=== PATIENT | male | born 1935 | race Caucasian/White ===

== ENCOUNTER 2017-01-25 06:08 | Inpatient (IN) | payer MEDICARE, OTHER ==
--- NOTE | 2017-01-25 05:28 | EDM.PDOC ---
ED HISTORY OF PRESENT ILLNESS - General Chief Complaint: Cardiovascular Problem Stated Complaint: IN BY AMBULANCE Time Seen by Provider: 01/25/17 05:25 Source of Information: Reports: Patient, EMS History Limitations: Reports: No limitations - History of Present Illness INITIAL COMMENTS - FREE TEXT/NARRATIVE: 81 yo white male w/ increasing SOB X 2 days. PMHx. CHF. Pt. denies Chest Pain Symptom Onset Date: 01/24/17 Symptom Onset Time: 12:00 Timing/Duration: Reports: Day(s): Severity: moderate Location, General: Reports: chest Worsens with: Reports: Movement Associated Symptoms (General): Reports: no other symptoms - Related Data Allergies/ADRs: Allergies Allergy/AdvReac Type Severity Reaction Status Date / Time No Known Allergies Allergy Verified 01/25/17 05:33 Home Meds: Home Meds Famotidine [Pepcid] 40 mg PO DAILY PRN 10/31/14 [History] Methocarbamol 375 mg PO DAILY PRN 10/31/14 [History] Rivaroxaban [Xarelto] 20 mg PO DAILY 10/31/14 [History] Zolpidem [Ambien] 5 mg PO BEDTIME PRN 10/31/14 [History] Citalopram [Celexa] 20 mg PO DAILY PRN 07/19/15 [History] Sennosides/Docusate Sodium [Stool Softener] 1 tab PO DAILY PRN 07/19/15 [History ] Albuterol [Ventolin HFA] 2 puff INH ASDIRECTED PRN 11/20/16 [History] Fluticasone Propionate [Flovent] 2 inh INH DAILY 11/20/16 [History] Levothyroxine [Synthroid] 100 mcg PO DAILY 11/20/16 [History] Lisinopril 5 mg PO DAILY 11/20/16 [History] Metoprolol Succinate [Toprol XL] 100 mg PO DAILY 11/20/16 [History] Furosemide [Lasix] 40 mg PO BIDDIURETIC 30 Days 11/24/16 [Rx] Potassium Chloride [Klor-Con 10] 20 meq PO WITHBREAKFAST 30 Days 11/24/16 [Rx] Past Medical History HEENT History: Reports: Impaired vision Other HEENT History: wears glasses for reading only Cardiovascular History: Reports: Afib, CAD, Heart Failure, [place], SOB on exertion Respiratory History: Reports: SOB Gastrointestinal History: Reports: GERD Genitourinary History: Reports: None Musculoskeletal History: Reports: Back pain, chronic, Other (see below) Other Musculoskeletal History: right hip pain, chronic Neurological History: Reports: CVA Psychiatric History: Reports: Depression Endocrine/Metabolic History: Reports: Diabetes, type II, Hypothyroidism Hematologic History: Reports: Anticoagulation therapy Immunologic History: Reports: None Oncologic (Cancer) History: Reports: None Dermatologic History: Reports: None - Infectious Disease History Infectious Disease History: Reports: Chicken pox, Measles, Mumps - Past Surgical History Head Surgeries/Procedures: Reports: None Cardiovascular Surgical History: Reports: Aneurysm, Cardiac Ablation, Coronary artery bypass, Other (see below) Other Cardiovascular Surgeries/Procedures: cardioversion GI Surgical History: Reports: Other (see below) Other GI Surgeries/Procedures: abdominal aaortic aneurysm repair Social & Family History - Family History Family Medical History: Noncontributory Neurological: Reports: CVA - Tobacco Use Smoking Status *Q: Former Smoker Years of Tobacco use: 20 Packs/Tins Daily: 1 Second Hand Smoke Exposure: No - Caffeine Use Caffeine Use: Reports: Coffee - Alcohol Use Days Per Week of Alcohol Use: 7 Number of Drinks Per Day: 2 Total Drinks Per Week: 14 - Recreational Drug Use Recreational Drug Use: No - Living Situation & Occupation Living situation: Reports: , with spouse Occupation: retired ED ROS GENERAL - Review of Systems Review Of Systems: See Below Constitutional: Reports: no symptoms HEENT: Reports: No symptoms Respiratory: Reports: Shortness of Breath Cardiovascular: Reports: Edema (bilat legs) Endocrine: Reports: no symptoms GI/Abdominal: Reports: No symptoms : Reports: no symptoms Musculoskeletal: Reports: no symptoms Skin: Reports: no symptoms Neurological: Reports: No Symptoms Psychiatric: Reports: No symptoms Hematologic/Lymphatic: Reports: no symptoms Immunologic: Reports: no symptoms ED EXAM, GENERAL - Physical Exam Exam: See Below Exam Limited By: No limitations General Appearance: alert, obese Eye Exam: bilateral eye: PERRL Ears: normal external exam Nose: normal inspection Throat/Mouth: Normal inspection Head: atraumatic Neck: normal inspection, supple, non-tender Respiratory/Chest: no respiratory distress, rales Cardiovascular: normal peripheral pulses, regular rate, rhythm Peripheral Pulses: 2+: carotid (L), carotid (R) GI/Abdominal: normal bowel sounds, soft, non tender Back Exam: normal inspection, full range of motion Extremities: pedal edema (bilateral legs), other Neurological: alert, oriented, CN II-XII intact Psychiatric: normal affect Skin Exam: Warm, Intact Lymphatic: no adenopathy Course - Vital Signs Last Recorded V/S: Last Vital Signs Temp 36.6 C 01/25/17 05:28 Pulse 90 01/25/17 05:28 Resp 20 01/25/17 05:28 BP 131/76 01/25/17 05:28 Pulse Ox 95 01/25/17 05:28 - Orders/Labs/Meds Orders: Active Orders 24 hr Category Date Time Status EKG Documentation Completion [RC] STAT Care 01/25/17 05:29 Active Insert Urinary Catheter [OM.PC] Q24H Care 01/25/17 05:30 Ordered Urinary Catheter Assessment [RC] ASDIRECTED Care 01/25/17 05:30 Active Chest 1V Frontal [CR] Urgent Exams 01/25/17 05:29 Taken TSH ULTRASENSITIVE [CHEM] Stat Lab 01/25/17 05:45 Received Labs: Laboratory Tests 01/25/17 01/25/17 01/25/17 Range/Units 05:45 05:45 05:45 WBC 8.2 (5.0-10.0) 10^3/uL RBC 4.19 L (4.6-6.2) 10^6/uL Hgb 13.0 L (14.0-18.0) g/dL Hct 40.4 (40.0-54.0) % MCV 96.4 (80-100) fL MCH 31.0 (27.0-34.0) pg MCHC 32.2 L (33.0-35.0) g/dL Plt Count 196 (150-450) 10^3/uL Neut % (Auto) 71.9 (42.2-75.2) % Lymph % (Auto) 10.9 L (20.5-50.1) % Harvey % (Auto) 11.9 H (2-8) % Eos % (Auto) 5.1 H (1.0-3.0) % Baso % (Auto) 0.2 (0.0-1.0) % D-Dimer, Quantitative 1090 H (0-400) ng/mL Sodium 139 (135-145) mmol/L Potassium 4.0 (3.6-5.0) mmol/L Chloride 101 (101-111) mmol/L Carbon Dioxide 29.0 (21.0-31.0) mmol/L Anion Gap 13.0 BUN 20 H (7-18) mg/dL Creatinine 1.2 (0.6-1.3) mg/dL Est Cr Clr Drug Dosing 45.90 mL/min Estimated GFR (MDRD) 58 BUN/Creatinine Ratio 16.66 Glucose 145 H (74-105) mg/dL Calcium 8.7 (8.4-10.2) mg/dl Total Bilirubin 1.6 H (0.2-1.0) mg/dL AST 21 (10-42) IU/L ALT 14 (10-60) IU/L Alkaline Phosphatase 82 (42-121) IU/L Troponin I < 0.02 (0.00-0.02) ng/ml B-Natriuretic Peptide 402 H (0-100) pg/ml Total Protein 7.0 (6.7-8.2) g/dl Albumin 4.0 (3.2-5.5) g/dl Globulin 3.0 Albumin/Globulin Ratio 1.33 Meds: Medications Discontinued Medications Generic Name Dose Route Start Last Admin Trade Name Freq PRN Reason Stop Dose Admin Furosemide 40 mg 01/25/17 05:29 01/25/17 05:44 Lasix IVPUSH 01/25/17 05:30 40 mg NOW ONE Administration Departure - Departure Time of Disposition: 06:36 Disposition: Admitted As Inpatient 67 Condition: fair Clinical Impression: CHF (congestive heart failure), Pleural effusion due to congestive heart failure - My Orders Last 24 Hours: My Active Orders 01/25/17 05:29 EKG Documentation Completion [RC] STAT Chest 1V Frontal [CR] Urgent 01/25/17 05:30 Insert Urinary Catheter [OM.PC] Q24H Urinary Catheter Assessment [RC] ASDIRECTED 01/25/17 05:45 TSH ULTRASENSITIVE [CHEM] Stat - Assessment/Plan Last 24 Hours: My Active Orders 01/25/17 05:29 EKG Documentation Completion [RC] STAT Chest 1V Frontal [CR] Urgent 01/25/17 05:30 Insert Urinary Catheter [OM.PC] Q24H Urinary Catheter Assessment [RC] ASDIRECTED 01/25/17 05:45 TSH ULTRASENSITIVE [CHEM] Stat
[~2017-01-25 06:08] MED LIST: Furosemide 40 MG/4 ML VIAL IVPUSH ONE
[2017-01-25 06:11] LABS: CHLORIDE,CL 101 mmol/L (101-111); SODIUM,NA 139 mmol/L (135-145)
[2017-01-25] MEDS ORDERED: Morphine 2 MG/ML Syringe IVPUSH PRN (07:24)
[2017-01-25] MEDS ORDERED: Famotidine 20 MG Tab PO PRN (07:29)
[2017-01-25] MEDS ORDERED: Albuterol 6.7 GM Inhaler INH PRN (07:29)
[2017-01-25] MEDS ORDERED: METHOCARBAMOL PO PRN (07:29)
[2017-01-25] MEDS ORDERED: FLUTICASONE PROPIONATE INH SCH (09:00)
[2017-01-25] MEDS: Furosemide 40 MG/4 ML VIAL IVPUSH SCH ×2 (10:24→13:17)
[2017-01-25] MEDS: Rivaroxaban 10 MG Tab PO SCH (10:48)
[2017-01-25] MEDS: Levothyroxine 100 MCG Tab PO SCH (10:48)
[2017-01-25] MEDS: Lisinopril 5 MG Tab PO SCH (10:49)
[2017-01-25] MEDS: Metoprolol Succinate 50 MG Tab.ER PO SCH (10:49)
[2017-01-25] MEDS: Albuterol/Ipratropium 3.0-0.5 MG/3 ML Neb Soln NEB PRN ×3 (10:50→19:43)
--- NOTE | 2017-01-25 12:07 | HP ---
CHIEF COMPLAINT: Shortness of breath. HISTORY OF PRESENT ILLNESS: Mr. Roberto Carlos Alvarenga presented with complaint of shortness of breath via EMS. The patient started having shortness of breath yesterday. Initially, it was mild, but significantly got worse over time. He was not able to sleep last night and had to sit off most of the time. Shortness of breath is present at rest, but significantly worse with activity. He does have bilateral lower extremity edema. No significant cough, fever, chills, or rigors. No nausea or vomiting. The patient has been compliant with his medications. He normally weighs himself and has not noted any significant change in his weight. No abdominal pain. No dysuria or frequency or micturition. He does have history of atrial fibrillation, on chronic anticoagulation. REVIEW OF SYSTEMS: Constitutional, cardiac, respiratory, gastrointestinal, genitourinary and neurologic system were reviewed. Allergy, hematology, oncology also reviewed. No other pertinent findings. SOCIAL HISTORY: The patient resides with his . Denies any alcohol use. FAMILY HISTORY: Reviewed and considered noncontributory. MEDICATIONS: Reviewed. The patient is on: 1. Xarelto. 2. Lasix 40 mg b.i.d. OBJECTIVE: General: The patient is alert, oriented to place, time, and person. Head: Atraumatic and normocephalic. Ear, Nose, and Throat: Unremarkable. Neck: Supple. Chest: Diminished breath sounds bilaterally. Crackles bilaterally. CVS: No significant murmur appreciated. Jugular venous pressure appears elevated. Abdomen: Soft, nontender. Extremities: Bilateral pitting edema. Skin: No rash. Neuro: Symmetric strength in all extremities. Vital signs: Reviewed. The patient was hypoxic on room air. He is on 2 L now and saturating at 92%. ASSESSMENT: 1. Acute hypoxemic respiratory failure. The patient's oxygen saturation was down in the 80s when he was picked up by the EMS. He is requiring 2 L/minute of oxygen at this point. 2. Acute exacerbation of diastolic congestive heart failure. The patient has a prior history of congestive heart failure with diastolic dysfunction. His ejection fraction was normal at more than 60%. 3. Chronic anticoagulation. The patient has been on Xarelto. 4. Atrial fibrillation. 5. Hypertension. PLAN: 1. Admit the patient to medical floor. 2. Place him on telemetry. 3. Troponin every 6 x2. 4. Start intravenous Lasix 40 mg every 12 hours. 5. Monitor input and output closely. 6. Start the patient on Xarelto. 7. Chart reviewed. Discussed with emergency room provider. [facility] /[id number]
[2017-01-25] MEDS ORDERED: Levofloxacin 500 MG Tab PO ONE (12:15)
[2017-01-25] MEDS ORDERED: Heparin Sodium 5,000 Units/ML Vial SUBCUT SCH (14:00)
--- NOTE | 2017-01-25 16:52 | EKG ---
01/25/2017 - RAFAEL POON - This 12-lead EKG shows atrial fibrillation with a controlled ventricular rate of 87. Low voltage in the precordial leads. No acute ST-segment or T-wave changes. [facility] /[id number]
[2017-01-25] MEDS ORDERED: Bisacodyl 10 MG Supp RECTAL PRN (18:00)
[2017-01-25] MEDS ORDERED: Magnesium Hydroxide 400 MG/5 ML Susp 30 ML Cup PO ONE (18:00)
--- NOTE | 2017-01-25 20:52 | PN ---
DATE: 01/25/2017 HISTORY OF PRESENT ILLNESS: Mr. Alvarenga is an 81-year-old gentleman with past medical history of diastolic congestive heart failure, coronary artery disease, renal insufficiency, diabetes, carotid artery disease, and status post AAA repair. He was in his usual state of health yesterday until about 4 in the afternoon when he began to develop dyspnea and this worsened overnight. He presented to the emergency room at about 5 o'clock this morning. A single-view chest x-ray was done, which showed some mild pulmonary venous congestion and underlying multifocal pneumonia could not be completely ruled out due to the small right pleural effusion. There is cardiomegaly. Labs at the time of admission showed normal white count and platelets. Hemoglobin and hematocrit were 13 and 40. Electrolytes were normal. BUN and creatinine were 20 and 1.2 with GFR of 58. Two troponins were negative at less than 0.02. His baseline BNP is usually about 200, on admission BNP was 400. His EKG showed atrial fibrillation with a controlled ventricular rate of 87 without any acute changes. He was admitted for further management. He was given 40 mg IV Lasix. He was started on levofloxacin to cover for pneumonia. He is already on Xarelto and this will be continued for VTE prophylaxis and his usual medications were continued. Review of his clinical data shows that he has had a vigorous 2 L diuresis since the time of the IV Lasix and he will be continued on his usual dose of 40 mg twice a day and this will be given by the IV route. Otherwise, vital signs have been stable. Ventricular rate has remained controlled and blood pressures are adequate. He has improved greatly over the course of the day. PHYSICAL EXAMINATION: VITAL SIGNS: On exam, he is lying comfortably in bed, almost flat. Blood pressure is 148/77, pulse 82 and irregular, respiratory rate 20, oxygen saturation 96% on 2 L, and he is afebrile. HEENT: Unremarkable. ENT was clear. Chest: Showed diminished but clear bilateral breath sounds without active wheezing. There was no dyspnea. Heart: Showed an irregular rate and rhythm. Abdomen: Benign. Extremities: Showed chronic lower extremity edema. Neurologic: He was intact. ASSESSMENT AND PLAN: We will continue the present management. He will continue to receive Lasix by the IV route. He seems to be improving fairly rapidly. No other changes are made in his care today. [facility] /[id number] [place]
[2017-01-26] MEDS: Levothyroxine 100 MCG Tab PO SCH (06:19)
[2017-01-26] MEDS: Lisinopril 5 MG Tab PO SCH (08:33)
[2017-01-26] MEDS: Rivaroxaban 10 MG Tab PO SCH (08:33)
[2017-01-26] MEDS: Metoprolol Succinate 50 MG Tab.ER PO SCH (08:34)
[2017-01-26] MEDS: Furosemide 40 MG/4 ML VIAL IVPUSH SCH ×2 (08:35→13:34)
[2017-01-26] MEDS: Sodium Chloride 0.9% 10 ML Syringe FLUSH PRN ×2 (08:35→13:34)
[2017-01-26] MEDS: Albuterol/Ipratropium 3.0-0.5 MG/3 ML Neb Soln NEB PRN ×2 (09:54→20:08)
--- NOTE | 2017-01-26 10:06 | PN ---
DATE: 01/26/2017 SUBJECTIVE: The patient is 81-year-old gentleman, admitted with acute on chronic diastolic heart failure, and also suspected pneumonia. The patient was empirically started on Levaquin and was also started on IV Lasix 40 mg IV b.i.d., and patient had a good diuresis. The patient this morning is feeling much better. He denies any chest pain, abdominal pain, nausea, vomiting, or any other significant complaints. OBJECTIVE: Vital signs: Blood pressure is 145/83, pulse 72, respirations 20, temperature of 98.1, saturation is 97% on 2 L. Heart: Regular rate and rhythm. Lungs: Diminished breath sounds on both bases, still remarkable for some mild crackles, and mild expiratory wheeze. Abdomen: Obese. Otherwise, soft and nontender. Bowel sounds positive. Extremities: Still remarkable for 1 to 2+ bilateral pedal edema. MEDICATIONS: Reviewed. PLAN: We will continue with IV Lasix and Levaquin, and the rest of his management. We will recheck a CBC and basic metabolic panel in a.m. [facility] /[id number]
[2017-01-26] MEDS: Levofloxacin 250 MG Tab PO SCH (11:50)
[2017-01-26] MEDS: METHOCARBAMOL PO PRN (22:03)
[2017-01-26] MEDS: Citalopram 20 MG Tab PO PRN (22:04)
[2017-01-26] MEDS: Benzonatate 100 MG Cap PO PRN (22:16)
[2017-01-27] MEDS: Levothyroxine 100 MCG Tab PO SCH (07:03)
[2017-01-27] MEDS: Furosemide 40 MG/4 ML VIAL IVPUSH SCH ×2 (08:13→13:26)
[2017-01-27] MEDS: Sodium Chloride 0.9% 10 ML Syringe FLUSH PRN ×5 (08:13→20:08)
[2017-01-27] MEDS: Metoprolol Succinate 50 MG Tab.ER PO SCH (08:17)
[2017-01-27] MEDS: Rivaroxaban 10 MG Tab PO SCH (08:18)
[2017-01-27] MEDS: Lisinopril 5 MG Tab PO SCH (08:19)
[2017-01-27] MEDS: methylPREDNISolone Sodium Succinate 40 MG/1 ML SDV IVPUSH SCH ×2 (10:05→17:08)
--- NOTE | 2017-01-27 10:57 | PN ---
DATE: 01/27/2017 SUBJECTIVE: The patient had a good night sleep, but the patient is still wheezing though and still has some shortness of breath. He denies any chest pain or palpitation, abdominal pain, nausea, or vomiting. His Flynn catheter drainage is slightly bloody but apparently, the patient has been pulling on his catheter while he was sleeping; but, the patient denies any significant pain. MEDICATIONS: Reviewed. OBJECTIVE: Vital Signs: Blood pressure is 141/79, pulse of 82, respirations of 20, temperature is 97.6, saturation is 88% on 2.5 L per nasal cannula. Heart: Regular rate and rhythm. Lungs: Remarkable for scattered wheezing bilaterally with diminished breath sounds on both bases. Abdomen: Obese, soft, nontender. Extremities: Still remarkable for 1+ bilateral pedal edema. No calf tenderness. LABORATORY DATA: Lab workup this morning, CBC; WBC 8.5, hemoglobin is 13.5, hematocrit is 42.6, platelet is 222. Chem-6; CO2 is 32, BUN is 26, glucose is 131, the rest of the panel is unremarkable. PLAN: We will continue with his IV Levaquin, and continue with the IV Lasix. I am also going to start the patient on Solu-Medrol because of his wheezing. We will continue with the rest of his other medication. [facility] /[id number]
[2017-01-27] MEDS: Levofloxacin 250 MG Tab PO SCH (11:17)
[2017-01-27] MEDS: Benzonatate 100 MG Cap PO PRN (20:08)
[2017-01-27] MEDS: Citalopram 20 MG Tab PO PRN (20:08)
[2017-01-27] MEDS: METHOCARBAMOL PO PRN (20:09)
[2017-01-27] MEDS: Albuterol/Ipratropium 3.0-0.5 MG/3 ML Neb Soln NEB PRN (20:24)
[2017-01-27] MEDS: Zolpidem 5 MG Tab PO PRN (22:52)
[2017-01-28] MEDS: methylPREDNISolone Sodium Succinate 40 MG/1 ML SDV IVPUSH SCH ×3 (00:53→17:04)
[2017-01-28] MEDS: Sodium Chloride 0.9% 10 ML Syringe FLUSH PRN ×4 (00:53→17:04)
[2017-01-28] MEDS: Albuterol/Ipratropium 3.0-0.5 MG/3 ML Neb Soln NEB PRN (00:57)
[2017-01-28] MEDS: Benzonatate 100 MG Cap PO PRN ×2 (00:57→20:14)
[2017-01-28] MEDS: Levothyroxine 100 MCG Tab PO SCH (06:12)
[2017-01-28] MEDS: Furosemide 40 MG/4 ML VIAL IVPUSH SCH (07:30)
[2017-01-28] MEDS: Rivaroxaban 10 MG Tab PO SCH (08:43)
[2017-01-28] MEDS: Metoprolol Succinate 50 MG Tab.ER PO SCH (08:43)
[2017-01-28] MEDS: Lisinopril 5 MG Tab PO SCH (08:44)
--- NOTE | 2017-01-28 10:53 | CR ---
Clinical history: 81-year-old male reported on 25 January film to have "possible pulmonary edema versu s multifocal pneumonia and small right pleural effusion". Interpretation: Improved. PA/lateral chest films confirm small dependent pleural effusions blunting the posterior costophrenic sulci (left greater than right) this patient with sternotomy wires and arteriovascular calcificatio ns. Trace fluid in the fissures. Normal cardiac silhouette. No alveolar edema. Subtle right infrahilar atelectasis (infiltrate?). No sign of lung mass or other focal lobar consolidation.
[2017-01-28] MEDS: Levofloxacin 250 MG Tab PO SCH (11:29)
[2017-01-28] MEDS: Furosemide 20 MG Tab PO SCH (13:39)
[2017-01-28] MEDS: METHOCARBAMOL PO PRN (20:13)
[2017-01-28] MEDS: Zolpidem 5 MG Tab PO PRN (20:14)
[2017-01-28] MEDS: Citalopram 20 MG Tab PO PRN (20:14)
[2017-01-29] MEDS: Levothyroxine 100 MCG Tab PO SCH (06:39)
[2017-01-29] MEDS ORDERED: predniSONE 20 MG Tab PO SCH (08:00)
[2017-01-29] MEDS ORDERED: METHOCARBAMOL PO PRN (08:36)
--- NOTE | 2017-01-29 08:53 | PN ---
DATE: 01/28/2017 SUBJECTIVE: The patient is doing much better. He mentioned that his breathing is much better and he had a good night sleep. The patient denies any chest pain, abdominal pain, nausea, or vomiting. OBJECTIVE: Vital Signs: Blood pressure is 129/74, pulse of 97, respirations of 20, temperature of 97.7, saturation is 96% on 1 L per nasal cannula. Heart: Regular rate and rhythm. Normal S1 and S2. LUNGS: Have diminished breath sounds on both bases, but wheezing has improved and has disappeared. No significant crackles. Abdomen: Obese, soft, nontender. Bowel sounds positive. Extremities: Still remarkable for 1 to 2+ bilateral pedal edema. PLAN: We will continue with his present management, and we will do a chest x- ray today for followup. We will recheck a CBC and comp panel in a.m. [facility] /[id number]
[2017-01-29] MEDS ORDERED: Metoprolol Succinate 50 MG Tab.ER PO SCH (09:00)
--- NOTE | 2017-01-29 09:08 | PCM.DCSUM1 ---
Discharge Summary - Hospital Course Free Text/Narrative:: 81-year-old male with spastic history of diabetes mellitus, atrial fibrillations status post ablation, diastolic congestive heart failure present to the emergency room with worsening shortness of breath, most his activities, in addition to lower extremities edema. He had no significant cough, fever, chills, rigors. his exam on admission revealed diminished sounds bilaterally and bilateral crackles. he had bilateral pitting edema. His sats was 92% on 2 L of the oxygen per nasal cannula. on admission WBC 8.2. Hemoglobin 13.0 d-dimer 1090. Sodium 139. BUN 20. Creatinine 1.2. Blood glucose 145. he was started on Lasix 40 mg IV every 12 hours and his home medications were resumed. Liver and was started on Levaquin 250 mg daily for possible pneumonia as his chest x-ray showed possible subtle right infiltrates. yesterday he was started on steroids. Today patient states that he feels much better. He stayed to me( I'm ready to run). He denies shortness of breath, wheezing, chest pain, palpitation, fever, chills, nausea, vomiting, been up in coronary symptoms, constipation. Initially he had Flynn catheter which was removed yesterday. He is urinating normally. He is discharged today to resume home medications, continue Levaquin and prednisone for another 3 days. he was advised to followup with his private care provider in the next 3-5 days. I counseled him about the symptoms that will warranty coming back to the emergency room. patient verbalized understanding and agreed to the plan. today his WBC 18.9 which could be due to starting steroids yesterday. He is clinically much better and is not in distress. - Discharge Data Discharge Date: 01/29/17 Discharge Disposition: Home, Self-Care 01 Condition: Fair - Discharge Diagnosis/Problem(s) (1) CHF (congestive heart failure) SNOMED Code(s): 56780896 ICD Code: I50.9 - HEART FAILURE, UNSPECIFIED Status: Acute Current Visit : Yes (2) Pleural effusion due to congestive heart failure SNOMED Code(s): 10218771 ICD Code: I50.9 - HEART FAILURE, UNSPECIFIED Status: Acute Current Visit : Yes (3) Atrial fibrillation SNOMED Code(s): 96277135 ICD Code: I48.91 - UNSPECIFIED ATRIAL FIBRILLATION Status: Acute Current Visit: No Qualifiers: Atrial fibrillation type: persistent Qualified Code(s): I48.1 - Persistent atrial fibrillation (4) Bronchitis SNOMED Code(s): 60095957 ICD Code: J40 - BRONCHITIS, NOT SPECIFIED ACUTE OR CHRONIC Status: Acute Current Visit: No (5) Congestive heart failure SNOMED Code(s): 67205868 ICD Code: I50.9 - HEART FAILURE, UNSPECIFIED Status: Acute Current Visit : No Qualifiers: Congestive heart failure type: unspecified congestive heart failure type Congestive heart failure chronicity: acute on chronic Qualified Code(s): I50.9 - Heart failure, unspecified (6) Hypertension SNOMED Code(s): 48946543 ICD Code: I10 - ESSENTIAL (PRIMARY) HYPERTENSION Status: Acute Current Visit: No Qualifiers: Hypertension type: essential hypertension Qualified Code(s): I10 - Essential (primary) hypertension - Patient Instructions Diet: Heart Healthy Diet, Diabetic Diet Activity: As Tolerated Showering/Bathing: February Shower Notify Provider of: Fever - Discharge Plan Prescriptions/Med Rec: Benzonatate [Tessalon Perles] 100 mg PO QID PRN #30 cap PRN Reason: Cough Levofloxacin [Levaquin] 250 mg PO Q24H #3 tablet Prednisone [IJD: predniSONE] 40 mg PO WITHBREAKFAST #6 tablet Home Medications: Home Meds Famotidine [Pepcid] 40 mg PO DAILY PRN 10/31/14 [History] Rivaroxaban [Xarelto] 20 mg PO DAILY 10/31/14 [History] Citalopram [Celexa] 20 mg PO DAILY PRN 07/19/15 [History] Sennosides/Docusate Sodium [Stool Softener] 1 tab PO DAILY PRN 07/19/15 [History ] Albuterol [Ventolin HFA] 2 puff INH Q6H PRN 11/20/16 [History] Levothyroxine [Synthroid] 100 mcg PO DAILY 11/20/16 [History] Lisinopril 5 mg PO DAILY 11/20/16 [History] Furosemide [Lasix] 40 mg PO BIDDIURETIC 30 Days 11/24/16 [Rx] Methocarbamol [Robaxin] 250 mg PO Q6H PRN 01/25/17 [History] Metoprolol Succinate [Toprol XL] 100 mg PO DAILY 01/25/17 [History] Zolpidem Tartrate [Ambien] 5 mg PO BEDTIME PRN 01/25/17 [History] Benzonatate [Tessalon Perles] 100 mg PO QID PRN #30 cap 01/29/17 [Rx] Levofloxacin [Levaquin] 250 mg PO Q24H #3 tablet 01/29/17 [Rx] Prednisone [IJD: predniSONE] 40 mg PO WITHBREAKFAST #6 tablet 01/29/17 [Rx] Patient Handouts: Heart Failure, [id number], Prednisone tablets Referrals: Lesly Castle MD [Primary Care Provider] - - Review of Systems General: Reports: No Symptoms HEENT: Reports: no symptoms Pulmonary: Reports: no symptoms Cardiovascular: Reports: No Symptoms Gastrointestinal: Reports: No symptoms Genitourinary: Reports: no symptoms Musculoskeletal: Reports: no symptoms Skin: Reports: no symptoms Neurological: Reports: No Symptoms Psychiatric: Reports: no symptoms - Patient Data Vitals - Most Recent: Last Vital Signs Temp 36.5 C 01/29/17 08:00 Pulse 80 01/29/17 08:00 Resp 20 01/29/17 08:00 BP 159/83 H 01/29/17 08:00 Pulse Ox 93 L 01/29/17 08:00 Weight - Most Recent: 107.864 kg I&O - Last 24 hours: Intake & Output 01/28/17 01/29/17 01/29/17 22:59 06:59 14:59 Intake Total 360 500 Output Total 200 600 Balance 160 -100 Lab Results - Last 24 hrs: Laboratory Results - last 24 hr 01/29/17 01/29/17 Range/Units 06:15 06:15 WBC 18.9 H (5.0-10.0) 10^3/uL RBC 4.49 L (4.6-6.2) 10^6/uL Hgb 13.8 L (14.0-18.0) g/dL Hct 43.1 (40.0-54.0) % MCV 96.0 (80-100) fL MCH 30.7 (27.0-34.0) pg MCHC 32.0 L (33.0-35.0) g/dL Plt Count 277 (150-450) 10^3/uL Neut % (Auto) 90.5 H (42.2-75.2) % Lymph % (Auto) 4.9 L (20.5-50.1) % [place] % (Auto) 4.5 (2-8) % Eos % (Auto) 0.0 L (1.0-3.0) % Baso % (Auto) 0.1 (0.0-1.0) % Sodium 141 (135-145) mmol/L Potassium 5.0 (3.6-5.0) mmol/L Chloride 101 (101-111) mmol/L Carbon Dioxide 31.0 (21.0-31.0) mmol/L Anion Gap 14.0 BUN 42 H (7-18) mg/dL Creatinine 1.3 (0.6-1.3) mg/dL Est Cr Clr Drug Dosing 42.37 mL/min Estimated GFR (MDRD) 53 Glucose 193 H (74-105) mg/dL Calcium 8.9 (8.4-10.2) mg/dl Med Orders - Current: Current Medications Albuterol (Proventil Hfa) 0 gm INH Q6H PRN PRN Reason: Wheezing Albuterol/Ipratropium (Duoneb 3.0-0.5 Mg/3 Ml) 3 ml NEB Q4H PRN PRN Reason: shortness of breath/wheezing Last Admin: 01/28/17 00:57 Dose: 3 ml Benzonatate (Tessalon Perles) 100 mg PO QID PRN PRN Reason: Cough Last Admin: 01/28/17 20:14 Dose: 100 mg Bisacodyl (Dulcolax) 10 mg RECTAL DAILY PRN PRN Reason: Constipation Citalopram Hydrobromide (Celexa) 20 mg PO DAILY PRN PRN Reason: Anxiety Last Admin: 01/28/17 20:14 Dose: 20 mg Famotidine (Pepcid) 40 mg PO DAILY PRN PRN Reason: Heartburn Furosemide (Lasix) 40 mg PO BIDDIURETIC DIVYA Levofloxacin (Levaquin) 250 mg PO Q24H [facility] Stop: 02/01/17 11:01 Last Admin: 01/28/17 11:29 Dose: 250 mg Levothyroxine Sodium (Synthroid) 100 mcg PO DAILY@0700 [facility] Last Admin: 01/29/17 06:39 Dose: 100 mcg Lisinopril (Prinivil) 5 mg PO DAILY [facility] Last Admin: 01/28/17 08:44 Dose: 5 mg Metoprolol Succinate (Toprol Xl) 100 mg PO DAILY [facility] Last Admin: 01/28/17 08:43 Dose: 100 mg Morphine Sulfate (Morphine) 2 mg IVPUSH Q2H PRN PRN Reason: Pain (severe 7-10) Methocarbamol 250mg* (*Own Med) 0 each PO Q6H PRN PRN Reason: Muscle Spasm Last Admin: 01/28/17 20:13 Dose: 1 each Non-Formulary Medication (Methocarbamol [Robaxin]) 250 mg PO Q6H PRN PRN Reason: Pain Prednisone (Prednisone) 40 mg PO WITHBREAKFAST [facility] Rivaroxaban (Xarelto) 20 mg PO DAILY [facility] Last Admin: 01/28/17 08:43 Dose: 20 mg Senna/Docusate Sodium (Senna Plus) 1 tab PO BEDTIME [facility] Last Admin: 01/28/17 20:14 Dose: 1 tab Sodium Chloride (Saline Flush) 10 ml FLUSH ASDIRECTED PRN PRN Reason: Keep Vein Open Last Admin: 01/28/17 17:04 Dose: 10 ml Zolpidem Tartrate (Ambien) 5 mg PO BEDTIME PRN PRN Reason: Sleep Last Admin: 01/28/17 20:14 Dose: 5 mg Discontinued Medications Furosemide (Lasix) 40 mg IVPUSH NOW ONE Stop: 01/25/17 05:30 Last Admin: 01/25/17 05:44 Dose: 40 mg Furosemide (Lasix) 40 mg IVPUSH BIDDIURETIC [facility] Last Admin: 01/28/17 07:30 Dose: 40 mg Furosemide (Lasix) 20 mg PO BIDDIURETIC [facility] Last Admin: 01/28/17 13:39 Dose: 20 mg Heparin Sodium (Porcine) (Heparin Sodium) 5,000 units SUBCUT Q8HR [facility] Levofloxacin (Levaquin) 500 mg PO ONETIME ONE Stop: 01/25/17 12:16 Last Admin: 01/25/17 13:16 Dose: 500 mg Magnesium Hydroxide (Milk Of Magnesia) 30 ml PO ONETIME ONE Stop: 01/25/17 18:01 Last Admin: 01/25/17 19:03 Dose: 30 ml Methylprednisolone Sodium Succinate (Solu-Medrol) 40 mg IVPUSH Q8H [facility] Last Admin: 01/28/17 17:04 Dose: 40 mg Metoprolol Succinate (Toprol Xl) 100 mg PO DAILY [facility] Non-Formulary Medication (Fluticasone Propionate [Flovent]) 2 inh INH DAILY [facility] Last Admin: 01/25/17 13:01 Dose: Not Given Non-Formulary Medication (Methocarbamol [Methocarbamol]) 375 mg PO DAILY PRN PRN Reason: Pain Senna/Docusate Sodium (Senna Plus) 1 tab PO DAILY PRN PRN Reason: Constipation - Exam General: Reports: alert, oriented, cooperative. Denies: no acute distress HEENT: Reports: Pupils equal, Pupils reactive, EOMI, Mucous membr. moist/pink Neck: Reports: supple, no JVD Lungs: Reports: Normal respiratory effort, Decreased breath sounds (globally, but fair air exchange), Wheezing (sporadic, faint). Denies: Crackles, Rales, Rhonchi, Rub, Stridor Cardiovascular: Reports: Irregular Rhythm (Male) Exam: No hernia Back Exam: Reports: normal inspection Extremities: Reports: normal pulses, no tenderness/swelling, no clubbing, no cyanosis, no calf tenderness, calf tenderness, edema (bilateral trace lower extremity edema) Skin: Reports: warm, dry, intact Neurological: Reports: no new focal deficit Psy/Mental Status: Reports: alert, normal affect, normal mood *Q Meaningful Use (DIS) - VTE *Q VTE Criteria *Q: - Stroke *Q Stroke Criteria *Q: - AMI *Q AMI Criteria *Q:
[2017-01-29] MEDS: Rivaroxaban 10 MG Tab PO SCH (09:52)
[2017-01-29] MEDS: Lisinopril 5 MG Tab PO SCH (09:53)
[2017-01-29] MEDS: Metoprolol Succinate 50 MG Tab.ER PO SCH (09:58)
[2017-01-29 09:59] VITALS: BP 145/73
[2017-01-29] MEDS: Furosemide 20 MG Tab PO SCH (10:46)
[2017-01-29] MEDS: Levofloxacin 250 MG Tab PO SCH (12:12)
[2017-01-29] MEDS ORDERED: Furosemide 40 MG Tab PO SCH (14:00)
== END 2017-01-29 11:20 | disposition home or self-care (01) | DRG 291 ==
LOC: DL.ED 06:08 → UNDOADMIN 06:40 → DL.MS 06:40
PROVIDERS: ADMIT Hospitalist; ATTEND Hospitalist
DX: I50.9 Heart failure, unspecified (principal); I50.33 Acute on chronic diastolic (congestive) heart failure; J96.91 Respiratory failure, unspecified with hypoxia; J18.9 Pneumonia, unspecified organism; E11.9 Type 2 diabetes mellitus without complications; I48.91 Unspecified atrial fibrillation; J40 Bronchitis, not specified as acute or chronic; I25.10 Atherosclerotic heart disease of native coronary artery without angina pectoris
CPT/HCPCS: 36415; 51702; 71010; 80053; 83880; 84443; 84484; 85025; 85379; 93005; 93010; 96374; 99285 ×2; J1940; 71020; 80048; 94010; 94640; A9270-GY; J2920; J7050

== ENCOUNTER 2017-06-07 17:07 | Emergency (ER) | payer MEDICARE, OTHER ==
[2017-06-07] MEDS ORDERED: Albuterol/Ipratropium 3.0-0.5 MG/3 ML Neb Soln NEB ONE (17:31)
--- NOTE | 2017-06-07 19:10 | EDM.PDOC ---
Scribed by Nelda Sams 06/07/17 2670 for Kelvin Dahl MD <Kelvin Dahl - Last Filed: 06/07/17 19:09> ED HPI GENERAL MEDICAL PROBLEM - General Chief Complaint: Chest Pain Stated Complaint: COMING BY AMBULANCE Time Seen by Provider: 06/07/17 17:24 Source of Information: Reports: Patient, RN, RN Notes Reviewed History Limitations: Reports: No Limitations - History of Present Illness INITIAL COMMENTS - FREE TEXT/NARRATIVE: Complained of not feeling well in general for past 3 days. Patient reports non- productive cough, fatigue and loss of appetite loss. Denies chest pain, abdominal pain, nausea, vomiting, diarrhea, cough, fever or chills. Patient's reports patient had a brief episode this afternoon when he didn't recognize her. Patient denies confusion. Location: Reports: Chest Quality: Reports: Ache Severity: Moderate Improves with: Reports: None Worsens with: Reports: None Associated Symptoms: Reports: No Other Symptoms - Related Data Allergies Allergy/AdvReac Type Severity Reaction Status Date / Time No Known Allergies Allergy Verified 01/25/17 08:32 Home Meds: Home Meds Famotidine [Pepcid] 40 mg PO DAILY PRN 10/31/14 [History] Rivaroxaban [Xarelto] 20 mg PO DAILY 10/31/14 [History] Citalopram [Celexa] 20 mg PO DAILY 07/19/15 [History] Sennosides/Docusate Sodium [Stool Softener] 1 tab PO DAILY PRN 07/19/15 [History ] Albuterol [Ventolin HFA] 2 puff INH Q6H PRN 11/20/16 [History] Levothyroxine [Synthroid] 100 mcg PO DAILY 11/20/16 [History] Lisinopril 5 mg PO DAILY 11/20/16 [History] Furosemide [Lasix] 40 mg PO BIDDIURETIC 30 Days 11/24/16 [Rx] Methocarbamol [Robaxin] 250 mg PO Q6H PRN 01/25/17 [History] Metoprolol Succinate [Toprol XL] 100 mg PO DAILY 01/25/17 [History] Zolpidem Tartrate [Ambien] 5 mg PO BEDTIME PRN 01/25/17 [History] Glimepiride [Amaryl] 1 mg PO DAILY 06/07/17 [History] Rivaroxaban [Xarelto] 20 mg PO DAILY 06/07/17 [History] Rosuvastatin Calcium 5 mg PO Q48H 06/07/17 [History] Past Medical History HEENT History: Reports: Cataract, Hard of Hearing, Impaired Vision Other HEENT History: wears glasses for reading only Cardiovascular History: Reports: Afib, Aneurysm, CAD, Heart Failure, DC, SOB on Exertion Respiratory History: Reports: SOB Gastrointestinal History: Reports: Chronic Constipation, GERD Genitourinary History: Reports: None Musculoskeletal History: Reports: Back Pain, Chronic, Other (See Below) Other Musculoskeletal History: right hip pain, chronic Neurological History: Reports: CVA Psychiatric History: Reports: Depression Endocrine/Metabolic History: Reports: Hypothyroidism, Obesity/BMI 30+ Hematologic History: Reports: Anticoagulation Therapy Immunologic History: Reports: None Oncologic (Cancer) History: Reports: None Dermatologic History: Reports: None - Infectious Disease History Infectious Disease History: Reports: Chicken Pox, Measles, Mumps - Past Surgical History HEENT Surgical History: Reports: Cataract Surgery Cardiovascular Surgical History: Reports: Aneurysm, Cardiac Ablation, Coronary Artery Bypass, Other (See Below) GI Surgical History: Reports: Colonoscopy, Other (See Below) Social & Family History - Family History Family Medical History: Noncontributory Neurological: Reports: CVA - Tobacco Use Smoking Status *Q: Former Smoker Years of Tobacco use: 20 Packs/Tins Daily: 1 Used Tobacco, but Quit: Yes Month Tobacco Last Used: 1979 Second Hand Smoke Exposure: No - Caffeine Use Caffeine Use: Reports: Coffee - Alcohol Use Days Per Week of Alcohol Use: 7 Number of Drinks Per Day: 2 Total Drinks Per Week: 14 - Recreational Drug Use Recreational Drug Use: No - Living Situation & Occupation Living situation: Reports: , with Spouse Occupation: Retired ED ROS GENERAL - Review of Systems Review Of Systems: ROS reveals no pertinent complaints other than HPI. ED EXAM, GENERAL - Physical Exam Exam: See Below Exam Limited By: No Limitations General Appearance: Obese (elderly) Eye Exam: Bilateral Eye: Normal Inspection Ears: Normal External Exam, Normal Canal, Hearing Grossly Normal, Normal TMs Nose: Normal Inspection, Normal Mucosa, No Blood Throat/Mouth: Normal Inspection, Normal Lips, Normal Teeth, Normal Gums, Normal Oropharynx, Normal Voice, No Airway Compromise Head: Atraumatic, Normocephalic Neck: Normal Inspection, Supple, Non-Tender, Full Range of Motion Respiratory/Chest: Decreased Breath Sounds (in bilateral bases. ), Rales ( bibasilar rales. ), Wheezing (scattered. ) Cardiovascular: Irregularly Irregular GI/Abdominal: Other (benign, obese abdomen) (Male) Exam: Deferred Rectal (Males) Exam: Deferred Back Exam: Normal Inspection, Full Range of Motion, NT Extremities: Other (2+ edema to knees bilateral) Neurological: Alert, Oriented, CN II-XII Intact, Normal Cognition, Normal Gait, Normal Reflexes, No Motor/Sensory Deficits Psychiatric: Normal Affect, Normal Mood Skin Exam: Warm, Dry, Intact, Normal Color, No Rash EKG INTERPRETATION EKG Date: 06/07/17 Time: 17:40 Rhythm: A-Fib Rate (Beats/Min): 78 [place]: Normal P-Wave: Present QRS: Normal ST-T: Other (Nonspecific T abnormalities, diffuse leads.) QT: Prolonged Course - Vital Signs Last Recorded V/S: Last Vital Signs Temp 36.7 C 06/07/17 17:22 Pulse 65 06/07/17 17:22 Resp 20 06/07/17 17:22 BP 150/75 H 06/07/17 17:22 Pulse Ox 87 L 06/07/17 17:22 - Orders/Labs/Meds Orders: Active Orders 24 hr Category Date Time Status EKG 12 Lead [EKG Documentation Completion] [RC] URGENT Care 06/07/17 17:24 Active RT Aerosol Therapy [RC] ASDIRECTED Care 06/07/17 17:31 Active Chest 1V Frontal [CR] Urgent Exams 06/07/17 17:20 Taken Head wo Cont [CT] Stat Exams 06/07/17 18:16 Taken CULTURE BLOOD [BC] Stat Lab 06/07/17 17:35 Received CULTURE BLOOD [BC] Stat Lab 06/07/17 17:38 Received Blood Culture x2 Reflex Set [OM.PC] Stat Oth 06/07/17 17:20 Ordered Labs: Laboratory Tests 06/07/17 06/07/17 06/07/17 Range/Units 17:15 17:38 17:38 WBC 6.3 (5.0-10.0) 10^3/uL RBC 3.89 L (4.6-6.2) 10^6/uL Hgb 11.7 L (14.0-18.0) g/dL Hct 37.9 L (40.0-54.0) % MCV 97.4 (80-100) fL MCH 30.1 (27.0-34.0) pg MCHC 30.9 L (33.0-35.0) g/dL Plt Count 178 (150-450) 10^3/uL Neut % (Auto) 65.0 (42.2-75.2) % Lymph % (Auto) 19.4 L (20.5-50.1) % [place] % (Auto) 9.7 H (2-8) % Eos % (Auto) 5.4 H (1.0-3.0) % Baso % (Auto) 0.5 (0.0-1.0) % Sodium 144 (135-145) mmol/L Potassium 3.7 (3.6-5.0) mmol/L Chloride 105 (101-111) mmol/L Carbon Dioxide 27.0 (21.0-31.0) mmol/L Anion Gap 15.7 BUN 26 H (7-18) mg/dL Creatinine 1.5 H (0.6-1.3) mg/dL Est Cr Clr Drug Dosing 39.15 mL/min Estimated GFR (MDRD) 45 BUN/Creatinine Ratio 17.33 Glucose 139 H (74-105) mg/dL Lactic Acid (0.5-2.2) mmol/L Calcium 8.6 (8.4-10.2) mg/dl Total Bilirubin 1.4 H (0.2-1.0) mg/dL AST 19 (10-42) IU/L ALT 13 (10-60) IU/L Alkaline Phosphatase 78 (42-121) IU/L Creatine Kinase (26-174) IU/L Creatine Kinase Index (0-2.4) % CK-MB (CK-2) (0.4-4.7) ng/mL Troponin I (0.00-0.02) ng/ml B-Natriuretic Peptide 381 H (0-100) pg/ml Total Protein 6.7 (6.7-8.2) g/dl Albumin 4.0 (3.2-5.5) g/dl Globulin 2.7 Albumin/Globulin Ratio 1.48 Urine Color Yellow (YELLOW) Urine Appearance Slightly cloudy (CLEAR) Urine pH 5.5 (5.0-9.0) Ur Specific [place] 1.010 (1.005-1.030) Urine Protein Negative (NEGATIVE) Urine Glucose (UA) Negative (NEGATIVE) Urine Ketones Negative (NEGATIVE) Urine Occult Blood Negative (NEGATIVE) Urine Nitrite Negative (NEGATIVE) Urine Bilirubin Negative (NEGATIVE) Urine Urobilinogen >=8.0 H (0.2-1.0) mg/dL Ur Leukocyte Esterase Negative (NEGATIVE) Urine RBC 0-5 /HPF Urine WBC 0-5 (0-5/HPF) /HPF Ur Epithelial Cells Rare /HPF Urine Bacteria Rare (0-FEW/HPF) /HPF 06/07/17 06/07/17 06/07/17 Range/Units 17:38 17:38 17:38 WBC (5.0-10.0) 10^3/uL RBC (4.6-6.2) 10^6/uL Hgb (14.0-18.0) g/dL Hct (40.0-54.0) % MCV (80-100) fL MCH (27.0-34.0) pg MCHC (33.0-35.0) g/dL Plt Count (150-450) 10^3/uL Neut % (Auto) (42.2-75.2) % Lymph % (Auto) (20.5-50.1) % [place] % (Auto) (2-8) % Eos % (Auto) (1.0-3.0) % Baso % (Auto) (0.0-1.0) % Sodium (135-145) mmol/L Potassium (3.6-5.0) mmol/L Chloride (101-111) mmol/L Carbon Dioxide (21.0-31.0) mmol/L Anion Gap BUN (7-18) mg/dL Creatinine (0.6-1.3) mg/dL Est Cr Clr Drug Dosing mL/min Estimated GFR (MDRD) BUN/Creatinine Ratio Glucose (74-105) mg/dL Lactic Acid 2.2 (0.5-2.2) mmol/L Calcium (8.4-10.2) mg/dl Total Bilirubin (0.2-1.0) mg/dL AST (10-42) IU/L ALT (10-60) IU/L Alkaline Phosphatase (42-121) IU/L Creatine Kinase 66 (26-174) IU/L Creatine Kinase Index 3.0 H (0-2.4) % CK-MB (CK-2) 2.00 (0.4-4.7) ng/mL Troponin I 0.02 (0.00-0.02) ng/ml B-Natriuretic Peptide (0-100) pg/ml Total Protein (6.7-8.2) g/dl Albumin (3.2-5.5) g/dl Globulin Albumin/Globulin Ratio Urine Color (YELLOW) Urine Appearance (CLEAR) Urine pH (5.0-9.0) Ur Specific [place] (1.005-1.030) Urine Protein (NEGATIVE) Urine Glucose (UA) (NEGATIVE) Urine Ketones (NEGATIVE) Urine Occult Blood (NEGATIVE) Urine Nitrite (NEGATIVE) Urine Bilirubin (NEGATIVE) Urine Urobilinogen (0.2-1.0) mg/dL Ur Leukocyte Esterase (NEGATIVE) Urine RBC /HPF Urine WBC (0-5/HPF) /HPF Ur Epithelial Cells /HPF Urine Bacteria (0-FEW/HPF) /HPF Meds: Medications Discontinued Medications Generic Name Dose Route Start Last Admin Trade Name Freq PRN Reason Stop Dose Admin Albuterol/Ipratropium 3 ml 06/07/17 17:31 06/07/17 17:48 Duoneb 3.0-0.5 Mg/3 Ml NEB 06/07/17 17:32 3 ml ONETIME ONE Administration Furosemide 40 mg 06/07/17 19:31 Lasix IVPUSH 06/07/17 19:32 NOW ONE - Re-Assessments/Exams Free Text/Narrative Re-Assessment/Exam: 06/07/17 18:48 Transferred care to Jose Roberto Mathews at change of shift. Departure - Departure Disposition: Home, Self-Care 01 Clinical Impression: CHF exacerbation Qualifiers: Congestive heart failure type: unspecified congestive heart failure type Qualified Code(s): I50.9 - Heart failure, unspecified Instructions: Heart Failure, [id number] Care Plan Goals: The patient was advised of the examination, lab and CT results. The patient was given a nebulizer treatment and a dose of IV Lasix while in the ED. If the patient has any additional symptoms or concerns, the patient was encouraged to follow-up with his primary care facility or return to the emergency department. <Jose Roberto Mathews M - Last Filed: 06/07/17 19:40> Course - Re-Assessments/Exams Free Text/Narrative Re-Assessment/Exam: 06/07/17 19:33 Patient care was taken over at shift change. Assessment and results were reviewed. CT results demonstrated no obvious acute changes, but there are some areas with age indeterminate ischemic changes. 06/07/17 19:36 Departure - Departure Time of Disposition: 19:34 Condition: Fair I have read and agree with the documentation that has been completed regarding this visit. By signing this record, I attest that the documentation was completed in my physical presence and is an accurate record of the encounter.
[2017-06-07] MEDS ORDERED: Furosemide 40 MG/4 ML VIAL IVPUSH ONE (19:31)
[2017-06-07 20:19] VITALS: BP 145/76
--- NOTE | 2017-06-08 22:21 | EKG ---
06/07/2017 - RAFAEL POON - This 12-lead EKG shows atrial fibrillation with a ventricular rate of 78. Normal axis. Prolonged QT interval. No acute ST-segment or T-wave changes. Poor baseline in several of the precordial leads. [facility] /[id number]
== END 2017-06-07 19:55 | disposition home or self-care (01) ==
LOC: DL.ED 17:07
DX: I50.9 Heart failure, unspecified (principal); H54.7 Unspecified visual loss; I48.91 Unspecified atrial fibrillation; I25.10 Atherosclerotic heart disease of native coronary artery without angina pectoris; I25.2 Old myocardial infarction; K21.9 Gastro-esophageal reflux disease without esophagitis; F32.9 Major depressive disorder, single episode, unspecified; E66.9 Obesity, unspecified; E03.9 Hypothyroidism, unspecified; Z95.1 Presence of aortocoronary bypass graft; Z87.891 Personal history of nicotine dependence; Z79.899 Other long term (current) drug therapy; Z86.73 Personal history of transient ischemic attack (TIA), and cerebral infarction without residual deficits
CPT/HCPCS: 36415; 70450; 71010; 80053; 81001; 82550; 82553; 83605; 83880; 84484; 85025; 87040; 93005; 96374; 99285; J1940; 93010

== ENCOUNTER 2017-10-30 09:31 | Inpatient (IN) | payer MEDICARE, OTHER ==
--- NOTE | 2017-10-30 09:40 | EDM.PDOC ---
ED HPI GENERAL MEDICAL PROBLEM - General Chief Complaint: Respiratory Problem Stated Complaint: Shortness of breath Time Seen by Provider: 10/30/17 09:39 Source of Information: Reports: Patient, Family, Old Records, RN, RN Notes Reviewed History Limitations: Reports: No Limitations - History of Present Illness INITIAL COMMENTS - FREE TEXT/NARRATIVE: Arrives from home by POV with c/o progressively worsening shortness of breath for a couple of weeks. Pt and his report increasing weight, and increasing lower extremity edema. Pt denies orthopnea, chest pain, fever, chills, or palpitations. Three days ago pt's increased his Lasix from 40mg BID to 60mg BID. He has not seen his doctor for several months. 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(s) - Related Data Allergies Allergy/AdvReac Type Severity Reaction Status Date / Time No Known Allergies Allergy Verified 01/25/17 08:32 Home Meds: Home Meds Famotidine [Pepcid] 40 mg PO DAILY PRN 10/31/14 [History] Citalopram [Celexa] 20 mg PO DAILY 07/19/15 [History] Sennosides/Docusate Sodium [Stool Softener] 1 tab PO DAILY PRN 07/19/15 [History ] Albuterol [Ventolin HFA] 2 puff INH Q6H PRN 11/20/16 [History] Levothyroxine [Synthroid] 100 mcg PO DAILY 11/20/16 [History] Lisinopril 5 mg PO DAILY 11/20/16 [History] Methocarbamol [Robaxin] 250 mg PO Q6H PRN 01/25/17 [History] Metoprolol Succinate [Toprol XL] 100 mg PO DAILY 01/25/17 [History] Glimepiride [Amaryl] 1 mg PO DAILY 06/07/17 [History] Rivaroxaban [Xarelto] 20 mg PO DAILY 06/07/17 [History] Rosuvastatin Calcium 2.5 mg PO Q48H 06/07/17 [History] Furosemide [Lasix] 60 mg PO BIDDIURETIC 10/30/17 [History] Past Medical History HEENT History: Reports: Cataract, Hard of Hearing, Impaired Vision Other HEENT History: wears glasses for reading only Cardiovascular History: Reports: Afib, Aneurysm, CAD, Heart Failure, Hypertension, SD, SOB on Exertion Respiratory History: Reports: SOB Gastrointestinal History: Reports: Chronic Constipation, GERD Genitourinary History: Reports: None Musculoskeletal History: Reports: Back Pain, Chronic, Other (See Below) Other Musculoskeletal History: right hip pain, chronic Neurological History: Reports: CVA Psychiatric History: Reports: Depression Endocrine/Metabolic History: Reports: Hypothyroidism, Obesity/BMI 30+ Hematologic History: Reports: Anticoagulation Therapy Immunologic History: Reports: None Oncologic (Cancer) History: Reports: None Dermatologic History: Reports: None - Infectious Disease History Infectious Disease History: Reports: Chicken Pox, Measles, Mumps - Past Surgical History HEENT Surgical History: Reports: Cataract Surgery Cardiovascular Surgical History: Reports: Aneurysm, Cardiac Ablation, Coronary Artery Bypass, Other (See Below) GI Surgical History: Reports: Colonoscopy, Other (See Below) Social & Family History - Family History Family Medical History: Noncontributory Neurological: Reports: CVA - Tobacco Use Smoking Status *Q: Former Smoker Years of Tobacco use: 20 Packs/Tins Daily: 1 Used Tobacco, but Quit: Yes Month Tobacco Last Used: 1979 Second Hand Smoke Exposure: No - Caffeine Use Caffeine Use: Reports: Coffee - Alcohol Use Days Per Week of Alcohol Use: 7 Number of Drinks Per Day: 2 Total Drinks Per Week: 14 - Recreational Drug Use Recreational Drug Use: No - Living Situation & Occupation Living situation: Reports: , with Spouse Occupation: Retired ED ROS GENERAL - Review of Systems Review Of Systems: ROS reveals no pertinent complaints other than HPI. ED EXAM, GENERAL - Physical Exam Exam: See Below Exam Limited By: No Limitations General Appearance: Alert, No Apparent Distress, Obese Nose: Normal Inspection Throat/Mouth: Normal Inspection Head: Atraumatic, Normocephalic Neck: Normal Inspection, Supple, Non-Tender, Full Range of Motion Respiratory/Chest: No Respiratory Distress, No Accessory Muscle Use, Chest Non- Tender, Decreased Breath Sounds (Left), Crackles, Rales Cardiovascular: Irregularly Irregular, Other (3+ pitting edema to B/L distal thighs) GI/Abdominal: Normal Bowel Sounds, Soft, Non-Tender, No Distention (Male) Exam: Deferred Rectal (Males) Exam: Deferred Back Exam: Normal Inspection Extremities: Normal Range of Motion, Non-Tender Neurological: Alert, Oriented, CN II-XII Intact, Normal Cognition, No Motor/ Sensory Deficits Psychiatric: Normal Affect, Normal Mood Skin Exam: Warm, Dry, Intact EKG INTERPRETATION EKG Date: 10/30/17 Time: 10:01 Rhythm: A-Fib Rate (Beats/Min): 85 [place]: Normal P-Wave: Absent QRS: Other (non-specific IVCD) ST-T: Normal QT: Normal Comparison: No Change EKG Interpretation Comments: No acute ischemic changes. Course - Vital Signs Last Recorded V/S: Last Vital Signs Temp 36.6 C 10/30/17 09:45 Pulse 94 10/30/17 09:45 Resp 20 10/30/17 09:45 BP 140/62 10/30/17 09:45 Pulse Ox 87 L 10/30/17 09:45 - Orders/Labs/Meds Orders: Active Orders 24 hr Category Date Time Status EKG 12 Lead [EKG Documentation Completion] [RC] STAT Care 10/30/17 09:51 Active Peripheral IV Care [RC] . DIRECTED Care 10/30/17 09:53 Active Sodium Chloride 0.9% [Saline Flush] Med 10/30/17 09:51 Active 10 ml FLUSH ASDIRECTED PRN Peripheral IV Insertion Adult [OM.PC] Stat Oth 10/30/17 09:51 Ordered Medication Orders Sodium Chloride (Saline Flush) 10 ml FLUSH ASDIRECTED PRN PRN Reason: Keep Vein Open Last Admin: 10/30/17 10:37 Dose: 10 ml Labs: Laboratory Tests 10/30/17 10/30/17 Range/Units 10:05 10:05 WBC 7.3 (5.0-10.0) 10^3/uL RBC 3.86 L (4.6-6.2) 10^6/uL Hgb 10.9 L (14.0-18.0) g/dL Hct 35.9 L (40.0-54.0) % MCV 93.0 D (80-100) fL MCH 28.2 (27.0-34.0) pg MCHC 30.4 L (33.0-35.0) g/dL Plt Count 210 (150-450) 10^3/uL Neut % (Auto) 69.5 (42.2-75.2) % Lymph % (Auto) 15.0 L (20.5-50.1) % [place] % (Auto) 10.8 H (2-8) % Eos % (Auto) 4.2 H (1.0-3.0) % Baso % (Auto) 0.5 (0.0-1.0) % Sodium 140 (135-145) mmol/L Potassium 3.7 (3.6-5.0) mmol/L Chloride 103 (101-111) mmol/L Carbon Dioxide 27.0 (21.0-31.0) mmol/L Anion Gap 13.7 BUN 20 H (7-18) mg/dL Creatinine 1.4 H (0.6-1.3) mg/dL Est Cr Clr Drug Dosing 42.08 mL/min Estimated GFR (MDRD) 49 BUN/Creatinine Ratio 14.28 Glucose 167 H (74-105) mg/dL Calcium 8.4 (8.4-10.2) mg/dl Total Bilirubin 1.6 H (0.2-1.0) mg/dL AST 22 (10-42) IU/L ALT 14 (10-60) IU/L Alkaline Phosphatase 86 (42-121) IU/L Troponin I < 0.02 (0.00-0.02) ng/ml B-Natriuretic Peptide 251 H (0-100) pg/ml Total Protein 6.9 (6.7-8.2) g/dl Albumin 3.8 (3.2-5.5) g/dl Globulin 3.1 Albumin/Globulin Ratio 1.23 Meds: Medications Generic Name Dose Route Start Last Admin Trade Name Freq PRN Reason Stop Dose Admin Sodium Chloride 10 ml 10/30/17 09:51 10/30/17 10:37 Saline Flush FLUSH 10 ml ASDIRECTED PRN Administration Keep Vein Open Discontinued Medications Generic Name Dose Route Start Last Admin Trade Name Freq PRN Reason Stop Dose Admin Furosemide 40 mg 10/30/17 09:54 10/30/17 10:35 Lasix IVPUSH 10/30/17 09:55 40 mg NOW ONE Administration - Radiology Interpretation Free Text/Narrative:: CXR: decompensated CHF compared to prior studies with small left pleural effusion per Rad. report. - Re-Assessments/Exams Free Text/Narrative Re-Assessment/Exam: 10/30/17 10:39 I explained the exam findings, results of all diagnostic tests, chest xray report, EKG findings, working diagnosis, and any potential or additionally considered diagnoses, treatment/disposition plan for admission to the hospitalist to the pt and his . They have no further questions and are in agreement with the plan for admission. Departure - Departure Time of Disposition: 10:37 (admit to Dr. Aguilar) Disposition: Admitted As Inpatient 67 Condition: Fair Clinical Impression: Pleural effusion due to congestive heart failure, Hypoxia, Chronic atrial fibrillation CHF exacerbation Qualifiers: Congestive heart failure type: unspecified congestive heart failure type Qualified Code(s): I50.9 - Heart failure, unspecified - Discharge Information Forms: ED Department Discharge - My Orders Last 24 Hours: My Active Orders 10/30/17 09:51 EKG 12 Lead [EKG Documentation Completion] [RC] STAT Sodium Chloride 0.9% [Saline Flush] 10 ml FLUSH ASDIRECTED PRN Peripheral IV Insertion Adult [OM.PC] Stat 10/30/17 09:53 Peripheral IV Care [RC] . DIRECTED - Assessment/Plan Last 24 Hours: My Active Orders 10/30/17 09:51 EKG 12 Lead [EKG Documentation Completion] [RC] STAT Sodium Chloride 0.9% [Saline Flush] 10 ml FLUSH ASDIRECTED PRN Peripheral IV Insertion Adult [OM.PC] Stat 10/30/17 09:53 Peripheral IV Care [RC] . DIRECTED
[2017-10-30] MEDS ORDERED: Furosemide 40 MG/4 ML VIAL IVPUSH ONE (09:54)
--- NOTE | 2017-10-30 10:25 | CR ---
Clinical history: 81-year-old male peripheral edema, dyspnea and cough. Interpretation: Abnormal. Relative increase venous congestion with cephalization and dependent new subpulmonic pleural effusion s since to January 2017 exam i.e. interval cardiovascular decompensation or CHF. (Sternotomy wires and chronic borderline cardiomegaly) No new lung mass, hilar lymphadenopathy or focal lobar pneumonia. No atelectasis/collapse. CONCLUSION: CHF.
[2017-10-30 10:32] LABS: CHLORIDE,CL 103 mmol/L (101-111); SODIUM,NA 140 mmol/L (135-145)
[2017-10-30] MEDS: Sodium Chloride 0.9% 10 ML Syringe FLUSH PRN (10:37)
[2017-10-30] MEDS ORDERED: Acetaminophen 325 MG Tab PO PRN (17:07)
[2017-10-30] MEDS ORDERED: Bisacodyl 10 MG Supp RECTAL PRN (17:07)
[2017-10-30] MEDS ORDERED: Magnesium Hydroxide 400 MG/5 ML Susp 30 ML Cup PO PRN (17:07)
[2017-10-30] MEDS ORDERED: Zolpidem 5 MG Tab PO PRN (17:19)
[2017-10-30] MEDS: Albuterol 0.083% 2.5 MG/3 ML Neb Soln NEB SCH ×2 (19:17→23:08)
[2017-10-30] MEDS ORDERED: Furosemide 20 MG/2 ML VIAL IVPUSH ONE (19:31)
[2017-10-31] MEDS: Albuterol 0.083% 2.5 MG/3 ML Neb Soln NEB SCH ×7 (03:04→22:53)
[2017-10-31] MEDS ORDERED: Potassium Chloride 10 MEQ Tab.ER PO ONE (08:19)
[2017-10-31] MEDS ORDERED: Furosemide 40 MG/4 ML VIAL IVPUSH SCH (09:00)
[2017-10-31] MEDS: Metoprolol Succinate 50 MG Tab.ER PO SCH (09:53)
[2017-10-31] MEDS: Glimepiride 2 MG Tab PO SCH (09:53)
[2017-10-31] MEDS: Citalopram 20 MG Tab PO SCH (09:54)
[2017-10-31] MEDS: Levothyroxine 100 MCG Tab PO SCH (09:54)
[2017-10-31] MEDS: Lisinopril 5 MG Tab PO SCH (09:54)
[2017-10-31] MEDS: Rivaroxaban 10 MG Tab PO SCH (09:54)
[2017-10-31] MEDS: Furosemide 40 MG/4 ML VIAL IVPUSH SCH (15:09)
[2017-10-31] MEDS: Sodium Chloride 0.9% 10 ML Syringe FLUSH PRN ×2 (15:09→20:05)
[2017-10-31] MEDS: Potassium Chloride 10 MEQ Tab.ER PO SCH (17:46)
--- NOTE | 2017-10-31 21:29 | EKG ---
10/30/2017 - RAFAEL POON - This 12-lead EKG shows atrial fibrillation with a ventricular rate of 85. Normal axis. No acute ST-T wave changes. There is a wandering baseline in some of the limb leads and precordial leads. [facility] /[id number]
[2017-11-01] MEDS: Albuterol 0.083% 2.5 MG/3 ML Neb Soln NEB SCH ×4 (03:03→15:21)
[2017-11-01 07:44] VITALS: BP 154/89
[2017-11-01] MEDS: Potassium Chloride 10 MEQ Tab.ER PO SCH (08:23)
[2017-11-01] MEDS: Levothyroxine 100 MCG Tab PO SCH (08:23)
[2017-11-01] MEDS: Rivaroxaban 10 MG Tab PO SCH (08:23)
[2017-11-01] MEDS: Glimepiride 2 MG Tab PO SCH (08:24)
[2017-11-01] MEDS: Citalopram 20 MG Tab PO SCH (08:24)
[2017-11-01] MEDS: Metoprolol Succinate 50 MG Tab.ER PO SCH (08:24)
[2017-11-01] MEDS: Lisinopril 5 MG Tab PO SCH (08:24)
[2017-11-01] MEDS: Furosemide 40 MG/4 ML VIAL IVPUSH SCH ×2 (08:24→14:42)
[2017-11-01] MEDS: Sodium Chloride 0.9% 10 ML Syringe FLUSH PRN (08:30)
[2017-11-01] MEDS ORDERED: Furosemide 40 MG Tab PO ONE (14:30)
--- NOTE | 2017-11-06 08:30 | PN ---
DATE: 10/31/2017 SUBJECTIVE: Mr. Alvarenga is an 81-year-old gentleman, who was admitted yesterday for exacerbation of acute on chronic diastolic congestive heart failure. He presented with a history of increasing dyspnea and lower extremity edema. He is found to have increased weight, significant lower extremity edema, hypoxia, and chest x-ray findings consistent with CHF. He was started on IV Lasix yesterday. Review of his intake and output this morning showed that he had a vigorous response to the IV Lasix with an output of approximately 2600 mL between the time of admission and 7:00 a.m. this morning. We will continue with IV Lasix today. Review of his clinical data shows that he remains hemodynamically stable. He is tolerating his diet. LABORATORY DATA: A repeat lab work this morning show potassium of 3.5, creatinine 1.2, with improved a GFR of 58. Magnesium was normal at 2.1. PHYSICAL EXAMINATION: General: Mr and Mrs. Alvarenga are in the room. He is in good spirits. He states that he feels much better. He slept well. Legs are more comfortable. He feels less short of breath. He denied chest pain or palpitations. No other new symptoms of concern. Vital Signs: Blood pressure was 155/78, pulse 87 and irregular, respiratory rate 20, oxygen saturation 96% on 2 L, and he was afebrile. His weight is down 5 pounds since admission. Weight this morning is 255 pounds 3 ounces compared to 260 pounds 3 ounces yesterday. HEENT: Showed no JVDs or bruits. ENT was clear. Chest: Showed improved bilateral air movement. Heart: Showed irregular rate and rhythm. Abdomen: Obese, soft, and benign. Extremities: Showed marked improvement with less edema. The area around the knees both above and below are much softer than yesterday. Occupational therapy has been in and has placed circular compression dressings on both legs. He states that his legs feel much more comfortable. Both . Mrs. Alvarenga are well prepared to continue this at home. Mr. Alvarenga felt well enough to want to go home. We asked him to remain in the hospital at least today as we could continue with diuresis and he was agreeable to this. IMPRESSION: An 81-year-old gentleman presents with exacerbation of chronic diastolic congestive heart failure with marked improvement overnight with the use of IV furosemide. PLAN: 1. We will continue the present management. He will receive IV Lasix again both this morning and this afternoon. He was given supplemental potassium today, and will continue him on supplemental potassium. 2. Legs have been wrapped in circular compression dressings and these will be continued at home. Mrs. Alvarenga is able to do this and will continue it at home for him. 3. Shortness of breath, it is markedly improved with the diuresis. 4. If he continues to do well, plan for discharge to home in the morning. [facility] /[id number]
--- NOTE | 2017-11-06 08:36 | PN ---
DATE: 11/01/2017 SUBJECTIVE: Mr. Alvarenga will be discharged to home today. He continues to improve. He is hemodynamically stable. He is feeling much better. He has had a vigorous urine output since admission and diuresis was started. He has had a vigorous diuresis of almost 6 L of urine since admission. He was noted this morning to be somewhat hypoxic on room air, and we asked for an exercise desaturation study to be performed by Respiratory Therapy. At room air on rest, oxygen saturation was 90% with a heart rate of 76. As soon as he started to exercise, his saturations quickly went to 88% at half a minute, and 85% at 2 minutes of exercise. He was then placed back on 2 L of nasal oxygen, and half minute later had increased to 89%, and by 4 minutes of exercise was back to 94% with a heart rate of 84. One minute postexercise oxygen saturation was 95% on 2 L after walking a distance of 200 feet. We have ordered home oxygen therapy both portable and a home concentrator. These orders were sent to your home via [facility]. A [id number] note was placed in his Epic chart and the walking desaturation study was faxed to [facility]. Mr. Alvarenga states that in the past, he has been on oxygen therapy, but has not needed for a while and equipment was sent back to [facility]. IMPRESSION: Hypoxia, improved on supplemental oxygen. PLAN: Following a walking desaturation study, orders were sent for supplemental home oxygen therapy. [facility] /[id number]
--- NOTE | 2017-11-06 08:45 | HP ---
REASON FOR ADMISSION: Dyspnea and increasing lower extremity edema. HISTORY OF PRESENT ILLNESS: Mr. Alvarenga is an 81-year-old gentleman who presented to the ER with the main complaint of increasing dyspnea. He states that he felt well until about 3 weeks ago. For the last couple of days, he has noted increasing shortness of breath. He has orthopnea. He denies any chest pain. His weight has gone up about 20 pounds. He also says that in the last 7 to 10 days, his feet and legs have become progressively more swollen. He does admit to missing occasional medication. In the ER, he was also noted to be hypoxic, requiring supplemental oxygen. He was admitted for further evaluation and management. PAST MEDICAL HISTORY: Chronic atrial fibrillation, currently on Xarelto. 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 PAST SURGICAL HISTORY: Coronary artery bypass and AAA repair. SOCIAL HISTORY: He is . He is retired. He is a former smoker of cigarettes and smokeless tobacco, quit in 1987. Occasional social alcohol. REVIEW OF SYSTEMS: He said these symptoms have been going on for "months," but he felt well until about 3 weeks ago. He does admit to occasionally missing some of his medications. Shortness of breath has become worse over the last two days and was worse this morning, which is what brought him to the hospital. He does have orthopnea and sleeps sitting up. He denies any chest pain or palpitations. Appetite is good. Weight has gone up from about 240 pounds to 256 pounds. He said he weighed 243 pounds in November at the hospitalization and was 263 pounds at home this week. He has history of atrial fibrillation and underwent ablation in [place], and he was on amiodarone. He was in normal sinus rhythm for 3 to 4 years, but during this admission, it is noted that he has returned to atrial fibrillation. He states for the last 7 to 10 days, his legs and feet have been increasingly swollen. He is a diabetic, and his blood sugars have been unremarkable. No cough, fever, or chills. No blood by mouth or rectum. No change in bowel or bladder habits. No recent falls or injuries. No recent illnesses or use of antibiotics. PHYSICAL EXAMINATION: General: He is a pleasant gentleman accompanied by his . He was in no acute distress. He was sitting with his legs down over the edge of the bed, and we had to remind him multiple times to try to keep his legs elevated. Vital Signs: Blood pressure was 136/66 on the left, 154/75 on the right; pulse 85 and irregular; respiratory rate 22 and unlabored; oxygen saturation had improved to 97% on 2 L from 87% in the ER; and temperature 98.2. Height 5 feet 9 inches, weight 260 pounds 3 ounces. HEENT: Unremarkable. ENT was clear. Neck: No JVDs or bruits. Chest: Showed diminished bilateral breath sounds without wheezes. Heart: Showed irregular rate and rhythm. Abdomen: Obese, soft. Extremities: Showed marked lower extremity edema. Skin: Taut up to the level of slightly above the knees. Neurological: He is intact. LABORATORY DATA: CBC showed hemoglobin and hematocrit of 11 and 36, white count and platelets were unremarkable. Chemistry showed normal electrolytes on day of admission. BUN and creatinine were 20 and 1.4 with a GFR of 49 compared to 20 and 1.4 with a GFR of 58 when performed in March at clinic. Nonfasting blood sugar was 167. LFTs were unremarkable. Troponin was negative at less than 0.02, and BNP was 251. A two- view chest x-ray taken in the ER showed increased venous congestion with cephalization and a dependent subpulmonic pleural effusion. The changes were consistent with CHF. There was no infiltrate seen. A 12-lead EKG showed atrial fibrillation with a ventricular rate of 85 and no acute changes. In the emergency room, he received 40 mg of IV Lasix and was admitted to the floor. IMPRESSION: An 81-year-old gentleman with diastolic congestive heart failure. He now presents with increased dyspnea, increasing lower extremity edema, and hypoxia. He is admitted for further management. PLAN: 1. We will continue his usual medications. 2. He will receive daily IV Lasix. 3. We will monitor his electrolytes. 4. Monitor daily weights. 5. Repeat electrolytes were ordered; potassium, magnesium, and creatinine for tomorrow. 6. We will order an evaluation by Occupational Therapy for the placement of compression wraps. Mrs. Alvarenga is willing to do this, and she has done it before in the past, and we will have Therapy work with her. 7. For VTE prophylaxis, he will continue on his Xarelto. Heparin was not added because he is on the Xarelto. He also has a history of significant epistaxis, secondary to anticoagulation. 8. He will continue on supplemental oxygen for hypoxia, and we will see how he does during the course of the admission. He has apparently been on home oxygen in the past but has not used this for some time. CODE STATUS: Full code. CONDITION AT THE TIME OF ADMISSION: Hemodynamically stable. [facility] /[id number]
--- NOTE | 2017-11-07 00:51 | DISCH ---
DISCHARGE DIAGNOSES: 1. Exacerbation of chronic diastolic heart failure. 2. Significant bilateral lower extremity edema, improved with diuresis and compression wraps. 3. Noted to be hypoxic on room air. A walking desaturation study showed hypoxia with activity. 4. Home oxygen therapy prescribed. 5. Improved bilateral lower extremity edema, we will continue with compression wraps. 6. Remainder of past medical history as documented in the admission history and physical. 7. Atrial fibrillation, chronic with controlled ventricular rate. BRIEF HISTORY OF PRESENT ILLNESS: Mr. Alvarenga is an 81-year-old gentleman with a known history of diastolic congestive heart failure. He presented to the emergency room with increasing dyspnea and lower extremity edema. Chest x-ray showed findings consistent with congestive heart failure. He was admitted for further management of his CHF. PERTINENT LABS AND X-RAYS: CBC showed a normocytic anemia with a hemoglobin and hematocrit of 11 and 36. White count and platelets were normal. Chemistries showed normal electrolytes on the day of admission and a potassium of 3.5 on followup the following day. BUN and creatinine were 20 and 1.4 at admission with a GFR of 49. Repeat creatinine during the admission was 1.2 with a GFR of 58. Nonfasting blood sugar was 167. Magnesium was normal at 2.1. LFTs were unremarkable. Troponin was negative at less than 0.02 and BNP was only mildly elevated at 251. Two-view chest x-ray taken at the time of admission showed changes consistent with congestive heart failure with increased venous congestion with cephalization and new subpulmonic pleural effusions compared to January 2017 films. A 12-lead EKG showed atrial fibrillation with a ventricular rate of [address]-T wave changes. HOSPITAL COURSE: Mr. Alvarenga was admitted as an acute inpatient. He was continued on his usual medications. He was started on a course of IV furosemide on a daily and b.i.d. basis. In response, he had a vigorous urine output of approximately 6 L. His dyspnea was markedly improved and his bilateral lower extremity edema was much improved as well. We requested a consultation from Occupational Therapy for circular compression wraps. These were placed. Mr. Alvarenga has used them in the past and Mrs. Alvarenga was willing to continue with these at home as she has done that before for him. VIANEY hose is probably impractical as his legs are heavy and quite edematous and would be difficult to place and maintain. His weight was followed during the admission. His admission weight was 260 pounds 3.2 ounces, and his discharge weight was 253 pounds 3.2 ounces (-7 pounds). Review of his clinical data showed stable vital signs throughout the admission, although he was noted to be hypoxic. He had a vigorous urine output. He had a good appetite, tolerating his diet. He was voiding. On the day of discharge, he was noted to be somewhat hypoxic on room air and the hypoxia increased with activity. An exercise desaturation study was performed. He was 90% on room air at rest and at 0.5 minutes of exercise, he desaturated down to 88% and at 2.0 minutes, he desaturated to 85%. He was then placed on supplemental oxygen and at 2.5 minutes, oxygen saturation improved to 88% and at 4 minutes of exercise, he was 94% on 3 L. one minute post exercise, he was 95% on 2 L. Heart rate remained in the 80s throughout the study and was a controlled atrial fibrillation. He walked a total of 200 feet. Orders were sent to [facility] for supplemental home oxygen therapy. Both portable oxygen and a new concentrator were ordered. Mr. Alvarenga had been on oxygen previously and this was discontinued. PLAN: Mr. Alvarenga will be discharged to home in improved and stable condition. A Followup appointment was made for him with Dr. Maritza Castle for February 07. Followup labs have been ordered including hemoglobin, hematocrit, and BMP. DISCHARGE MEDICATIONS: Reviewed. No changes were made. He will continue on: 1. Furosemide 40 mg twice a day. 2. Citalopram 20 mg daily. 3. Senna-S one tab daily p.r.n. 4. Xarelto 20 mg daily. 5. Levothyroxine 100 mcg daily. 6. Glimepiride 1 mg daily. 7. Metoprolol succinate 100 mg daily. 8. Lisinopril 5 mg daily. 9. Zolpidem 5 mg at bedtime as needed. ALLERGIES: He has no known allergies. He will continue on home oxygen therapy at 2 L/minute. CONDITION AT THE TIME OF DISCHARGE: Much improved and stable. CODE STATUS: During this admission was full code. [facility] /[id number]
== END 2017-11-01 17:00 | disposition home or self-care (01) | DRG 292 ==
LOC: DL.ED 09:31 → UNDOADMIN 11:00 → DL.MS 11:00
PROVIDERS: ADMIT Internal Medicine; ATTEND Internal Medicine
DX: I11.0 Hypertensive heart disease with heart failure (principal); I50.9 Heart failure, unspecified; I25.810 Atherosclerosis of coronary artery bypass graft(s) without angina pectoris; I50.33 Acute on chronic diastolic (congestive) heart failure; Z87.891 Personal history of nicotine dependence; R09.02 Hypoxemia; I48.2 Chronic atrial fibrillation; I25.2 Old myocardial infarction; K21.9 Gastro-esophageal reflux disease without esophagitis; E03.9 Hypothyroidism, unspecified; E66.9 Obesity, unspecified; F32.9 Major depressive disorder, single episode, unspecified; G89.29 Other chronic pain; Z86.73 Personal history of transient ischemic attack (TIA), and cerebral infarction without residual deficits; H91.90 Unspecified hearing loss, unspecified ear; H54.7 Unspecified visual loss; Z79.01 Long term (current) use of anticoagulants; Z79.899 Other long term (current) drug therapy; Z68.39 Body mass index [BMI] 39.0-39.9, adult
CPT/HCPCS: 36415; 71046; 80053; 83880; 84484; 85025; 93005; 93010; 96374; 99285; J1940; J7050; 82565; 83735; 84132; 94640; 97140-GO; 97165-GO; A9270-GY; J7620-GY

== ENCOUNTER 2017-12-23 11:23 | Inpatient (IN) | payer MEDICARE, OTHER ==
[2017-12-23] MEDS ORDERED: Albuterol/Ipratropium 3.0-0.5 MG/3 ML Neb Soln NEB ONE (11:37)
--- NOTE | 2017-12-23 12:17 | EDM.PDOC ---
ED HPI GENERAL MEDICAL PROBLEM - General Chief Complaint: Respiratory Problem Stated Complaint: by ambulance Time Seen by Provider: 12/23/17 11:35 Source of Information: Reports: Patient, EMS, EMS Notes Reviewed, Old Records, RN, RN Notes Reviewed History Limitations: Reports: No Limitations - History of Present Illness INITIAL COMMENTS - FREE TEXT/NARRATIVE: Pt presents to the ER per [facility]. EMS states he lives at home with his , who is currently ill with influenza type symptoms. Patient was discharged from the hospital on 11/01/17 after a stay for CHF. Pt states he really hasn't felt any better since being discharged from the hospital. He states he began coughing more and feeling more weak and tired out. He states he has increasingly gotten more SOB. Pt states last time he took his medications was this morning, but he has not taken them for a few days prior because he forgot as he was not feeling well. Pt admits to chills, productive cough with brown sputum, SOB. Denies chest pain, fever, N/V/D. Onset: Gradual Onset Date: 12/20/17 - Related Data Allergies Allergy/AdvReac Type Severity Reaction Status Date / Time No Known Allergies Allergy Verified 12/23/17 11:44 Home Meds: Home Meds Citalopram [Celexa] 20 mg PO DAILY 07/19/15 [History] Sennosides/Docusate Sodium [Stool Softener] 1 tab PO DAILY PRN 07/19/15 [History ] Albuterol [Ventolin HFA] 2 puff INH Q6H PRN 11/20/16 [History] Levothyroxine [Synthroid] 100 mcg PO DAILY 11/20/16 [History] Lisinopril 5 mg PO DAILY 11/20/16 [History] Metoprolol Succinate [Toprol XL] 100 mg PO DAILY 01/25/17 [History] Glimepiride [Amaryl] 1 mg PO DAILY 06/07/17 [History] Rivaroxaban [Xarelto] 20 mg PO DAILY 06/07/17 [History] Furosemide [Lasix] 40 mg PO BID 10/30/17 [History] Zolpidem Tartrate [Ambien] 5 mg PO BEDTIME PRN 10/30/17 [History] Past Medical History HEENT History: Reports: Cataract, Hard of Hearing, Impaired Vision Other HEENT History: wears glasses for reading only Cardiovascular History: Reports: Afib, Aneurysm, CAD, Heart Failure, Hypertension, [place], SOB on Exertion Respiratory History: Reports: SOB, Other (See Below) Other Respiratory History: wears oxygen at home Gastrointestinal History: Reports: Chronic Constipation, GERD Genitourinary History: Reports: Chronic Renal Insuffiency, Other (See Below) Other Genitourinary History: hx renal cyst Musculoskeletal History: Reports: Back Pain, Chronic, Other (See Below) Other Musculoskeletal History: right hip pain, chronic Neurological History: Reports: CVA Psychiatric History: Reports: Depression Endocrine/Metabolic History: Reports: Diabetes, Type II, Hypothyroidism, Obesity /BMI 30+ Hematologic History: Reports: Anticoagulation Therapy Immunologic History: Reports: None Oncologic (Cancer) History: Reports: None Dermatologic History: Reports: None - Infectious Disease History Infectious Disease History: Reports: C-Difficile, Measles, Mumps - Past Surgical History Head Surgeries/Procedures: Reports: None HEENT Surgical History: Reports: Cataract Surgery Cardiovascular Surgical History: Reports: Aneurysm, Cardiac Ablation, Coronary Artery Bypass GI Surgical History: Reports: Colonoscopy, Other (See Below) Social & Family History - Family History Family Medical History: Noncontributory Neurological: Reports: CVA - Tobacco Use Smoking Status *Q: Former Smoker Years of Tobacco use: 20 Packs/Tins Daily: 1 Used Tobacco, but Quit: Yes Month Tobacco Last Used: unknown Second Hand Smoke Exposure: No - Caffeine Use Caffeine Use: Reports: Coffee - Alcohol Use Days Per Week of Alcohol Use: 7 Number of Drinks Per Day: 2 Total Drinks Per Week: 14 - Recreational Drug Use Recreational Drug Use: No - Living Situation & Occupation Living situation: Reports: , with Spouse Occupation: Retired ED ROS GENERAL - Review of Systems Review Of Systems: ROS reveals no pertinent complaints other than HPI. ED EXAM, GENERAL - Physical Exam Exam: See Below Exam Limited By: No Limitations General Appearance: Alert, WD/WN, Moderate Distress Eye Exam: Bilateral Eye: EOMI, Normal Inspection, PERRL Ears: Normal External Exam, Hearing Grossly Normal Nose: Normal Inspection Throat/Mouth: No Airway Compromise, Other (Mouth dry, mouth breathing) Head: Atraumatic, Normocephalic Neck: Normal Inspection, Supple, Non-Tender, Limited Range of Motion Respiratory/Chest: Respiratory Distress, Decreased Breath Sounds, Crackles, Rales, Wheezing Cardiovascular: Normal Peripheral Pulses, Irregularly Irregular. No: No Edema Peripheral Pulses: 1+: Radial (L), Radial (R), Dorsalis Pedis (L), Dorsalis Pedis (R) GI/Abdominal: Normal Bowel Sounds, Soft, Non-Tender, No Organomegaly, No Distention, No Abnormal Bruit, No Mass (Male) Exam: Deferred Rectal (Males) Exam: Deferred Back Exam: Normal Inspection, Decreased Range of Motion Extremities: Pedal Edema (+3 pedal/lower extrem bilat), Slow Capillary Refill, Limited Range of Motion Neurological: Alert, Oriented, Normal Cognition, No Motor/Sensory Deficits Psychiatric: Normal Affect, Normal Mood Skin Exam: Dry, Intact, Normal Color, No Rash, Cool Lymphatic: No Adenopathy EKG INTERPRETATION EKG Date: 12/23/17 Time: 11:37 Rhythm: Other Rate (Beats/Min): 81 P-Wave: Absent Comparison: No Change Course - Vital Signs Last Recorded V/S: Last Vital Signs Temp 98.1 F 12/23/17 11:39 Pulse 80 12/23/17 11:39 Resp 20 12/23/17 11:39 BP 132/80 12/23/17 11:39 Pulse Ox 92 L 12/23/17 11:39 - Orders/Labs/Meds Orders: Active Orders 24 hr Category Date Time Status EKG Documentation Completion [RC] STAT Care 12/23/17 11:35 Active RT Aerosol Therapy [RC] ASDIRECTED Care 12/23/17 11:38 Active Chest 1V Frontal [CR] Stat Exams 12/23/17 11:35 Taken CULTURE BLOOD [BC] Stat Lab 12/23/17 11:52 Received CULTURE BLOOD [BC] Stat Lab 12/23/17 11:58 Received CULTURE SPUTUM + SMEAR [RM] Stat Lab 12/23/17 11:35 Results UA W/MICROSCOPIC [URIN] Stat Lab 12/23/17 13:36 Results Blood Culture x2 Reflex Set [OM.PC] Stat Oth 12/23/17 11:35 Ordered Labs: Laboratory Tests 12/23/17 12/23/17 12/23/17 Range/Units 11:58 11:58 11:58 WBC 5.3 (5.0-10.0) 10^3/uL RBC 3.70 L (4.6-6.2) 10^6/uL Hgb 10.3 L (14.0-18.0) g/dL Hct 34.6 L (40.0-54.0) % MCV 93.5 (80-100) fL MCH 27.8 (27.0-34.0) pg MCHC 29.8 L (33.0-35.0) g/dL Plt Count 178 (150-450) 10^3/uL Neut % (Auto) 58.9 (42.2-75.2) % Lymph % (Auto) 19.2 L (20.5-50.1) % [place] % (Auto) 20.5 H (2-8) % Eos % (Auto) 0.8 L (1.0-3.0) % Baso % (Auto) 0.6 (0.0-1.0) % Add Manual Diff Yes Neutrophils % (Manual) 52 (42-75) % Band Neutrophils % 5 % Lymphocytes % (Manual) 21 (20-50) % Monocytes % (Manual) 21 H (2-8) % Eosinophils % (Manual) 1 (1-3) % Sodium 141 (135-145) mmol/L Potassium 4.3 (3.6-5.0) mmol/L Chloride 103 (101-111) mmol/L Carbon Dioxide 28.0 (21.0-31.0) mmol/L Anion Gap 14.3 BUN 41 H (7-18) mg/dL Creatinine 2.1 H (0.6-1.3) mg/dL Est Cr Clr Drug Dosing 26.69 mL/min Estimated GFR (MDRD) 30 BUN/Creatinine Ratio 19.52 Glucose 100 (74-105) mg/dL Lactic Acid (0.5-2.2) mmol/L Calcium 8.5 (8.4-10.2) mg/dl Total Bilirubin 1.5 H (0.2-1.0) mg/dL AST 51 H (10-42) IU/L ALT 25 (10-60) IU/L Alkaline Phosphatase 97 (42-121) IU/L Creatine Kinase 186 H (26-174) IU/L Creatine Kinase Index 2.9 H (0-2.4) % CK-MB (CK-2) 5.40 H (0.4-4.7) ng/mL Troponin I 0.47 H* (0.00-0.02) ng/ml B-Natriuretic Peptide 453 H (0-100) pg/ml Total Protein 6.8 (6.7-8.2) g/dl Albumin 3.9 (3.2-5.5) g/dl Globulin 2.9 Albumin/Globulin Ratio 1.34 Urine Color (YELLOW) Urine Appearance (CLEAR) Urine pH (5.0-9.0) Ur Specific [place] (1.005-1.030) Urine Protein (NEGATIVE) Urine Glucose (UA) (NEGATIVE) Urine Ketones (NEGATIVE) Urine Occult Blood (NEGATIVE) Urine Nitrite (NEGATIVE) Urine Bilirubin (NEGATIVE) Urine Urobilinogen (0.2-1.0) mg/dL Ur Leukocyte Esterase (NEGATIVE) 12/23/17 12/23/17 Range/Units 11:58 13:36 WBC (5.0-10.0) 10^3/uL RBC (4.6-6.2) 10^6/uL Hgb (14.0-18.0) g/dL Hct (40.0-54.0) % MCV (80-100) fL MCH (27.0-34.0) pg MCHC (33.0-35.0) g/dL Plt Count (150-450) 10^3/uL Neut % (Auto) (42.2-75.2) % Lymph % (Auto) (20.5-50.1) % [place] % (Auto) (2-8) % Eos % (Auto) (1.0-3.0) % Baso % (Auto) (0.0-1.0) % Add Manual Diff Neutrophils % (Manual) (42-75) % Band Neutrophils % % Lymphocytes % (Manual) (20-50) % Monocytes % (Manual) (2-8) % Eosinophils % (Manual) (1-3) % Sodium (135-145) mmol/L Potassium (3.6-5.0) mmol/L Chloride (101-111) mmol/L Carbon Dioxide (21.0-31.0) mmol/L Anion Gap BUN (7-18) mg/dL Creatinine (0.6-1.3) mg/dL Est Cr Clr Drug Dosing mL/min Estimated GFR (MDRD) BUN/Creatinine Ratio Glucose (74-105) mg/dL Lactic Acid 1.5 (0.5-2.2) mmol/L Calcium (8.4-10.2) mg/dl Total Bilirubin (0.2-1.0) mg/dL AST (10-42) IU/L ALT (10-60) IU/L Alkaline Phosphatase (42-121) IU/L Creatine Kinase (26-174) IU/L Creatine Kinase Index (0-2.4) % CK-MB (CK-2) (0.4-4.7) ng/mL Troponin I (0.00-0.02) ng/ml B-Natriuretic Peptide (0-100) pg/ml Total Protein (6.7-8.2) g/dl Albumin (3.2-5.5) g/dl Globulin Albumin/Globulin Ratio Urine Color Dark yellow (YELLOW) Urine Appearance Clear (CLEAR) Urine pH 5.5 (5.0-9.0) Ur Specific [place] 1.010 (1.005-1.030) Urine Protein Negative (NEGATIVE) Urine Glucose (UA) Negative (NEGATIVE) Urine Ketones Negative (NEGATIVE) Urine Occult Blood Negative (NEGATIVE) Urine Nitrite Negative (NEGATIVE) Urine Bilirubin Negative (NEGATIVE) Urine Urobilinogen 2.0 H (0.2-1.0) mg/dL Ur Leukocyte Esterase Negative (NEGATIVE) Meds: Medications Discontinued Medications Generic Name Dose Route Start Last Admin Trade Name Freq PRN Reason Stop Dose Admin Albuterol/Ipratropium 3 ml 12/23/17 11:37 12/23/17 11:50 Duoneb 3.0-0.5 Mg/3 Ml NEB 12/23/17 11:38 3 ml ONETIME ONE Administration Furosemide 80 mg 12/23/17 12:20 12/23/17 12:39 Lasix IVPUSH 12/23/17 12:21 80 mg NOW ONE Administration - Radiology Interpretation Free Text/Narrative:: Chest xray:Interval appearance is non-significantly changed. See rad report Departure - Departure Time of Disposition: 13:45 ((Admit to Dr. Robles)) Disposition: Admitted As Inpatient 67 Condition: Poor Clinical Impression: Non-STEMI (non-ST elevated myocardial infarction) - Discharge Information Forms: ED Department Discharge - My Orders Last 24 Hours: My Active Orders 12/23/17 11:35 EKG Documentation Completion [RC] STAT Chest 1V Frontal [CR] Stat CULTURE SPUTUM + SMEAR [RM] Stat Blood Culture x2 Reflex Set [OM.PC] Stat 12/23/17 11:38 RT Aerosol Therapy [RC] ASDIRECTED 12/23/17 11:52 CULTURE BLOOD [BC] Stat 12/23/17 11:58 CULTURE BLOOD [BC] Stat 12/23/17 13:36 UA W/MICROSCOPIC [URIN] Stat - Assessment/Plan Last 24 Hours: My Active Orders 12/23/17 11:35 EKG Documentation Completion [RC] STAT Chest 1V Frontal [CR] Stat CULTURE SPUTUM + SMEAR [RM] Stat Blood Culture x2 Reflex Set [OM.PC] Stat 12/23/17 11:38 RT Aerosol Therapy [RC] ASDIRECTED 12/23/17 11:52 CULTURE BLOOD [BC] Stat 12/23/17 11:58 CULTURE BLOOD [BC] Stat 12/23/17 13:36 UA W/MICROSCOPIC [URIN] Stat
[2017-12-23] MEDS ORDERED: Furosemide 40 MG/4 ML VIAL IVPUSH ONE (12:20)
[2017-12-23] MEDS ORDERED: Aspirin 81 MG Tab.Chew PO ONE (13:49)
[2017-12-23] MEDS ORDERED: Heparin Sodium 5,000 Units/ML Vial ONE (14:03)
[2017-12-23] MEDS: Heparin Sodium/D5W 25,000 UNITS/500 ML BAG IV SCH (14:05)
[2017-12-23] MEDS ORDERED: Heparin Sodium 5,000 Units/ML Vial IVPUSH ONE (14:08)
[2017-12-23] MEDS ORDERED: Acetaminophen 325 MG Tab PO PRN (14:44)
[2017-12-23] MEDS ORDERED: Ondansetron 4 MG Tab.DIS PO PRN (14:44)
[2017-12-23] MEDS ORDERED: Furosemide 40 MG/4 ML VIAL IVPUSH SCH (14:45)
--- NOTE | 2017-12-23 14:57 | PCM.HP ---
H&P History of Present Illness - General Date of Service: 12/23/17 Admit Problem/Dx: Admission Diagnosis/Problem Admission Diagnosis/Problem Acute myocardial infarction Source of Information: Patient - History of Present Illness Initial Comments - Free Text/Narative: The patient is an 82-year-old gentleman with a history of atrial fibrillation, diabetes, chronic diastolic congestive heart failure. The patient was hospitalized in October for congestive heart failure. In the past few days the patient was complaining of increasing shortness of breath, lower extremity edema, generalized weakness. His had cough, body aches. The patient himself was also complaining of cough, brownish sputum production. Associated Symptoms: Reports: Cough, cough w sputum, Loss of Appetite. Denies: Chest Pain - Related Data Allergies/Adverse Reactions: Allergies Allergy/AdvReac Type Severity Reaction Status Date / Time No Known Allergies Allergy Verified 12/23/17 14:38 Home Medications: Home Meds Citalopram [Celexa] 20 mg PO DAILY 07/19/15 [History] Sennosides/Docusate Sodium [Stool Softener] 1 tab PO DAILY PRN 07/19/15 [History ] Albuterol [Ventolin HFA] 2 puff INH Q6H PRN 11/20/16 [History] Levothyroxine [Synthroid] 100 mcg PO DAILY 11/20/16 [History] Lisinopril 5 mg PO DAILY 11/20/16 [History] Metoprolol Succinate [Toprol XL] 100 mg PO DAILY 01/25/17 [History] Glimepiride [Amaryl] 1 mg PO DAILY 06/07/17 [History] Rivaroxaban [Xarelto] 20 mg PO DAILY 06/07/17 [History] Furosemide [Lasix] 40 mg PO BID 10/30/17 [History] Zolpidem Tartrate [Ambien] 5 mg PO BEDTIME PRN 10/30/17 [History] Past Medical History HEENT History: Reports: Cataract, Hard of Hearing, Impaired Vision Other HEENT History: wears glasses for reading only Cardiovascular History: Reports: Afib, Aneurysm, CAD, Heart Failure, Hypertension, [place], SOB on Exertion Respiratory History: Reports: SOB, Other (See Below) Other Respiratory History: wears oxygen at home Gastrointestinal History: Reports: Chronic Constipation, GERD Genitourinary History: Reports: Chronic Renal Insuffiency, Other (See Below) Other Genitourinary History: hx renal cyst Musculoskeletal History: Reports: Back Pain, Chronic, Other (See Below) Other Musculoskeletal History: right hip pain, chronic Neurological History: Reports: CVA Psychiatric History: Reports: Depression Endocrine/Metabolic History: Reports: Diabetes, Type II, Hypothyroidism, Obesity /BMI 30+ Hematologic History: Reports: Anticoagulation Therapy Immunologic History: Reports: None Oncologic (Cancer) History: Reports: None Dermatologic History: Reports: None - Infectious Disease History Infectious Disease History: Reports: C-Difficile, Measles, Mumps - Past Surgical History Head Surgeries/Procedures: Reports: None HEENT Surgical History: Reports: Cataract Surgery Cardiovascular Surgical History: Reports: Aneurysm, Cardiac Ablation, Coronary Artery Bypass GI Surgical History: Reports: Colonoscopy, Other (See Below) Social & Family History - Family History Family Medical History: Noncontributory Neurological: Reports: CVA - Tobacco Use Smoking Status *Q: Former Smoker Years of Tobacco use: 20 Packs/Tins Daily: 1 Used Tobacco, but Quit: Yes Month Tobacco Last Used: unknown Second Hand Smoke Exposure: No - Caffeine Use Caffeine Use: Reports: Coffee - Alcohol Use Days Per Week of Alcohol Use: 7 Number of Drinks Per Day: 2 Total Drinks Per Week: 14 - Recreational Drug Use Recreational Drug Use: No - Living Situation & Occupation Living situation: Reports: , with Spouse Occupation: Retired H&P Review of Systems - Review of Systems: Review Of Systems: See Below General: Reports: Chills, Malaise, Weakness, Fatigue Pulmonary: Reports: Shortness of Breath, Wheezing Cardiovascular: Reports: Dyspnea on Exertion, Edema. Denies: Chest Pain, Syncope Gastrointestinal: Denies: Abdominal Pain Genitourinary: Denies: Dysuria Psychiatric: Denies: Confusion Neurological: Denies: Dizziness Exam - Exam Exam: See Below - Vital Signs Vital Signs: Last Vital Signs Temp 36.7 C 12/23/17 11:39 Pulse 80 12/23/17 11:39 Resp 20 12/23/17 11:39 BP 132/80 12/23/17 11:39 Pulse Ox 92 L 12/23/17 11:39 Weight: 113.67 kg - Exam General: Alert, Oriented Neck: Supple Lungs: Normal Respiratory Effort, Wheezing (Bilateral) Cardiovascular: Irregular Rhythm GI/Abdominal Exam: Normal Bowel Sounds, Soft, Non-Tender Extremities: Pedal Edema (Bilateral 2 to 3+) Neuro Extensive - Mental Status: Alert, Oriented x3 Psychiatric: Alert, Normal Affect, Normal Mood - Patient Data Result Diagrams: 12/23/17 11:58 12/23/17 11:58 Imaging Impressions Last 24 hrs: Chest x-ray per Reading showed chronic congestive changes EKG per my reading showed atrial fibrillation with controlled ventricular rate *Q Meaningful Use (ADM) - VTE *Q VTE Criteria *Q: - Stroke *Q Stroke Criteria *Q: - AMI *Q AMI Criteria *Q: - Problem List (1) Non-STEMI (non-ST elevated myocardial infarction) SNOMED Code(s): 568377153 ICD Code: I21.4 - NON-ST ELEVATION (NSTEMI) MYOCARDIAL INFARCTION Status: Acute Current Visit: Yes (2) Atrial fibrillation SNOMED Code(s): 14868698 ICD Code: I48.91 - UNSPECIFIED ATRIAL FIBRILLATION Status: Acute Current Visit: No Qualifiers: Atrial fibrillation type: persistent Qualified Code(s): I48.1 - Persistent atrial fibrillation (3) Congestive heart failure SNOMED Code(s): 90450839 ICD Code: I50.9 - HEART FAILURE, UNSPECIFIED Status: Acute Current Visit : No Qualifiers: Qualified Code(s): I50.9 - Heart failure, unspecified Problem List Initiated/Reviewed/Updated: Yes Orders Last 24hrs: Active Orders 24 hr Category Date Time Status Patient Status [ADT] Routine ADT 12/23/17 14:44 Ordered Antiembolic Devices [RC] PER UNIT ROUTINE Care 12/23/17 14:47 Ordered Glucose [Blood Glucose Check, Bedside] [RC] QIDACANDBED Care 12/23/17 14:33 Ordered Oxygen Therapy [RC] PRN Care 12/23/17 14:44 Ordered Peripheral IV Care [RC] . DIRECTED Care 12/23/17 14:47 Ordered RT Aerosol Therapy [RC] ASDIRECTED Care 12/23/17 14:33 Ordered RT Aerosol Therapy [RC] ASDIRECTED Care 12/23/17 14:35 Ordered Telemetry Monitoring [Cardiac Monitoring] [RC] . Care 12/23/17 14:30 Ordered DIRECTED Up With Assistance [RC] ASDIRECTED Care 12/23/17 14:44 Ordered VTE/DVT Education [RC] PER UNIT ROUTINE Care 12/23/17 14:44 Ordered Vital Signs [RC] Q4H Care 12/23/17 14:44 Ordered Consistent Carbohydrate Diet [DIET] Diet 12/23/17 Dinner Ordered BASIC METABOLIC PANEL,BMP [CHEM] AM Lab 12/24/17 05:15 Ordered CBC WITH AUTO DIFF [HEME] AM Lab 12/24/17 05:15 Ordered PTT,PARTIAL THROMBOPLSTIN TIME [COAG] Q6H Lab 12/23/17 18:00 Ordered PTT,PARTIAL THROMBOPLSTIN TIME [COAG] Q6H Lab 12/24/17 00:00 Ordered PTT,PARTIAL THROMBOPLSTIN TIME [COAG] Q6H Lab 12/24/17 06:00 Ordered PTT,PARTIAL THROMBOPLSTIN TIME [COAG] Q6H Lab 12/24/17 12:00 Ordered PTT,PARTIAL THROMBOPLSTIN TIME [COAG] Q6H Lab 12/24/17 18:00 Ordered PTT,PARTIAL THROMBOPLSTIN TIME [COAG] Q6H Lab 12/25/17 00:00 Ordered PTT,PARTIAL THROMBOPLSTIN TIME [COAG] Q6H Lab 12/25/17 06:00 Ordered PTT,PARTIAL THROMBOPLSTIN TIME [COAG] Q6H Lab 12/25/17 12:00 Ordered TROPONIN I [CHEM] AM Lab 12/24/17 05:11 Ordered TROPONIN I [CHEM] Routine Lab 12/23/17 18:00 Ordered Acetaminophen [Tylenol] Med 12/23/17 14:44 Ordered 650 mg PO Q4H PRN Albuterol/Ipratropium [DuoNeb 3.0-0.5 MG/3 ML] Med 12/23/17 14:33 Ordered 3 ml NEB Q2H PRN Albuterol/Ipratropium [DuoNeb 3.0-0.5 MG/3 ML] Med 12/23/17 18:00 Ordered 3 ml NEB TIDRT Aspirin Med 12/24/17 08:00 Ordered 325 mg PO WITHBREAKFAST Azithromycin [Zithromax] 500 mg Med 12/23/17 14:45 Ordered Sodium Chloride 0.9% [Normal Saline] 250 ml IV Q24H Budesonide [Pulmicort] Med 12/23/17 18:00 Ordered 0.5 mg NEB BIDRT Citalopram [Celexa] Med 12/24/17 09:00 Ordered 20 mg PO DAILY Furosemide [Lasix] Med 12/23/17 19:00 Ordered 40 mg IVPUSH BIDDIURETIC Glimepiride [Amaryl] Med 12/24/17 09:00 Ordered 1 mg PO DAILY Insulin Aspart [NovoLOG] Med 12/23/17 17:00 Ordered See Protocol SUBCUT TIDAC Levothyroxine [Synthroid] Med 12/24/17 09:00 Ordered 100 mcg PO DAILY Metoprolol Succinate [Toprol XL] Med 12/24/17 09:00 Ordered 100 mg PO DAILY Ondansetron [Zofran ODT] Med 12/23/17 14:44 Ordered 4 mg PO Q4H PRN Oseltamivir [Tamiflu] Med 12/23/17 14:45 Ordered 30 mg PO BID Sodium Chloride 0.9% [Saline Flush] Med 12/23/17 14:44 Ordered 10 ml FLUSH ASDIRECTED PRN Zolpidem [Ambien] Med 12/23/17 14:22 Ordered 5 mg PO BEDTIME PRN cefTRIAXone [Rocephin] 1,000 mg Med 12/23/17 14:45 Ordered Sodium Chloride 0.9% [Normal Saline] 50 ml IV Q24H Antiembolic Hose [OM.PC] Per Unit Routine Oth 12/23/17 14:46 Ordered Peripheral IV Insertion Adult [OM.PC] Routine Oth 12/23/17 14:44 Ordered Saline Lock Insert [OM.PC] Routine Oth 12/23/17 14:44 Ordered Resuscitation Status Routine Resus Stat 12/23/17 14:44 Ordered Medication Orders Acetaminophen (Tylenol) 650 mg PO Q4H PRN PRN Reason: Pain (Mild 1-3)/fever Albuterol/Ipratropium (Duoneb 3.0-0.5 Mg/3 Ml) 3 ml NEB Q2H PRN PRN Reason: sob Albuterol/Ipratropium (Duoneb 3.0-0.5 Mg/3 Ml) 3 ml NEB TIDRT DIVYA Aspirin (Aspirin) 325 mg PO WITHBREAKFAST DIVYA Budesonide (Pulmicort) 0.5 mg NEB BIDRT DIVYA Citalopram Hydrobromide (Celexa) 20 mg PO DAILY DIVYA Furosemide (Lasix) 40 mg IVPUSH BIDDIURETIC DIVYA Glimepiride (Amaryl) 1 mg PO DAILY DIVYA Heparin Sodium/Dextrose (Heparin 25,000 Units In D5w 500 Ml) 25,000 units in 500 mls @ 20 mls/hr IV TITRATE DIVYA; 1,000 UNITS/HR PRN Reason: Protocol Last Admin: 12/23/17 14:05 Dose: 1,000 units/hr, 20 mls/hr Azithromycin 500 mg/ Sodium (Chloride) 250 mls @ 250 mls/hr IV Q24H DIVYA Ceftriaxone Sodium 1,000 mg/ (Sodium Chloride) 50 mls @ 100 mls/hr IV Q24H DIVYA Insulin Aspart (Novolog) 0 unit SUBCUT TIDAC DIVYA PRN Reason: Protocol Levothyroxine Sodium (Synthroid) 100 mcg PO ACBREAKFAST DIVYA Metoprolol Succinate (Toprol Xl) 100 mg PO DAILY DIVYA Ondansetron HCl (Zofran Odt) 4 mg PO Q4H PRN PRN Reason: nausea, able to take PO Oseltamivir Phosphate (Tamiflu) 30 mg PO BID [facility] Sodium Chloride (Saline Flush) 10 ml FLUSH ASDIRECTED PRN PRN Reason: Keep Vein Open Zolpidem Tartrate (Ambien) 5 mg PO BEDTIME PRN PRN Reason: Insomnia Assessment/Plan Comment:: The patient presented with complaints of increased tiredness, shortness of breath, subjective fever, cough with brown sputum. Noted to have significant edema, acute renal failure, elevated troponin. Acute non-ST elevation myocardial infarction We will trend troponin Monitor on telemetry Given aspirin now and daily baby aspirin Continue metoprolol Weight based heparin Acute on Chronic congestive heart failure due to diastolic dysfunction Last echo in 2014 showed EF>60%, grade II diastolic dysfunction Will treat with Lasix Hold VIDAL inhibitor due to renal failure Concern for upper respiratory tract infection With no apparent pneumonia on chest x-ray Obtain sputum culture, blood cultures Will treat with azithromycin, ceftriaxone No influenza test is available Start Tamiflu empirically since had similar cough but she also had body aches acute renal failure with Fluid overload Give IV Lasix hold VIDAL inhibitor Follow electrolytes and renal function test Acute COPD exacerbation Treat with Duoneb scheduled and prn Start pulmicort Atrial fibrillation Rate controlled with metoprolol The patient was on Anticoagulation with xarelto Xarelto dose in renal failure (GFR 15-50) would be15 mg daily For now hold and continue heparin weight-based nomogram Diabetes Treat with Glimepiride DVT prophylaxis. With weight based heparin nomogram for now CODE STATUS was discussed with the patient He would like to receive cardiopulmonary resuscitation if needed But he would not want to be transferred out of [place] as much as possible
[2017-12-23] MEDS ORDERED: Albuterol/Ipratropium 3.0-0.5 MG/3 ML Neb Soln NEB SCH (15:00)
[2017-12-23] MEDS: Oseltamivir 30 MG Cap PO SCH ×2 (16:02→21:15)
[2017-12-23] MEDS: Albuterol/Ipratropium 3.0-0.5 MG/3 ML Neb Soln NEB PRN (16:03)
[2017-12-23] MEDS: cefTRIAXone 1,000 MG in Sodium Chloride 0.9% 50 ML IV SCH (16:03)
[2017-12-23] MEDS: Azithromycin 500 MG in Sodium Chloride 0.9% 250 ML IV SCH (16:31)
[2017-12-23] MEDS: Insulin Aspart 100 Units/ML 3 ML Pen SUBCUT SCH (17:05)
[2017-12-23] MEDS: Budesonide 0.5 MG/2 ML Neb Susp NEB SCH (18:12)
[2017-12-23] MEDS: Albuterol/Ipratropium 3.0-0.5 MG/3 ML Neb Soln NEB SCH ×2 (18:12→21:15)
[2017-12-23] MEDS: Furosemide 40 MG/4 ML VIAL IVPUSH SCH (19:43)
[2017-12-23] MEDS: Zolpidem 5 MG Tab PO PRN (21:15)
[2017-12-24] MEDS: Albuterol/Ipratropium 3.0-0.5 MG/3 ML Neb Soln NEB PRN (01:43)
[2017-12-24] MEDS: Levothyroxine 100 MCG Tab PO SCH (05:39)
[2017-12-24] MEDS: Insulin Aspart 100 Units/ML 3 ML Pen SUBCUT SCH ×3 (07:59→18:06)
[2017-12-24] MEDS: Budesonide 0.5 MG/2 ML Neb Susp NEB SCH ×2 (08:03→17:06)
[2017-12-24] MEDS: Albuterol/Ipratropium 3.0-0.5 MG/3 ML Neb Soln NEB SCH ×4 (08:03→21:22)
[2017-12-24] MEDS: Glimepiride 2 MG Tab PO SCH (08:05)
[2017-12-24] MEDS: Metoprolol Succinate 50 MG Tab.ER PO SCH (08:06)
[2017-12-24] MEDS: Aspirin 325 MG Tab PO SCH (08:07)
[2017-12-24] MEDS: Citalopram 20 MG Tab PO SCH (08:07)
[2017-12-24] MEDS: Oseltamivir 30 MG Cap PO SCH ×2 (08:07→21:22)
[2017-12-24] MEDS: Furosemide 40 MG/4 ML VIAL IVPUSH SCH ×2 (08:08→13:12)
[2017-12-24] MEDS ORDERED: Potassium Chloride 10 MEQ Tab.ER PO ONE (09:28)
--- NOTE | 2017-12-24 09:35 | PCM.PN ---
- General Info Date of Service: 12/24/17 Subjective Update: Feeling well. No chest pain. Shortness of breath is moderate, started before admission, associated with cough, no fever. - Review of Systems General: Denies: Fever Pulmonary: Reports: Shortness of Breath Cardiovascular: Denies: Chest Pain Neurological: Denies: Confusion - Patient Data Vitals - Most Recent: Last Vital Signs Temp 37.3 C 12/24/17 07:57 Pulse 84 12/24/17 08:06 Resp 20 12/24/17 07:57 BP 132/64 12/24/17 08:06 Pulse Ox 94 L 12/24/17 07:57 Weight - Most Recent: 110.677 kg I&O - Last 24 Hours: Intake & Output 12/23/17 12/24/17 12/24/17 22:59 06:59 14:59 Intake Total 1067 100 Output Total 400 300 200 Balance 667 -200 -200 Lab Results Last 24 Hours: Laboratory Results - last 24 hr 12/23/17 12/23/17 12/23/17 Range/Units 17:03 18:25 18:25 WBC (5.0-10.0) 10^3/uL RBC (4.6-6.2) 10^6/uL Hgb (14.0-18.0) g/dL Hct (40.0-54.0) % MCV (80-100) fL MCH (27.0-34.0) pg MCHC (33.0-35.0) g/dL Plt Count (150-450) 10^3/uL Neut % (Auto) (42.2-75.2) % Lymph % (Auto) (20.5-50.1) % Major % (Auto) (2-8) % Eos % (Auto) (1.0-3.0) % Baso % (Auto) (0.0-1.0) % APTT 100.5 H* (22.0-34.0) SEC Sodium (135-145) mmol/L Potassium (3.6-5.0) mmol/L Chloride (101-111) mmol/L Carbon Dioxide (21.0-31.0) mmol/L Anion Gap BUN (7-18) mg/dL Creatinine (0.6-1.3) mg/dL Est Cr Clr Drug Dosing mL/min Estimated GFR (MDRD) Glucose (74-105) mg/dL POC Glucose 83 (83-110) mg/dl Calcium (8.4-10.2) mg/dl Troponin I 0.71 H* (0.00-0.02) ng/ml 12/23/17 12/24/17 12/24/17 Range/Units 21:48 02:00 07:10 WBC (5.0-10.0) 10^3/uL RBC (4.6-6.2) 10^6/uL Hgb (14.0-18.0) g/dL Hct (40.0-54.0) % MCV (80-100) fL MCH (27.0-34.0) pg MCHC (33.0-35.0) g/dL Plt Count (150-450) 10^3/uL Neut % (Auto) (42.2-75.2) % Lymph % (Auto) (20.5-50.1) % Major % (Auto) (2-8) % Eos % (Auto) (1.0-3.0) % Baso % (Auto) (0.0-1.0) % APTT > 120.0 H* (22.0-34.0) SEC Sodium 142 (135-145) mmol/L Potassium 3.5 L (3.6-5.0) mmol/L Chloride 102 (101-111) mmol/L Carbon Dioxide 28.0 (21.0-31.0) mmol/L Anion Gap 15.5 BUN 36 H (7-18) mg/dL Creatinine 1.8 H (0.6-1.3) mg/dL Est Cr Clr Drug Dosing 31.14 mL/min Estimated GFR (MDRD) 36 Glucose 75 (74-105) mg/dL POC Glucose 89 (83-110) mg/dl Calcium 8.2 L (8.4-10.2) mg/dl Troponin I 0.80 H* (0.00-0.02) ng/ml 12/24/17 12/24/17 12/24/17 Range/Units 07:10 07:10 07:51 WBC 6.2 (5.0-10.0) 10^3/uL RBC 3.72 L (4.6-6.2) 10^6/uL Hgb 10.3 L (14.0-18.0) g/dL Hct 34.6 L (40.0-54.0) % MCV 93.0 (80-100) fL MCH 27.7 (27.0-34.0) pg MCHC 29.8 L (33.0-35.0) g/dL Plt Count 186 (150-450) 10^3/uL Neut % (Auto) 63.0 (42.2-75.2) % Lymph % (Auto) 20.7 (20.5-50.1) % Major % (Auto) 14.4 H (2-8) % Eos % (Auto) 1.3 (1.0-3.0) % Baso % (Auto) 0.6 (0.0-1.0) % APTT > 120.0 H* (22.0-34.0) SEC Sodium (135-145) mmol/L Potassium (3.6-5.0) mmol/L Chloride (101-111) mmol/L Carbon Dioxide (21.0-31.0) mmol/L Anion Gap BUN (7-18) mg/dL Creatinine (0.6-1.3) mg/dL Est Cr Clr Drug Dosing mL/min Estimated GFR (MDRD) Glucose (74-105) mg/dL POC Glucose 82 L (83-110) mg/dl Calcium (8.4-10.2) mg/dl Troponin I (0.00-0.02) ng/ml Med Orders - Current: Current Medications Acetaminophen (Tylenol) 650 mg PO Q4H PRN PRN Reason: Pain (Mild 1-3)/fever Albuterol/Ipratropium (Duoneb 3.0-0.5 Mg/3 Ml) 3 ml NEB Q2H PRN PRN Reason: sob Last Admin: 12/24/17 01:43 Dose: 3 ml Albuterol/Ipratropium (Duoneb 3.0-0.5 Mg/3 Ml) 3 ml NEB TIDRT [facility] Last Admin: 12/24/17 08:03 Dose: 3 ml Aspirin (Aspirin) 325 mg PO WITHBREAKFAST [facility] Last Admin: 12/24/17 08:07 Dose: 325 mg Budesonide (Pulmicort) 0.5 mg NEB BIDRT [facility] Last Admin: 12/24/17 08:03 Dose: 0.5 mg Citalopram Hydrobromide (Celexa) 20 mg PO DAILY [facility] Last Admin: 12/24/17 08:07 Dose: 20 mg Furosemide (Lasix) 40 mg IVPUSH BIDDIURETIC [facility] Last Admin: 12/24/17 08:08 Dose: 40 mg Glimepiride (Amaryl) 1 mg PO DAILY [facility] Last Admin: 12/24/17 08:05 Dose: 1 mg Heparin Sodium/Dextrose (Heparin 25,000 Units In D5w 500 Ml) 25,000 units in 500 mls @ 20 mls/hr IV TITRATE [facility]; 1,000 UNITS/HR PRN Reason: Protocol Last Titration: 12/24/17 09:24 Dose: 11 units/hr, 0.22 mls/hr Azithromycin 500 mg/ Sodium (Chloride) 250 mls @ 250 mls/hr IV Q24H [facility] Last Infusion: 12/23/17 16:39 Dose: 100 mls/hr Ceftriaxone Sodium 1,000 mg/ (Sodium Chloride) 50 mls @ 100 mls/hr IV Q24H [facility] Last Admin: 12/23/17 16:03 Dose: 100 mls/hr Insulin Aspart (Novolog) 0 unit SUBCUT TIDAC [facility] PRN Reason: Protocol Last Admin: 12/24/17 07:59 Dose: Not Given Levothyroxine Sodium (Synthroid) 100 mcg PO ACBREAKFAST [facility] Last Admin: 12/24/17 05:39 Dose: 100 mcg Metoprolol Succinate (Toprol Xl) 100 mg PO DAILY [facility] Last Admin: 12/24/17 08:06 Dose: 100 mg Ondansetron HCl (Zofran Odt) 4 mg PO Q4H PRN PRN Reason: nausea, able to take PO Oseltamivir Phosphate (Tamiflu) 30 mg PO BID [facility] Last Admin: 12/24/17 08:07 Dose: 30 mg Potassium Chloride (Klor-Con 10) 20 meq PO ONETIME ONE Stop: 12/24/17 09:29 Sodium Chloride (Saline Flush) 10 ml FLUSH ASDIRECTED PRN PRN Reason: Keep Vein Open Zolpidem Tartrate (Ambien) 5 mg PO BEDTIME PRN PRN Reason: Insomnia Last Admin: 12/23/17 21:15 Dose: 5 mg Discontinued Medications Albuterol/Ipratropium (Duoneb 3.0-0.5 Mg/3 Ml) 3 ml NEB ONETIME ONE Stop: 12/23/17 11:38 Last Admin: 12/23/17 11:50 Dose: 3 ml Aspirin (Aspirin) 324 mg PO ONETIME ONE Stop: 12/23/17 13:50 Last Admin: 12/23/17 13:54 Dose: 324 mg Furosemide (Lasix) 80 mg IVPUSH NOW ONE Stop: 12/23/17 12:21 Last Admin: 12/23/17 12:39 Dose: 80 mg Furosemide (Lasix) 40 mg IVPUSH BIDDIURETIC [facility] Last Admin: 12/23/17 16:54 Dose: Not Given Heparin Sodium (Porcine) (Heparin Sodium) Confirm Administered Dose 5,000 units .ROUTE .STK-MED ONE Stop: 12/23/17 14:04 Last Admin: 12/23/17 14:12 Dose: Not Given Heparin Sodium (Porcine) (Heparin Sodium) 4,000 units IVPUSH ONETIME ONE Stop: 12/23/17 14:09 Last Admin: 12/23/17 14:05 Dose: 4,000 units - Exam General: Alert, Oriented Lungs: Decreased Breath Sounds, Wheezing (Mild) Cardiovascular: Irregular Rhythm GI/Abdominal Exam: Normal Bowel Sounds, Soft, Non-Tender Extremities: Pedal Edema (1-2+ bilateral) - Problem List & Annotations (1) Non-STEMI (non-ST elevated myocardial infarction) SNOMED Code(s): 411895085 Code(s): I21.4 - NON-ST ELEVATION (NSTEMI) MYOCARDIAL INFARCTION Status: Acute Current Visit: Yes (2) Atrial fibrillation SNOMED Code(s): 74218066 Code(s): I48.91 - UNSPECIFIED ATRIAL FIBRILLATION Status: Acute Current Visit: No Qualifiers: Atrial fibrillation type: persistent Qualified Code(s): I48.1 - Persistent atrial fibrillation (3) Congestive heart failure SNOMED Code(s): 36367846 Code(s): I50.9 - HEART FAILURE, UNSPECIFIED Status: Acute Current Visit: No Qualifiers: Qualified Code(s): I50.9 - Heart failure, unspecified - Problem List Review Problem List Initiated/Reviewed/Updated: Yes - My Orders Last 24 Hours: My Active Orders 12/23/17 18:03 Flutter Valve Therapy [RT Chest Physiotherapy] [RC] ASDIRECTED RT Incentive Spirometry [RC] ASDIRECTED 12/23/17 19:00 Furosemide [Lasix] 40 mg IVPUSH BIDDIURETIC 12/24/17 09:28 Potassium Chloride [Klor-Con 10] 20 meq PO ONETIME ONE 12/24/17 14:00 PTT,PARTIAL THROMBOPLSTIN TIME [COAG] Routine 12/25/17 05:11 TROPONIN I [CHEM] AM 12/25/17 05:15 BASIC METABOLIC PANEL,BMP [CHEM] AM CBC WITH AUTO DIFF [HEME] AM - Plan Plan:: The patient presented with complaints of increased tiredness, shortness of breath, subjective fever, cough with brown sputum. Noted to have significant edema, acute renal failure, elevated troponin. Acute non-ST elevation myocardial infarction Troponin increased since admission but appears stabilizing now, recheck troponin in the morning Monitor on telemetry Continue aspirin daily Continue metoprolol Weight based heparin Acute on Chronic congestive heart failure due to diastolic dysfunction Last echo in 2014 showed EF>60%, grade II diastolic dysfunction Will treat with Lasix Hold VIDAL inhibitor due to renal failure Concern for upper respiratory tract infection With no apparent pneumonia on chest x-ray Pending sputum culture, blood cultures Will treat with azithromycin, ceftriaxone No influenza test is available Continue Tamiflu acute renal failure with Fluid overload Continue IV Lasix hold VIDAL inhibitor Follow electrolytes and renal function test Acute COPD exacerbation Treat with Duoneb scheduled and prn use pulmicort Atrial fibrillation Rate controlled with metoprolol The patient was on Anticoagulation with xarelto Xarelto dose in renal failure (GFR 15-50) would be 15 mg daily For now hold and continue heparin weight-based nomogram Diabetes Treat with Glimepiride DVT prophylaxis. With weight based heparin nomogram for now CODE STATUS was discussed with the patient He would like to receive cardiopulmonary resuscitation if needed
[2017-12-24] MEDS: Heparin Sodium/D5W 25,000 UNITS/500 ML BAG IV SCH (11:14)
[2017-12-24] MEDS: cefTRIAXone 1,000 MG in Sodium Chloride 0.9% 50 ML IV SCH (15:15)
[2017-12-24] MEDS: Azithromycin 500 MG in Sodium Chloride 0.9% 250 ML IV SCH (15:21)
[2017-12-25] MEDS: Levothyroxine 100 MCG Tab PO SCH (05:46)
[2017-12-25] MEDS: Albuterol/Ipratropium 3.0-0.5 MG/3 ML Neb Soln NEB SCH ×4 (07:16→21:51)
[2017-12-25] MEDS: Budesonide 0.5 MG/2 ML Neb Susp NEB SCH ×2 (07:17→17:07)
[2017-12-25] MEDS: Insulin Aspart 100 Units/ML 3 ML Pen SUBCUT SCH ×3 (07:57→17:51)
[2017-12-25] MEDS: Aspirin 325 MG Tab PO SCH (09:43)
[2017-12-25] MEDS: Oseltamivir 30 MG Cap PO SCH ×2 (09:44→21:51)
[2017-12-25] MEDS: Glimepiride 2 MG Tab PO SCH (09:44)
[2017-12-25] MEDS: Citalopram 20 MG Tab PO SCH (09:45)
[2017-12-25] MEDS: Metoprolol Succinate 50 MG Tab.ER PO SCH (09:45)
[2017-12-25] MEDS: Furosemide 40 MG/4 ML VIAL IVPUSH SCH ×2 (10:24→14:28)
[2017-12-25] MEDS: Sodium Chloride 0.9% 10 ML Syringe FLUSH PRN ×3 (10:25→21:52)
--- NOTE | 2017-12-25 10:59 | PCM.PN ---
- General Info Date of Service: 12/25/17 Admission Dx/Problem (Free Text): Admission Diagnosis/Problem Admission Diagnosis/Problem Acute myocardial infarction Subjective Update: Feeling well. No chest pain. Shortness of breath is moderate, started before admission, has improved since admission associated with cough. Functional Status: Reports: Pain Controlled - Review of Systems General: Denies: Fever Pulmonary: Reports: Shortness of Breath Cardiovascular: Denies: Chest Pain Gastrointestinal: Denies: Abdominal Pain Genitourinary: Denies: Dysuria - Patient Data Vitals - Most Recent: Last Vital Signs Temp 37.1 C 12/25/17 07:58 Pulse 84 12/25/17 09:45 Resp 20 12/25/17 07:58 BP 146/82 H 12/25/17 09:45 Pulse Ox 96 12/25/17 07:58 Weight - Most Recent: 112.491 kg I&O - Last 24 Hours: Intake & Output 12/24/17 12/25/17 12/25/17 22:59 06:59 14:59 Intake Total 867 100 900 Output Total 125 175 150 Balance 742 -75 750 Lab Results Last 24 Hours: Laboratory Results - last 24 hr 12/24/17 12/24/17 12/24/17 Range/Units 11:03 14:02 16:51 WBC (5.0-10.0) 10^3/uL RBC (4.6-6.2) 10^6/uL Hgb (14.0-18.0) g/dL Hct (40.0-54.0) % MCV (80-100) fL MCH (27.0-34.0) pg MCHC (33.0-35.0) g/dL Plt Count (150-450) 10^3/uL Neut % (Auto) (42.2-75.2) % Lymph % (Auto) (20.5-50.1) % [place] % (Auto) (2-8) % Eos % (Auto) (1.0-3.0) % Baso % (Auto) (0.0-1.0) % Add Manual Diff Neutrophils % (Manual) (42-75) % Lymphocytes % (Manual) (20-50) % Monocytes % (Manual) (2-8) % Eosinophils % (Manual) (1-3) % APTT 108.8 H* (22.0-34.0) SEC Sodium (135-145) mmol/L Potassium (3.6-5.0) mmol/L Chloride (101-111) mmol/L Carbon Dioxide (21.0-31.0) mmol/L Anion Gap BUN (7-18) mg/dL Creatinine (0.6-1.3) mg/dL Est Cr Clr Drug Dosing mL/min Estimated GFR (MDRD) Glucose (74-105) mg/dL POC Glucose 111 H 94 (83-110) mg/dl Calcium (8.4-10.2) mg/dl Troponin I (0.00-0.02) ng/ml 12/24/17 12/24/17 12/25/17 Range/Units 20:47 21:07 04:30 WBC 8.3 (5.0-10.0) 10^3/uL RBC 3.77 L (4.6-6.2) 10^6/uL Hgb 10.5 L (14.0-18.0) g/dL Hct 34.9 L (40.0-54.0) % MCV 92.6 (80-100) fL MCH 27.9 (27.0-34.0) pg MCHC 30.1 L (33.0-35.0) g/dL Plt Count 189 (150-450) 10^3/uL Neut % (Auto) 69.2 (42.2-75.2) % Lymph % (Auto) 16.0 L (20.5-50.1) % [place] % (Auto) 13.3 H (2-8) % Eos % (Auto) 1.1 (1.0-3.0) % Baso % (Auto) 0.4 (0.0-1.0) % Add Manual Diff Yes Neutrophils % (Manual) 70 (42-75) % Lymphocytes % (Manual) 18 L (20-50) % Monocytes % (Manual) 11 H (2-8) % Eosinophils % (Manual) 1 (1-3) % APTT 53.6 H (22.0-34.0) SEC Sodium (135-145) mmol/L Potassium (3.6-5.0) mmol/L Chloride (101-111) mmol/L Carbon Dioxide (21.0-31.0) mmol/L Anion Gap BUN (7-18) mg/dL Creatinine (0.6-1.3) mg/dL Est Cr Clr Drug Dosing mL/min Estimated GFR (MDRD) Glucose (74-105) mg/dL POC Glucose 107 (83-110) mg/dl Calcium (8.4-10.2) mg/dl Troponin I (0.00-0.02) ng/ml 12/25/17 12/25/17 12/25/17 Range/Units 04:30 04:30 07:50 WBC (5.0-10.0) 10^3/uL RBC (4.6-6.2) 10^6/uL Hgb (14.0-18.0) g/dL Hct (40.0-54.0) % MCV (80-100) fL MCH (27.0-34.0) pg MCHC (33.0-35.0) g/dL Plt Count (150-450) 10^3/uL Neut % (Auto) (42.2-75.2) % Lymph % (Auto) (20.5-50.1) % [place] % (Auto) (2-8) % Eos % (Auto) (1.0-3.0) % Baso % (Auto) (0.0-1.0) % Add Manual Diff Neutrophils % (Manual) (42-75) % Lymphocytes % (Manual) (20-50) % Monocytes % (Manual) (2-8) % Eosinophils % (Manual) (1-3) % APTT 51.4 H (22.0-34.0) SEC Sodium 140 (135-145) mmol/L Potassium 3.8 (3.6-5.0) mmol/L Chloride 104 (101-111) mmol/L Carbon Dioxide 29.0 (21.0-31.0) mmol/L Anion Gap 10.8 BUN 33 H (7-18) mg/dL Creatinine 1.5 H (0.6-1.3) mg/dL Est Cr Clr Drug Dosing 37.37 mL/min Estimated GFR (MDRD) 45 Glucose 83 (74-105) mg/dL POC Glucose 106 (83-110) mg/dl Calcium 8.1 L (8.4-10.2) mg/dl Troponin I 0.53 H* (0.00-0.02) ng/ml [place] Results Last 24 Hours: Microbiology 12/24/17 10:58 Influenza Type A Antigen Screen - Final Nasal, Unspecified Positive Influenza A Ag Influenza Type B Antigen Screen - Final NEGATIVE INFLUENZA B VIRUS AG Med Orders - Current: Current Medications Acetaminophen (Tylenol) 650 mg PO Q4H PRN PRN Reason: Pain (Mild 1-3)/fever Albuterol/Ipratropium (Duoneb 3.0-0.5 Mg/3 Ml) 3 ml NEB Q2H PRN PRN Reason: sob Last Admin: 12/24/17 01:43 Dose: 3 ml Albuterol/Ipratropium (Duoneb 3.0-0.5 Mg/3 Ml) 3 ml NEB QIDRT [facility] Last Admin: 12/25/17 07:16 Dose: 3 ml Aspirin (Aspirin) 325 mg PO WITHBREAKFAST [facility] Last Admin: 12/25/17 09:43 Dose: 325 mg Budesonide (Pulmicort) 0.5 mg NEB BIDRT [facility] Last Admin: 12/25/17 07:17 Dose: 0.5 mg Ceftriaxone Sodium (Rocephin) 1 gm IVPUSH Q24H [facility] Citalopram Hydrobromide (Celexa) 20 mg PO DAILY [facility] Last Admin: 12/25/17 09:45 Dose: 20 mg Furosemide (Lasix) 40 mg IVPUSH BIDDIURETIC [facility] Last Admin: 12/25/17 10:24 Dose: 40 mg Glimepiride (Amaryl) 1 mg PO DAILY [facility] [place] Last Admin: 12/25/17 09:44 Dose: 1 mg Azithromycin 500 mg/ Sodium (Chloride) 250 mls @ 250 mls/hr IV Q24H [facility] Last Infusion: 12/24/17 19:30 Dose: Infused Insulin Aspart (Novolog) 0 unit SUBCUT TIDAC [facility] PRN Reason: Protocol Last Admin: 12/25/17 07:57 Dose: Not Given Levothyroxine Sodium (Synthroid) 100 mcg PO ACBREAKFAST [facility] Last Admin: 12/25/17 05:46 Dose: 100 mcg Metoprolol Succinate (Toprol Xl) 100 mg PO DAILY [facility] Last Admin: 12/25/17 09:45 Dose: 100 mg Ondansetron HCl (Zofran Odt) 4 mg PO Q4H PRN PRN Reason: nausea, able to take PO Oseltamivir Phosphate (Tamiflu) 30 mg PO BID [facility] Last Admin: 12/25/17 09:44 Dose: 30 mg Sodium Chloride (Saline Flush) 10 ml FLUSH ASDIRECTED PRN PRN Reason: Keep Vein Open Last Admin: 12/25/17 10:25 Dose: 10 ml Zolpidem Tartrate (Ambien) 5 mg PO BEDTIME PRN PRN Reason: Insomnia Last Admin: 12/23/17 21:15 Dose: 5 mg Discontinued Medications Albuterol/Ipratropium (Duoneb 3.0-0.5 Mg/3 Ml) 3 ml NEB ONETIME ONE Stop: 12/23/17 11:38 Last Admin: 12/23/17 11:50 Dose: 3 ml Albuterol/Ipratropium (Duoneb 3.0-0.5 Mg/3 Ml) 3 ml NEB TIDRT [facility] Last Admin: 12/24/17 15:05 Dose: Not Given Aspirin (Aspirin) 324 mg PO ONETIME ONE Stop: 12/23/17 13:50 Last Admin: 12/23/17 13:54 Dose: 324 mg Furosemide (Lasix) 80 mg IVPUSH NOW ONE Stop: 12/23/17 12:21 Last Admin: 12/23/17 12:39 Dose: 80 mg Furosemide (Lasix) 40 mg IVPUSH BIDDIURETIC [facility] Last Admin: 12/23/17 16:54 Dose: Not Given Heparin Sodium (Porcine) (Heparin Sodium) Confirm Administered Dose 5,000 units .ROUTE .STK-MED ONE Stop: 12/23/17 14:04 Last Admin: 12/23/17 14:12 Dose: Not Given Heparin Sodium (Porcine) (Heparin Sodium) 4,000 units IVPUSH ONETIME ONE Stop: 12/23/17 14:09 Last Admin: 12/23/17 14:05 Dose: 4,000 units Heparin Sodium/Dextrose (Heparin 25,000 Units In D5w 500 Ml) 25,000 units in 500 mls @ 20 mls/hr IV TITRATE [facility]; 1,000 UNITS/HR PRN Reason: Protocol Last Titration: 12/25/17 10:42 Dose: 0 units/hr, 0 mls/hr Ceftriaxone Sodium 1,000 mg/ (Sodium Chloride) 50 mls @ 100 mls/hr IV Q24H [facility] Last Admin: 12/24/17 15:15 Dose: 100 mls/hr Potassium Chloride (Klor-Con 10) 20 meq PO ONETIME ONE Stop: 12/24/17 09:29 Last Admin: 12/24/17 11:12 Dose: 20 meq - Exam General: Alert, Oriented Neck: Supple Lungs: Normal Respiratory Effort, Rhonchi, Wheezing (Mild bilateral) Cardiovascular: Irregular Rhythm GI/Abdominal Exam: Normal Bowel Sounds, Soft, Non-Tender Extremities: Pedal Edema (2+) Neurological: No New Focal Deficit Psy/Mental Status: Alert, Normal Affect, Normal Mood - Problem List & Annotations (1) Non-STEMI (non-ST elevated myocardial infarction) SNOMED Code(s): 572977800 Code(s): I21.4 - NON-ST ELEVATION (NSTEMI) MYOCARDIAL INFARCTION Status: Acute Current Visit: Yes (2) Atrial fibrillation SNOMED Code(s): 32156533 Code(s): I48.91 - UNSPECIFIED ATRIAL FIBRILLATION Status: Acute Current Visit: No Qualifiers: Atrial fibrillation type: persistent Qualified Code(s): I48.1 - Persistent atrial fibrillation (3) Congestive heart failure SNOMED Code(s): 71080990 Code(s): I50.9 - HEART FAILURE, UNSPECIFIED Status: Acute Current Visit: No Qualifiers: Qualified Code(s): I50.9 - Heart failure, unspecified - Problem List Review Problem List Initiated/Reviewed/Updated: Yes - My Orders Last 24 Hours: My Active Orders 12/24/17 16:21 RT Aerosol Therapy [RC] ASDIRECTED 12/24/17 18:00 Albuterol/Ipratropium [DuoNeb 3.0-0.5 MG/3 ML] 3 ml NEB QIDRT 12/25/17 16:00 cefTRIAXone [Rocephin] 1 gm IVPUSH Q24H 12/26/17 05:15 BASIC METABOLIC PANEL,BMP [CHEM] AM CBC WITH AUTO DIFF [HEME] AM - Plan Plan:: The patient presented with complaints of increased tiredness, shortness of breath, subjective fever, cough with brown sputum. Noted to have significant edema, acute renal failure, elevated troponin. Acute non-ST elevation myocardial infarction Troponin decreased from its peak Monitor on telemetry - no significant arrhythmia Continue aspirin daily Continue metoprolol stop Weight based heparin Acute on Chronic congestive heart failure due to diastolic dysfunction Last echo in 2014 showed EF>60%, grade II diastolic dysfunction Will treat with Lasix Hold VIDAL inhibitor due to renal failure upper respiratory tract infection with influenza With no apparent pneumonia on chest x-ray Pending sputum culture, blood cultures Will treat with azithromycin, ceftriaxone tested positive for influenza Continue Tamiflu acute renal failure with Fluid overload Continue IV Lasix hold VIDAL inhibitor Follow electrolytes and renal function test Acute COPD exacerbation Treat with Duoneb scheduled and prn use pulmicort Atrial fibrillation Rate controlled with metoprolol The patient was on Anticoagulation with xarelto resume Xarelto - dose adjust to renal failure (GFR 15-50) - 15 mg daily Diabetes Treat with Glimepiride DVT prophylaxis. With weight based heparin nomogram for now CODE STATUS was discussed with the patient He would like to receive cardiopulmonary resuscitation if needed
[2017-12-25] MEDS: Nystatin Susp 100,000 Unit/ML 5 ML UD Cup PO SCH ×2 (14:27→21:50)
[2017-12-25] MEDS: cefTRIAXone 1 GM Vial IVPUSH SCH (15:26)
[2017-12-25] MEDS: Azithromycin 500 MG in Sodium Chloride 0.9% 250 ML IV SCH (15:28)
[2017-12-25] MEDS: Rivaroxaban 10 MG Tab PO SCH (17:31)
[2017-12-25] MEDS: Zolpidem 5 MG Tab PO PRN (23:27)
[2017-12-26] MEDS: Levothyroxine 100 MCG Tab PO SCH (06:24)
[2017-12-26] MEDS: Albuterol/Ipratropium 3.0-0.5 MG/3 ML Neb Soln NEB SCH ×4 (07:49→20:53)
[2017-12-26] MEDS: Budesonide 0.5 MG/2 ML Neb Susp NEB SCH ×2 (07:50→17:50)
[2017-12-26] MEDS: Furosemide 40 MG/4 ML VIAL IVPUSH SCH ×2 (08:53→13:54)
[2017-12-26] MEDS: Sodium Chloride 0.9% 10 ML Syringe FLUSH PRN ×3 (08:53→20:59)
[2017-12-26] MEDS: Glimepiride 2 MG Tab PO SCH (10:13)
[2017-12-26] MEDS: Citalopram 20 MG Tab PO SCH (10:13)
[2017-12-26] MEDS: Metoprolol Succinate 50 MG Tab.ER PO SCH (10:14)
[2017-12-26] MEDS: Nystatin Susp 100,000 Unit/ML 5 ML UD Cup PO SCH ×3 (10:16→20:53)
[2017-12-26] MEDS: Oseltamivir 30 MG Cap PO SCH ×2 (10:16→20:53)
[2017-12-26] MEDS: Insulin Aspart 100 Units/ML 3 ML Pen SUBCUT SCH ×3 (10:16→17:26)
[2017-12-26] MEDS: Aspirin 81 MG Tab.Chew PO SCH (10:21)
--- NOTE | 2017-12-26 11:10 | PCM.PN ---
- General Info Date of Service: 12/26/17 Admission Dx/Problem (Free Text): Admission Diagnosis/Problem Admission Diagnosis/Problem Acute myocardial infarction Subjective Update: Feeling well. No chest pain. Shortness of breath is better, moderate, started before admission, has improved since admission associated with cough. He has been off and walking a little bit. No chest pain with that. Functional Status: Reports: Tolerating Diet - Review of Systems General: Denies: Fever Pulmonary: Reports: Wheezing Cardiovascular: Reports: Edema Neurological: Denies: Confusion - Patient Data Vitals - Most Recent: Last Vital Signs Temp 36.8 C 12/26/17 04:10 Pulse 60 12/26/17 10:14 Resp 20 12/26/17 04:10 BP 147/90 H 12/26/17 10:14 Pulse Ox 95 12/26/17 04:10 Weight - Most Recent: 112.491 kg I&O - Last 24 Hours: Intake & Output 12/25/17 12/26/17 12/26/17 22:59 06:59 14:59 Intake Total 790 300 Output Total 875 150 Balance -85 150 Lab Results Last 24 Hours: Laboratory Results - last 24 hr 12/25/17 12/25/17 12/25/17 Range/Units 11:55 16:55 20:48 WBC (5.0-10.0) 10^3/uL RBC (4.6-6.2) 10^6/uL Hgb (14.0-18.0) g/dL Hct (40.0-54.0) % MCV (80-100) fL MCH (27.0-34.0) pg MCHC (33.0-35.0) g/dL Plt Count (150-450) 10^3/uL Neut % (Auto) (42.2-75.2) % Lymph % (Auto) (20.5-50.1) % [place] % (Auto) (2-8) % Eos % (Auto) (1.0-3.0) % Baso % (Auto) (0.0-1.0) % Sodium (135-145) mmol/L Potassium (3.6-5.0) mmol/L Chloride (101-111) mmol/L Carbon Dioxide (21.0-31.0) mmol/L Anion Gap BUN (7-18) mg/dL Creatinine (0.6-1.3) mg/dL Est Cr Clr Drug Dosing mL/min Estimated GFR (MDRD) Glucose (74-105) mg/dL POC Glucose 120 H 133 H 90 (83-110) mg/dl Calcium (8.4-10.2) mg/dl 12/26/17 12/26/17 12/26/17 Range/Units 06:30 06:30 08:03 WBC 7.8 (5.0-10.0) 10^3/uL RBC 3.91 L (4.6-6.2) 10^6/uL Hgb 10.8 L (14.0-18.0) g/dL Hct 36.2 L (40.0-54.0) % MCV 92.6 (80-100) fL MCH 27.6 (27.0-34.0) pg MCHC 29.8 L (33.0-35.0) g/dL Plt Count 192 (150-450) 10^3/uL Neut % (Auto) 63.2 (42.2-75.2) % Lymph % (Auto) 21.3 (20.5-50.1) % [place] % (Auto) 13.5 H (2-8) % Eos % (Auto) 1.5 (1.0-3.0) % Baso % (Auto) 0.5 (0.0-1.0) % Sodium 141 (135-145) mmol/L Potassium 3.9 (3.6-5.0) mmol/L Chloride 102 (101-111) mmol/L Carbon Dioxide 29.0 (21.0-31.0) mmol/L Anion Gap 13.9 BUN 29 H (7-18) mg/dL Creatinine 1.3 (0.6-1.3) mg/dL Est Cr Clr Drug Dosing 43.12 mL/min Estimated GFR (MDRD) 53 Glucose 85 (74-105) mg/dL POC Glucose 90 (83-110) mg/dl Calcium 8.4 (8.4-10.2) mg/dl Med Orders - Current: Current Medications Acetaminophen (Tylenol) 650 mg PO Q4H PRN PRN Reason: Pain (Mild 1-3)/fever Albuterol/Ipratropium (Duoneb 3.0-0.5 Mg/3 Ml) 3 ml NEB Q2H PRN PRN Reason: sob Last Admin: 12/24/17 01:43 Dose: 3 ml Albuterol/Ipratropium (Duoneb 3.0-0.5 Mg/3 Ml) 3 ml NEB QIDRT [facility] Last Admin: 12/26/17 07:49 Dose: 3 ml Aspirin (Aspirin) 81 mg PO WITHBREAKFAST [facility] Last Admin: 12/26/17 10:21 Dose: 81 mg Budesonide (Pulmicort) 0.5 mg NEB BIDRT [facility] Last Admin: 12/26/17 07:50 Dose: 0.5 mg Ceftriaxone Sodium (Rocephin) 1 gm IVPUSH Q24H [facility] Last Admin: 12/25/17 15:26 Dose: 1 gm Citalopram Hydrobromide (Celexa) 20 mg PO DAILY [facility] Last Admin: 12/26/17 10:13 Dose: 20 mg Furosemide (Lasix) 40 mg IVPUSH BIDDIURETIC [facility] Last Admin: 12/26/17 08:53 Dose: 40 mg Glimepiride (Amaryl) 1 mg PO DAILY [facility] Last Admin: 12/26/17 10:13 Dose: 1 mg Azithromycin 500 mg/ Sodium (Chloride) 250 mls @ 250 mls/hr IV Q24H [facility] Last Infusion: 12/25/17 18:14 Dose: Infused Insulin Aspart (Novolog) 0 unit SUBCUT TIDAC [facility] PRN Reason: Protocol Last Admin: 12/26/17 10:16 Dose: Not Given Levothyroxine Sodium (Synthroid) 100 mcg PO ACBREAKFAST [facility] Last Admin: 12/26/17 06:24 Dose: 100 mcg Metoprolol Succinate (Toprol Xl) 100 mg PO DAILY [facility] Last Admin: 12/26/17 10:14 Dose: 100 mg Nystatin (Mycostatin) 5 ml PO TID [facility] Last Admin: 12/26/17 10:16 Dose: 5 ml Ondansetron HCl (Zofran Odt) 4 mg PO Q4H PRN PRN Reason: nausea, able to take PO Oseltamivir Phosphate (Tamiflu) 30 mg PO BID [facility] Last Admin: 12/26/17 10:16 Dose: 30 mg Rivaroxaban (Xarelto) 15 mg PO WITHDINNER [facility] Last Admin: 12/25/17 17:31 Dose: 15 mg Sodium Chloride (Saline Flush) 10 ml FLUSH ASDIRECTED PRN PRN Reason: Keep Vein Open Last Admin: 12/26/17 08:53 Dose: 10 ml Zolpidem Tartrate (Ambien) 5 mg PO BEDTIME PRN PRN Reason: Insomnia Last Admin: 12/25/17 23:27 Dose: 5 mg Discontinued Medications Albuterol/Ipratropium (Duoneb 3.0-0.5 Mg/3 Ml) 3 ml NEB ONETIME ONE Stop: 12/23/17 11:38 Last Admin: 12/23/17 11:50 Dose: 3 ml Albuterol/Ipratropium (Duoneb 3.0-0.5 Mg/3 Ml) 3 ml NEB TIDRT [facility] Last Admin: 12/24/17 15:05 Dose: Not Given Aspirin (Aspirin) 324 mg PO ONETIME ONE Stop: 12/23/17 13:50 Last Admin: 12/23/17 13:54 Dose: 324 mg Aspirin (Aspirin) 325 mg PO WITHBREAKFAST [facility] Last Admin: 12/25/17 09:43 Dose: 325 mg Furosemide (Lasix) 80 mg IVPUSH NOW ONE Stop: 12/23/17 12:21 Last Admin: 12/23/17 12:39 Dose: 80 mg Furosemide (Lasix) 40 mg IVPUSH BIDDIURETIC [facility] Last Admin: 12/23/17 16:54 Dose: Not Given Heparin Sodium (Porcine) (Heparin Sodium) Confirm Administered Dose 5,000 units .ROUTE .STK-MED ONE Stop: 12/23/17 14:04 Last Admin: 12/23/17 14:12 Dose: Not Given Heparin Sodium (Porcine) (Heparin Sodium) 4,000 units IVPUSH ONETIME ONE Stop: 12/23/17 14:09 Last Admin: 12/23/17 14:05 Dose: 4,000 units Heparin Sodium/Dextrose (Heparin 25,000 Units In D5w 500 Ml) 25,000 units in 500 mls @ 20 mls/hr IV TITRATE [facility]; 1,000 UNITS/HR PRN Reason: Protocol Last Titration: 12/25/17 10:42 Dose: 0 units/hr, 0 mls/hr Ceftriaxone Sodium 1,000 mg/ (Sodium Chloride) 50 mls @ 100 mls/hr IV Q24H [facility] Last Admin: 12/24/17 15:15 Dose: 100 mls/hr Potassium Chloride (Klor-Con 10) 20 meq PO ONETIME ONE Stop: 12/24/17 09:29 Last Admin: 12/24/17 11:12 Dose: 20 meq - Exam Quality Assessment: Supplemental Oxygen General: Alert, Oriented Lungs: Normal Respiratory Effort, Rhonchi, Wheezing (Mild bilateral) Cardiovascular: Irregular Rhythm GI/Abdominal Exam: Normal Bowel Sounds, Soft, Non-Tender Extremities: Pedal Edema (2+) - Problem List & Annotations (1) Non-STEMI (non-ST elevated myocardial infarction) SNOMED Code(s): 759628355 Code(s): I21.4 - NON-ST ELEVATION (NSTEMI) MYOCARDIAL INFARCTION Status: Acute Current Visit: Yes (2) Atrial fibrillation SNOMED Code(s): 73381461 Code(s): I48.91 - UNSPECIFIED ATRIAL FIBRILLATION Status: Acute Current Visit: No Qualifiers: Atrial fibrillation type: persistent Qualified Code(s): I48.1 - Persistent atrial fibrillation (3) Congestive heart failure SNOMED Code(s): 73369974 Code(s): I50.9 - HEART FAILURE, UNSPECIFIED Status: Acute Current Visit: No - Problem List Review Problem List Initiated/Reviewed/Updated: Yes - My Orders Last 24 Hours: My Active Orders 12/25/17 14:00 Nystatin [Mycostatin] 5 ml PO TID 12/25/17 16:00 cefTRIAXone [Rocephin] 1 gm IVPUSH Q24H 12/25/17 18:00 Rivaroxaban [Xarelto] 15 mg PO WITHDINNER 12/26/17 08:00 Aspirin 81 mg PO WITHBREAKFAST - Plan Plan:: The patient presented with complaints of increased tiredness, shortness of breath, subjective fever, cough with brown sputum. Noted to have significant edema, acute renal failure, elevated troponin. Acute non-ST elevation myocardial infarction Troponin decreased from its peak Monitor on telemetry - no significant arrhythmia Continue aspirin daily Continue metoprolol stopped Weight based heparin resumed xarelto Acute on Chronic congestive heart failure due to diastolic dysfunction Last echo in 2014 showed EF>60%, grade II diastolic dysfunction Will treat with Lasix Hold VIDAL inhibitor due to renal failure use compression stocking upper respiratory tract infection with influenza With no apparent pneumonia on chest x-ray Pending sputum culture, blood cultures Will treat with azithromycin, ceftriaxone tested positive for influenza Continue Tamiflu acute renal failure with Fluid overload Continue IV Lasix hold VIDAL inhibitor improved Follow electrolytes and renal function test Acute COPD exacerbation with chronic hypoxemic respiratory failure Treat with Duoneb scheduled and prn supplement oxygen use pulmicort Atrial fibrillation Rate controlled with metoprolol The patient was on Anticoagulation with xarelto resumed Xarelto - dose adjust to renal failure (GFR 15-50) - 15 mg daily Diabetes Treat with Glimepiride DVT prophylaxis. With xarelto CODE STATUS was discussed with the patient He would like to receive cardiopulmonary resuscitation if needed
--- NOTE | 2017-12-26 13:25 | EKG ---
12/23/2017- RAFAEL POON - EKG per my reading shows atrial fibrillation with controlled ventricular rate. [facility] /[id number]
[2017-12-26] MEDS: cefTRIAXone 1 GM Vial IVPUSH SCH (15:14)
[2017-12-26] MEDS: Azithromycin 500 MG in Sodium Chloride 0.9% 250 ML IV SCH (15:14)
[2017-12-26] MEDS: Rivaroxaban 10 MG Tab PO SCH (17:27)
[2017-12-27] MEDS: Levothyroxine 100 MCG Tab PO SCH (06:34)
[2017-12-27] MEDS: Budesonide 0.5 MG/2 ML Neb Susp NEB SCH ×2 (07:05→17:04)
[2017-12-27] MEDS: Albuterol/Ipratropium 3.0-0.5 MG/3 ML Neb Soln NEB SCH ×3 (07:05→17:00)
[2017-12-27] MEDS: Insulin Aspart 100 Units/ML 3 ML Pen SUBCUT SCH ×3 (08:51→17:03)
[2017-12-27] MEDS: Metoprolol Succinate 50 MG Tab.ER PO SCH (09:04)
[2017-12-27] MEDS: Oseltamivir 30 MG Cap PO SCH (09:04)
[2017-12-27] MEDS: Citalopram 20 MG Tab PO SCH (09:05)
[2017-12-27] MEDS: Nystatin Susp 100,000 Unit/ML 5 ML UD Cup PO SCH ×2 (09:06→13:16)
[2017-12-27] MEDS: Aspirin 81 MG Tab.Chew PO SCH (09:06)
[2017-12-27] MEDS: Furosemide 40 MG/4 ML VIAL IVPUSH SCH ×2 (09:06→13:17)
[2017-12-27] MEDS: Glimepiride 2 MG Tab PO SCH (09:17)
[2017-12-27 11:10] VITALS: BP 134/68
[2017-12-27] MEDS: cefTRIAXone 1 GM Vial IVPUSH SCH ×2 (13:37→17:00)
[2017-12-27] MEDS: Azithromycin 500 MG in Sodium Chloride 0.9% 250 ML IV SCH ×2 (13:39→14:07)
--- NOTE | 2017-12-27 14:16 | PCM.DCSUM1 ---
Discharge Summary - Hospital Course Free Text/Narrative:: 72 yo M admitted with shortness of breath and cough. Treated for CHF exacerbation, bacterial pneumonia and influenza infection. He improved remarkably during hospitalization and is OK for discharge home. During admission, he was noted to have GISSEL, likely prerenal from CHF. This resolved prior to discharge. He will follow up with his PCP within one week. - Discharge Data Discharge Date: 12/27/17 Discharge Disposition: Home, Self-Care 01 Condition: Good - Discharge Diagnosis/Problem(s) (1) Influenza A SNOMED Code(s): 706182098 ICD Code: J10.1 - FLU DUE TO OTH IDENT INFLUENZA VIRUS W OTH RESP MANIFEST Status: Acute Current Visit: Yes (2) CHF (congestive heart failure) SNOMED Code(s): 05691430 ICD Code: I50.9 - HEART FAILURE, UNSPECIFIED Status: Acute Current Visit : No - Patient Instructions Diet: Low Sodium Fluid Restriction: 1500 mL Activity: As Tolerated - Discharge Plan Home Medications: Home Meds Citalopram [Celexa] 20 mg PO DAILY 07/19/15 [History] Sennosides/Docusate Sodium [Stool Softener] 1 tab PO DAILY PRN 07/19/15 [History ] Albuterol [Ventolin HFA] 2 puff INH Q6H PRN 11/20/16 [History] Levothyroxine [Synthroid] 100 mcg PO DAILY 11/20/16 [History] Lisinopril 5 mg PO BEDTIME 11/20/16 [History] Metoprolol Succinate [Toprol XL] 100 mg PO DAILY 01/25/17 [History] Glimepiride [Amaryl] 1 mg PO DAILY 06/07/17 [History] Rivaroxaban [Xarelto] 20 mg PO DAILY 06/07/17 [History] Furosemide [Lasix] 40 mg PO BID 10/30/17 [History] Zolpidem Tartrate [Ambien] 5 mg PO BEDTIME PRN 10/30/17 [History] Patient Handouts: Influenza, Adult, [id number], Heart Failure, [id number] Referrals: PCP,None [Ordering Only Provider] - - General Info Admission Dx/Problem (Free Text: Admission Diagnosis/Problem Admission Diagnosis/Problem Acute myocardial infarction Subjective Update: Feeling well. No chest pain. Shortness of breath is better, No chest pain . - Review of Systems General: Reports: No Symptoms HEENT: Reports: No Symptoms Pulmonary: Reports: No Symptoms, Shortness of Breath, Other Cardiovascular: Reports: No Symptoms Gastrointestinal: Reports: No Symptoms - Patient Data Vitals - Most Recent: Last Vital Signs Temp 37.0 C 12/27/17 11:00 Pulse 80 12/27/17 11:00 Resp 20 12/27/17 11:00 BP 134/68 12/27/17 11:00 Pulse Ox 94 L 12/27/17 11:00 Weight - Most Recent: 110.767 kg I&O - Last 24 hours: Intake & Output 12/26/17 12/27/17 12/27/17 22:59 06:59 14:59 Intake Total 791 1290 Output Total 600 1225 Balance 191 65 Lab Results - Last 24 hrs: Laboratory Results - last 24 hr 12/26/17 12/26/17 12/26/17 Range/Units 11:15 16:54 21:06 POC Glucose 121 H 167 H 152 H (83-110) mg/dl 12/27/17 12/27/17 Range/Units 07:27 11:03 POC Glucose 124 H 183 H (83-110) mg/dl Med Orders - Current: Current Medications Acetaminophen (Tylenol) 650 mg PO Q4H PRN PRN Reason: Pain (Mild 1-3)/fever Albuterol/Ipratropium (Duoneb 3.0-0.5 Mg/3 Ml) 3 ml NEB Q2H PRN PRN Reason: sob Last Admin: 12/24/17 01:43 Dose: 3 ml Albuterol/Ipratropium (Duoneb 3.0-0.5 Mg/3 Ml) 3 ml NEB QIDRT [facility] Last Admin: 12/27/17 12:55 Dose: 3 ml Aspirin (Aspirin) 81 mg PO WITHBREAKFAST [facility] Last Admin: 12/27/17 09:06 Dose: 81 mg Budesonide (Pulmicort) 0.5 mg NEB BIDRT [facility] Last Admin: 12/27/17 07:05 Dose: 0.5 mg Ceftriaxone Sodium (Rocephin) 1 gm IVPUSH Q24H [facility] Last Admin: 12/27/17 13:37 Dose: 1 gm Citalopram Hydrobromide (Celexa) 20 mg PO DAILY [facility] Last Admin: 12/27/17 09:05 Dose: 20 mg Furosemide (Lasix) 40 mg IVPUSH BIDDIURETIC [facility] Last Admin: 12/27/17 13:17 Dose: 40 mg Glimepiride (Amaryl) 1 mg PO DAILY [facility] Last Admin: 12/27/17 09:17 Dose: 1 mg Azithromycin 500 mg/ Sodium (Chloride) 250 mls @ 250 mls/hr IV Q24H [facility] Last Admin: 12/27/17 14:07 Dose: Not Given Insulin Aspart (Novolog) 0 unit SUBCUT TIDAC [facility] PRN Reason: Protocol Last Admin: 12/27/17 12:33 Dose: 2 units Levothyroxine Sodium (Synthroid) 100 mcg PO ACBREAKFAST [facility] Last Admin: 12/27/17 06:34 Dose: 100 mcg Metoprolol Succinate (Toprol Xl) 100 mg PO DAILY [facility] Last Admin: 12/27/17 09:04 Dose: 100 mg Nystatin (Mycostatin) 5 ml PO TID [facility] Last Admin: 12/27/17 13:16 Dose: 5 ml Ondansetron HCl (Zofran Odt) 4 mg PO Q4H PRN PRN Reason: nausea, able to take PO Oseltamivir Phosphate (Tamiflu) 30 mg PO BID [facility] Last Admin: 12/27/17 09:04 Dose: 30 mg Rivaroxaban (Xarelto) 15 mg PO WITHDINNER [facility] Last Admin: 12/26/17 17:27 Dose: 15 mg Sodium Chloride (Saline Flush) 10 ml FLUSH ASDIRECTED PRN PRN Reason: Keep Vein Open Last Admin: 12/26/17 20:59 Dose: 10 ml Zolpidem Tartrate (Ambien) 5 mg PO BEDTIME PRN PRN Reason: Insomnia Last Admin: 12/25/17 23:27 Dose: 5 mg Discontinued Medications Albuterol/Ipratropium (Duoneb 3.0-0.5 Mg/3 Ml) 3 ml NEB ONETIME ONE Stop: 12/23/17 11:38 Last Admin: 12/23/17 11:50 Dose: 3 ml Albuterol/Ipratropium (Duoneb 3.0-0.5 Mg/3 Ml) 3 ml NEB TIDRT [facility] Last Admin: 12/24/17 15:05 Dose: Not Given Aspirin (Aspirin) 324 mg PO ONETIME ONE Stop: 12/23/17 13:50 Last Admin: 12/23/17 13:54 Dose: 324 mg Aspirin (Aspirin) 325 mg PO WITHBREAKFAST [facility] Last Admin: 12/25/17 09:43 Dose: 325 mg Furosemide (Lasix) 80 mg IVPUSH NOW ONE Stop: 12/23/17 12:21 Last Admin: 12/23/17 12:39 Dose: 80 mg Furosemide (Lasix) 40 mg IVPUSH BIDDIURETIC [facility] Last Admin: 12/23/17 16:54 Dose: Not Given Heparin Sodium (Porcine) (Heparin Sodium) Confirm Administered Dose 5,000 units .ROUTE .STK-MED ONE Stop: 12/23/17 14:04 Last Admin: 12/23/17 14:12 Dose: Not Given Heparin Sodium (Porcine) (Heparin Sodium) 4,000 units IVPUSH ONETIME ONE Stop: 12/23/17 14:09 Last Admin: 12/23/17 14:05 Dose: 4,000 units Heparin Sodium/Dextrose (Heparin 25,000 Units In D5w 500 Ml) 25,000 units in 500 mls @ 20 mls/hr IV TITRATE [facility]; 1,000 UNITS/HR PRN Reason: Protocol Last Titration: 12/25/17 10:42 Dose: 0 units/hr, 0 mls/hr Ceftriaxone Sodium 1,000 mg/ (Sodium Chloride) 50 mls @ 100 mls/hr IV Q24H [facility] Last Admin: 12/24/17 15:15 Dose: 100 mls/hr Potassium Chloride (Klor-Con 10) 20 meq PO ONETIME ONE Stop: 12/24/17 09:29 Last Admin: 12/24/17 11:12 Dose: 20 meq *Q Meaningful Use (DIS) - VTE *Q VTE Criteria *Q: - Stroke *Q Stroke Criteria *Q: - AMI *Q AMI Criteria *Q:
[2017-12-27] MEDS: Rivaroxaban 10 MG Tab PO SCH (17:04)
--- NOTE | 2017-12-28 14:55 | PCM.SN ---
- Free Text/Narrative Note: Clinical Document Clarification The following diagnosis were present on admission - Bacterial pneumonia - Influenza infection - COPD exacerbation.
== END 2017-12-27 15:45 | disposition home or self-care (01) | DRG 280 ==
LOC: DL.ED 11:23 → DL.MS 14:16 → UNDOADMIN 14:16 → DL.MS 14:44
PROVIDERS: ADMIT Internal Medicine; ATTEND Internal Medicine
DX: I21.4 Non-ST elevation (NSTEMI) myocardial infarction (principal); I50.33 Acute on chronic diastolic (congestive) heart failure; I48.91 Unspecified atrial fibrillation; J15.9 Unspecified bacterial pneumonia; I13.0 Hypertensive heart and chronic kidney disease with heart failure and stage 1 through stage 4 chronic kidney disease, or unspecified chronic kidney disease; I48.1 Persistent atrial fibrillation; I50.9 Heart failure, unspecified; I25.810 Atherosclerosis of coronary artery bypass graft(s) without angina pectoris; N17.9 Acute kidney failure, unspecified; J44.1 Chronic obstructive pulmonary disease with (acute) exacerbation; J44.0 Chronic obstructive pulmonary disease with (acute) lower respiratory infection; J10.1 Influenza due to other identified influenza virus with other respiratory manifestations; N18.9 Chronic kidney disease, unspecified; Z87.891 Personal history of nicotine dependence; E11.9 Type 2 diabetes mellitus without complications; Z79.84 Long term (current) use of oral hypoglycemic drugs; E66.9 Obesity, unspecified; I25.2 Old myocardial infarction; K21.9 Gastro-esophageal reflux disease without esophagitis; K59.09 Other constipation; E03.9 Hypothyroidism, unspecified; G89.29 Other chronic pain; Z86.73 Personal history of transient ischemic attack (TIA), and cerebral infarction without residual deficits; F32.9 Major depressive disorder, single episode, unspecified; H91.90 Unspecified hearing loss, unspecified ear; H54.7 Unspecified visual loss; Z79.01 Long term (current) use of anticoagulants; Z99.81 Dependence on supplemental oxygen; Z79.899 Other long term (current) drug therapy
CPT/HCPCS: 36415; 71045; 80053; 81001; 82550; 82553; 83605; 83880; 84484 ×2; 85025; 85610; 85730 ×2; 87040 ×2; 87070; 87077; 87186; 87205; 93005; 93010; 94640; 96374; 96375; 99285; A9270; J1644 ×2; J1940; 80048; 82962; 87804; J0456; J0696; J1815-GY; J7050

== ENCOUNTER 2019-02-05 19:02 | Emergency (ER) | payer MEDICARE, OTHER ==
[2019-02-05 19:13] VITALS: BP 103/44
[2019-02-05] MEDS ORDERED: Sodium Chloride 0.9% 10 ML Syringe FLUSH PRN (19:18)
[2019-02-05] MEDS ORDERED: Sodium Chloride 0.9% 1,000 ML IV ONE ×2 (19:20→19:58)
--- NOTE | 2019-02-05 19:22 | EDM.PDOC ---
ED HPI GENERAL MEDICAL PROBLEM - General Chief Complaint: Syncope Stated Complaint: AMBULANCE Time Seen by Provider: 02/05/19 19:22 Source of Information: Reports: Patient, EMS, EMS Notes Reviewed, Family, RN, RN Notes Reviewed History Limitations: Reports: No Limitations - History of Present Illness INITIAL COMMENTS - FREE TEXT/NARRATIVE: Patient to the ER per [facility] with c/o syncopal episodes at home, multiple falls at home over the past week, and pain in the stomach. Patient states this has been going on for the better part of a week. Patient denies N/V/D, denies blood in the stool. Admits to chest pains at times. Patient is a poor historian. Awaiting his to come to the ER for more information. Onset: Gradual - Related Data Allergies Allergy/AdvReac Type Severity Reaction Status Date / Time No Known Allergies Allergy Verified 02/05/19 19:17 Home Meds: Home Meds Citalopram [Celexa] 20 mg PO DAILY 07/19/15 [History] Sennosides/Docusate Sodium [Stool Softener] 1 tab PO DAILY PRN 07/19/15 [History ] Albuterol [Ventolin HFA] 2 puff INH Q6H PRN 11/20/16 [History] Levothyroxine [Synthroid] 100 mcg PO DAILY 11/20/16 [History] Lisinopril 5 mg PO BEDTIME 11/20/16 [History] Metoprolol Succinate [Toprol XL] 100 mg PO DAILY 01/25/17 [History] Glimepiride [Amaryl] 1 mg PO DAILY 06/07/17 [History] Rivaroxaban [Xarelto] 20 mg PO DAILY 06/07/17 [History] Furosemide [Lasix] 40 mg PO BID 10/30/17 [History] Zolpidem Tartrate [Ambien] 5 mg PO BEDTIME PRN 10/30/17 [History] Past Medical History HEENT History: Reports: Cataract, Hard of Hearing, Impaired Vision Other HEENT History: wears glasses for reading only Cardiovascular History: Reports: Afib, Aneurysm, CAD, Heart Failure, Hypertension, [place], SOB on Exertion Respiratory History: Reports: SOB, Other (See Below) Other Respiratory History: wears oxygen at home Gastrointestinal History: Reports: Chronic Constipation, GERD Genitourinary History: Reports: Chronic Renal Insuffiency, Other (See Below) Other Genitourinary History: hx renal cyst Musculoskeletal History: Reports: Back Pain, Chronic, Other (See Below) Other Musculoskeletal History: right hip pain, chronic Neurological History: Reports: CVA Psychiatric History: Reports: Depression Endocrine/Metabolic History: Reports: Diabetes, Type II, Hypothyroidism, Obesity /BMI 30+ Hematologic History: Reports: Anticoagulation Therapy Immunologic History: Reports: None Oncologic (Cancer) History: Reports: None Dermatologic History: Reports: None - Infectious Disease History Infectious Disease History: Reports: C-Difficile, Measles, Mumps - Past Surgical History Head Surgeries/Procedures: Reports: None HEENT Surgical History: Reports: Cataract Surgery Cardiovascular Surgical History: Reports: Aneurysm, Cardiac Ablation, Coronary Artery Bypass GI Surgical History: Reports: Colonoscopy, Other (See Below) Social & Family History - Family History Family Medical History: Noncontributory Neurological: Reports: CVA - Caffeine Use Caffeine Use: Reports: Coffee - Living Situation & Occupation Living situation: Reports: , with Spouse Occupation: Retired ED ROS GENERAL - Review of Systems Review Of Systems: ROS reveals no pertinent complaints other than HPI. ED EXAM, GENERAL - Physical Exam Exam: See Below Exam Limited By: Altered Mental Status General Appearance: Alert, WD/WN, Mild Distress Eye Exam: Bilateral Eye: Normal Inspection Ears: Normal External Exam, Hearing Loss Nose: Normal Inspection Throat/Mouth: Normal Inspection, Normal Voice, No Airway Compromise Head: Atraumatic, Normocephalic, Other (abrasion to the left anterior forehead) Neck: Normal Inspection Respiratory/Chest: No Respiratory Distress, Lungs Clear, Normal Breath Sounds, No Accessory Muscle Use, Chest Non-Tender Cardiovascular: Normal Peripheral Pulses, Bradycardia GI/Abdominal: Normal Bowel Sounds, Soft, No Distention, Tender (generalized) (Male) Exam: Deferred Rectal (Males) Exam: Normal Exam, Normal Rectal Tone. No: Black Stool Back Exam: Normal Inspection, Decreased Range of Motion, Other (11-12 cm scabbed superficial laceration to the back ) Extremities: Normal Inspection, Limited Range of Motion Neurological: Alert, Oriented Psychiatric: Normal Affect, Normal Mood Skin Exam: Warm, Dry, Normal Color, No Rash, Wound/Incision (Scabbed 11-12cm superficial lac to the mid back) Lymphatic: No Adenopathy Course - Vital Signs Last Recorded V/S: Last Vital Signs Temp 97.6 F 02/05/19 19:09 Pulse 60 02/05/19 19:09 Resp 13 02/05/19 19:09 BP 103/44 L 02/05/19 19:09 Pulse Ox 91 L 02/05/19 19:09 - Orders/Labs/Meds Orders: Active Orders 24 hr Category Date Time Status EKG Documentation Completion [RC] STAT Care 02/05/19 19:19 Active Peripheral IV Care [RC] . DIRECTED Care 02/05/19 19:20 Active Chest 1V Frontal [CR] Stat Exams 02/05/19 19:19 Taken Head wo Cont [CT] Stat Exams 02/05/19 19:18 Taken CULTURE BLOOD [BC] Stat Lab 02/05/19 19:13 Received CULTURE BLOOD [BC] Stat Lab 02/05/19 19:48 Received RED BLOOD CELLS LP [BBK] Stat Lab 02/05/19 19:13 Received TYPE AND SCREEN [BBK] Stat Lab 02/05/19 19:13 Received UA RFX [place] AND CULT IF INDIC [URIN] Stat Lab 02/05/19 19:18 Ordered Norepinephrine [Levophed] 4 mg Med 02/05/19 19:30 Active Dextrose 5% in Water 246 ml IV TITRATE Piperacillin/Tazobactam [Zosyn] 3.375 gm Med 02/05/19 20:38 Ordered Sodium Chloride 0.9% [Normal Saline] 100 ml IV ONETIME Potassium Chloride [KCL 20 MEQ in Water 100 ML] 20 meq Med 02/05/19 19:52 Active Premix Bag 1 bag IV ONETIME Sodium Chloride 0.9% [Normal Saline] 1,000 ml Med 02/05/19 19:20 Active IV .BOLUS Sodium Chloride 0.9% [Normal Saline] 1,000 ml Med 02/05/19 19:58 Active IV .BOLUS Sodium Chloride 0.9% [Saline Flush] Med 02/05/19 19:18 Active 10 ml FLUSH ASDIRECTED PRN Vancomycin 1 gm Med 02/05/19 20:38 Ordered Sodium Chloride 0.9% [Normal Saline] 250 ml IV ONETIME Blood Culture x2 Reflex Set [OM.PC] Stat Oth 02/05/19 19:19 Ordered Peripheral IV Insertion Adult [OM.PC] Stat Oth 02/05/19 19:19 Ordered Medication Orders Sodium Chloride (Normal Saline) 1,000 mls @ 200 mls/hr IV .BOLUS ONE Stop: 02/06/19 00:19 Last Admin: 02/05/19 19:36 Dose: 200 mls/hr Norepinephrine Bitartrate 4 mg (/ Dextrose/Water) 250 mls @ 7.5 mls/hr IV TITRATE DIVYA; Protocol Last Titration: 02/05/19 20:29 Dose: 5 mcg/min, 18.75 mls/hr Admin: 02/05/19 19:34 Dose: 2 mcg/min, 7.5 mls/hr Potassium Chloride 20 meq/ (Premix) 100 mls @ 50 mls/hr IV ONETIME ONE Stop: 02/05/19 21:51 Last Admin: 02/05/19 20:04 Dose: 50 mls/hr Sodium Chloride (Normal Saline) 1,000 mls @ 150 mls/hr IV .BOLUS ONE Stop: 02/06/19 02:37 Last Admin: 02/05/19 20:06 Dose: 150 mls/hr Piperacillin Sod/Tazobactam (Sod 3.375 gm/ Sodium Chloride) 100 mls @ 200 mls/ hr IV ONETIME ONE Stop: 02/05/19 21:07 Vancomycin HCl 1 gm/ Sodium (Chloride) 250 mls @ 167 mls/hr IV ONETIME ONE Stop: 02/05/19 22:07 Sodium Chloride (Saline Flush) 10 ml FLUSH ASDIRECTED PRN PRN Reason: Keep Vein Open Last Admin: 02/05/19 20:06 Dose: 10 ml Labs: Laboratory Tests 02/05/19 02/05/19 02/05/19 Range/Units 19:13 19:13 19:13 WBC 13.6 H (5.0-10.0) 10^3/uL RBC 4.93 (4.6-6.2) 10^6/uL Hgb 15.8 D (14.0-18.0) g/dL Hct 44.9 (40.0-54.0) % MCV 91.1 (80-100) fL MCH 32.0 (27.0-34.0) pg MCHC 35.2 H (33.0-35.0) g/dL Plt Count 297 D (150-450) 10^3/uL Neut % (Auto) 76.4 H (42.2-75.2) % Lymph % (Auto) 12.0 L (20.5-50.1) % [place] % (Auto) 10.3 H (2-8) % Eos % (Auto) 1.0 (1.0-3.0) % Baso % (Auto) 0.3 (0.0-1.0) % PT 11.8 D (9.0-12.0) SEC INR 1.2 (0.9-1.2) Sodium 131 L D (135-145) mmol/L Potassium 1.7 L* D (3.6-5.0) mmol/L Chloride 81 L D (101-111) mmol/L Carbon Dioxide 32.0 H (21.0-31.0) mmol/L Anion Gap 19.7 BUN 46 H (7-18) mg/dL Creatinine 2.4 H (0.6-1.3) mg/dL Est Cr Clr Drug Dosing 22.96 mL/min Estimated GFR (MDRD) 26 BUN/Creatinine Ratio 19.16 Glucose 130 H (74-105) mg/dL Lactic Acid (0.5-2.2) mmol/L Calcium 8.3 L (8.4-10.2) mg/dl Magnesium (1.8-2.5) mg/dL Total Bilirubin 1.5 H (0.2-1.0) mg/dL AST 31 (10-42) IU/L ALT 16 (10-60) IU/L Alkaline Phosphatase 77 (42-121) IU/L Troponin I 0.05 H* (0.00-0.02) ng/ml B-Natriuretic Peptide 416 H (0-100) pg/ml Total Protein 6.9 (6.7-8.2) g/dl Albumin 3.7 (3.2-5.5) g/dl Globulin 3.2 Albumin/Globulin Ratio 1.16 02/05/19 02/05/19 Range/Units 19:13 19:13 WBC (5.0-10.0) 10^3/uL RBC (4.6-6.2) 10^6/uL Hgb (14.0-18.0) g/dL Hct (40.0-54.0) % MCV (80-100) fL MCH (27.0-34.0) pg MCHC (33.0-35.0) g/dL Plt Count (150-450) 10^3/uL Neut % (Auto) (42.2-75.2) % Lymph % (Auto) (20.5-50.1) % [place] % (Auto) (2-8) % Eos % (Auto) (1.0-3.0) % Baso % (Auto) (0.0-1.0) % PT (9.0-12.0) SEC INR (0.9-1.2) Sodium (135-145) mmol/L Potassium (3.6-5.0) mmol/L Chloride (101-111) mmol/L Carbon Dioxide (21.0-31.0) mmol/L Anion Gap BUN (7-18) mg/dL Creatinine (0.6-1.3) mg/dL Est Cr Clr Drug Dosing mL/min Estimated GFR (MDRD) BUN/Creatinine Ratio Glucose (74-105) mg/dL Lactic Acid 3.0 H (0.5-2.2) mmol/L Calcium (8.4-10.2) mg/dl Magnesium 2.2 (1.8-2.5) mg/dL Total Bilirubin (0.2-1.0) mg/dL AST (10-42) IU/L ALT (10-60) IU/L Alkaline Phosphatase (42-121) IU/L Troponin I (0.00-0.02) ng/ml B-Natriuretic Peptide (0-100) pg/ml Total Protein (6.7-8.2) g/dl Albumin (3.2-5.5) g/dl Globulin Albumin/Globulin Ratio Hemoccult: Negative Meds: Medications Generic Name Dose Route Start Last Admin Trade Name Freq PRN Reason Stop Dose Admin Sodium Chloride 1,000 mls @ 200 mls/hr 02/05/19 19:20 02/05/19 19:36 Normal Saline IV 02/06/19 00:19 200 mls/hr .BOLUS ONE Administration Norepinephrine Bitartrate 4 mg 250 mls @ 7.5 mls/hr 02/05/19 19:30 02/05/19 20:29 / Dextrose/Water IV 5 mcg/min TITRATE DIVYA 18.75 mls/hr Titration Protocol 2 MCG/MIN Potassium Chloride 20 meq/ 100 mls @ 50 mls/hr 02/05/19 19:52 02/05/19 20:04 Premix IV 02/05/19 21:51 50 mls/hr ONETIME ONE Administration Sodium Chloride 1,000 mls @ 150 mls/hr 02/05/19 19:58 02/05/19 20:06 Normal Saline IV 02/06/19 02:37 150 mls/hr .BOLUS ONE Administration Piperacillin Sod/Tazobactam 100 mls @ 200 mls/hr 02/05/19 20:38 Sod 3.375 gm/ Sodium Chloride IV 02/05/19 21:07 ONETIME ONE Vancomycin HCl 1 gm/ Sodium 250 mls @ 167 mls/hr 02/05/19 20:38 Chloride IV 02/05/19 22:07 ONETIME ONE Sodium Chloride 10 ml 02/05/19 19:18 02/05/19 20:06 Saline Flush FLUSH 10 ml ASDIRECTED PRN Administration Keep Vein Open - Radiology Interpretation Free Text/Narrative:: Head CT: FINDINGS: Brain: Age-related involutional changes and chronic microvascular ischemic disease. No evidence for acute transcortical infarct. No mass effect or midline shift. No extra- axial collection. No acute intracranial hemorrhage. Basal cisterns are patent. Ventricles: Normal. No ventriculomegaly. Bones/joints: Unremarkable. No acute fracture. Sinuses: Visualized sinuses are unremarkable. No acute sinusitis. Mastoid air cells: Visualized mastoid air cells are unremarkable. No mastoid effusion. Orbits: Bilateral cataract surgery. Soft tissues: Unremarkable. IMPRESSION: No evidence for acute transcortical infarct, acute intracranial hemorrhage, or mass effect. Thank you for allowing us to participate in the care of your patient. Dictated and Authenticated by: Ramiro Cosme MD 02/05/2019 7:54 PM Central Time ([place] & [place]) Chest xray: FINDINGS: Lungs: Clear lungs. Pleural space: No pneumothorax. No sizable pleural effusion. Heart/Mediastinum: CABG. Mild cardiomegaly. Bones/joints: Sternotomy. IMPRESSION: Clear lungs. Thank you for allowing us to participate in the care of your patient. Dictated and Authenticated by: Ramiro Cosme MD 02/05/2019 7:39 PM Central Time ([place] & [place]) See rad report - Re-Assessments/Exams Free Text/Narrative Re-Assessment/Exam: 02/05/19 20:46 Discussed patient case with Dr. Whatley who agreed to accept the patient for admission to the ICU. Departure - Departure Time of Disposition: 20:41 Disposition: DC/Tfer to Acute Hospital 02 Condition: Poor Clinical Impression: Hypokalemia, Elevated troponin, First degree AV block, Bradycardia Syncope Qualifiers: Syncope type: unspecified Qualified Code(s): R55 - Syncope and collapse Congestive heart failure Qualifiers: Heart failure type: unspecified Heart failure chronicity: unspecified Qualified Code(s): I50.9 - Heart failure, unspecified - Discharge Information *PRESCRIPTION DRUG MONITORING PROGRAM REVIEWED*: No *COPY OF PRESCRIPTION DRUG MONITORING REPORT IN PATIENT EMI: No Referrals: Mela Lopez MD [Primary Care Provider] - Forms: ED Department Discharge, Interfacility Transfer EMTALA - My Orders Last 24 Hours: My Active Orders 02/05/19 19:13 CULTURE BLOOD [BC] Stat RED BLOOD CELLS LP [BBK] Stat TYPE AND SCREEN [BBK] Stat 02/05/19 19:18 Head wo Cont [CT] Stat UA RFX [place] AND CULT IF INDIC [URIN] Stat Sodium Chloride 0.9% [Saline Flush] 10 ml FLUSH ASDIRECTED PRN 02/05/19 19:19 EKG Documentation Completion [RC] STAT Chest 1V Frontal [CR] Stat Blood Culture x2 Reflex Set [OM.PC] Stat Peripheral IV Insertion Adult [OM.PC] Stat 02/05/19 19:20 Peripheral IV Care [RC] . DIRECTED Sodium Chloride 0.9% [Normal Saline] 1,000 ml IV .BOLUS 02/05/19 19:30 Norepinephrine [Levophed] 4 mg Dextrose 5% in Water 246 ml IV TITRATE 02/05/19 19:48 CULTURE BLOOD [BC] Stat 02/05/19 19:52 Potassium Chloride [KCL 20 MEQ in Water 100 ML] 20 meq Premix Bag 1 bag IV ONETIME 02/05/19 19:58 Sodium Chloride 0.9% [Normal Saline] 1,000 ml IV .BOLUS 02/05/19 20:38 Piperacillin/Tazobactam [Zosyn] 3.375 gm Sodium Chloride 0.9% [Normal Saline] 100 ml IV ONETIME Vancomycin 1 gm Sodium Chloride 0.9% [Normal Saline] 250 ml IV ONETIME - Assessment/Plan Last 24 Hours: My Active Orders 02/05/19 19:13 CULTURE BLOOD [BC] Stat RED BLOOD CELLS LP [BBK] Stat TYPE AND SCREEN [BBK] Stat 02/05/19 19:18 Head wo Cont [CT] Stat UA RFX [place] AND CULT IF INDIC [URIN] Stat Sodium Chloride 0.9% [Saline Flush] 10 ml FLUSH ASDIRECTED PRN 02/05/19 19:19 EKG Documentation Completion [RC] STAT Chest 1V Frontal [CR] Stat Blood Culture x2 Reflex Set [OM.PC] Stat Peripheral IV Insertion Adult [OM.PC] Stat 02/05/19 19:20 Peripheral IV Care [RC] . DIRECTED Sodium Chloride 0.9% [Normal Saline] 1,000 ml IV .BOLUS 02/05/19 19:30 Norepinephrine [Levophed] 4 mg Dextrose 5% in Water 246 ml IV TITRATE 02/05/19 19:48 CULTURE BLOOD [BC] Stat 02/05/19 19:52 Potassium Chloride [KCL 20 MEQ in Water 100 ML] 20 meq Premix Bag 1 bag IV ONETIME 02/05/19 19:58 Sodium Chloride 0.9% [Normal Saline] 1,000 ml IV .BOLUS 02/05/19 20:38 Piperacillin/Tazobactam [Zosyn] 3.375 gm Sodium Chloride 0.9% [Normal Saline] 100 ml IV ONETIME Vancomycin 1 gm Sodium Chloride 0.9% [Normal Saline] 250 ml IV ONETIME
[2019-02-05] MEDS ORDERED: Norepinephrine 4 MG in Dextrose 5% in Water 246 ML IV SCH ×2 (19:30)
[2019-02-05 19:51] LABS: ANION GAP 19.7
[2019-02-05] MEDS ORDERED: Potassium Chloride 20 MEQ in Premix Bag 1 BAG IV ONE (19:52)
[2019-02-05] MEDS ORDERED: Piperacillin/Tazobactam 3.375 GM in Sodium Chloride 0.9% 100 ML IV ONE (20:38)
== END 2019-02-05 21:14 ==
LOC: DL.ED 19:02
DX: R55 Syncope and collapse (principal); I13.0 Hypertensive heart and chronic kidney disease with heart failure and stage 1 through stage 4 chronic kidney disease, or unspecified chronic kidney disease; I50.9 Heart failure, unspecified; N18.9 Chronic kidney disease, unspecified; E87.6 Hypokalemia; R79.89 Other specified abnormal findings of blood chemistry; I44.0 Atrioventricular block, first degree; R00.1 Bradycardia, unspecified; E11.22 Type 2 diabetes mellitus with diabetic chronic kidney disease; E66.9 Obesity, unspecified; Z79.899 Other long term (current) drug therapy
CPT/HCPCS: 36415; 70450; 71045; 80053; 82272; 83605; 83735; 83880; 84484; 85025; 85610; 86850; 86900; 86901; 86920; 86922; 87040; 93005; 96365; 96366; 96368; 96375; 99285; J2543; J3370; J3480; J7030; J7050; J7060

== ENCOUNTER 2019-03-26 | Emergency (ER) | payer MEDICARE, OTHER ==
[2019-03-26 00:10] VITALS: BP 89/39
[2019-03-26] MEDS ORDERED: Sodium Chloride 0.9% 1,000 ML IV ONE (00:13)
[2019-03-26] MEDS ORDERED: HYDROmorphone 1 MG/ML Syringe IVPUSH ONE ×2 (00:15→01:09)
--- NOTE | 2019-03-26 00:22 | EDM.PDOC ---
ED HPI GENERAL MEDICAL PROBLEM - General Chief Complaint: Lower Extremity Injury/Pain Stated Complaint: AMBULANCE-FALL Time Seen by Provider: 03/26/19 00:05 Source of Information: Reports: Patient, EMS, RN - History of Present Illness INITIAL COMMENTS - FREE TEXT/NARRATIVE: Ground fall at home in garage. See original paper document as EMR down. Right Hip Pain Score (Numeric/FACES): 7 - Related Data Allergies Allergy/AdvReac Type Severity Reaction Status Date / Time No Known Allergies Allergy Verified 02/05/19 19:17 Home Meds: Home Meds Citalopram [Celexa] 20 mg PO DAILY 07/19/15 [History] Sennosides/Docusate Sodium [Stool Softener] 1 tab PO DAILY PRN 07/19/15 [History ] Albuterol [Ventolin HFA] 2 puff INH Q6H PRN 11/20/16 [History] Levothyroxine [Synthroid] 100 mcg PO DAILY 11/20/16 [History] Lisinopril 5 mg PO BEDTIME 11/20/16 [History] Metoprolol Succinate [Toprol XL] 100 mg PO DAILY 01/25/17 [History] Glimepiride [Amaryl] 1 mg PO DAILY 06/07/17 [History] Rivaroxaban [Xarelto] 20 mg PO DAILY 06/07/17 [History] Furosemide [Lasix] 40 mg PO BID 10/30/17 [History] Zolpidem Tartrate [Ambien] 5 mg PO BEDTIME PRN 10/30/17 [History] Past Medical History HEENT History: Reports: Cataract, Hard of Hearing, Impaired Vision Other HEENT History: wears glasses for reading only Cardiovascular History: Reports: Afib, Aneurysm, CAD, Heart Failure, Hypertension, [place], SOB on Exertion Respiratory History: Reports: SOB, Other (See Below) Other Respiratory History: wears oxygen at home Gastrointestinal History: Reports: Chronic Constipation, GERD Genitourinary History: Reports: Chronic Renal Insuffiency, Other (See Below) Other Genitourinary History: hx renal cyst Musculoskeletal History: Reports: Back Pain, Chronic, Other (See Below) Other Musculoskeletal History: right hip pain, chronic Neurological History: Reports: CVA Psychiatric History: Reports: Depression Endocrine/Metabolic History: Reports: Diabetes, Type II, Hypothyroidism, Obesity /BMI 30+ Hematologic History: Reports: Anticoagulation Therapy Immunologic History: Reports: None Oncologic (Cancer) History: Reports: None Dermatologic History: Reports: None - Infectious Disease History Infectious Disease History: Reports: C-Difficile, Measles, Mumps - Past Surgical History Head Surgeries/Procedures: Reports: None HEENT Surgical History: Reports: Cataract Surgery Cardiovascular Surgical History: Reports: Aneurysm, Cardiac Ablation, Coronary Artery Bypass GI Surgical History: Reports: Colonoscopy, Other (See Below) Social & Family History - Family History Family Medical History: Noncontributory Neurological: Reports: CVA - Tobacco Use Smoking Status *Q: Unknown Ever Smoked - Caffeine Use Caffeine Use: Reports: Coffee - Alcohol Use Days Per Week of Alcohol Use: 7 Number of Drinks Per Day: 2 Total Drinks Per Week: 14 Date of Last Drink: 03/25/19 - Recreational Drug Use Recreational Drug Use: No - Living Situation & Occupation Living situation: Reports: , with Spouse Occupation: Retired Review of Systems - Review of Systems Review Of Systems: See Below (see [paper) ED EXAM, GENERAL - Physical Exam Exam: See Below (see original paper as EMR was down) Course - Vital Signs Last Recorded V/S: Last Vital Signs Temp 98.2 F 03/26/19 00:08 Pulse 51 L 03/26/19 00:08 Resp 18 03/26/19 00:08 BP 89/39 L 03/26/19 00:08 Pulse Ox 83 L 03/26/19 00:08 - Orders/Labs/Meds Labs: Laboratory Tests 03/26/19 03/26/19 03/26/19 Range/Units 00:12 00:12 00:12 WBC 15.3 H (5.0-10.0) 10^3/uL RBC 4.65 (4.6-6.2) 10^6/uL Hgb 14.6 (14.0-18.0) g/dL Hct 43.1 (40.0-54.0) % MCV 92.7 (80-100) fL MCH 31.4 (27.0-34.0) pg MCHC 33.9 (33.0-35.0) g/dL Plt Count 246 (150-450) 10^3/uL Neut % (Auto) 86.7 H (42.2-75.2) % Lymph % (Auto) 7.7 L (20.5-50.1) % [place] % (Auto) 5.0 (2-8) % Eos % (Auto) 0.5 L (1.0-3.0) % Baso % (Auto) 0.1 (0.0-1.0) % PT 14.2 H (9.0-12.0) SEC INR 1.4 H (0.9-1.2) Sodium 136 (135-145) mmol/L Potassium 2.3 L* (3.6-5.0) mmol/L Chloride 90 L (101-111) mmol/L Carbon Dioxide 31.0 (21.0-31.0) mmol/L Anion Gap 17.3 BUN 22 H (7-18) mg/dL Creatinine 1.3 (0.6-1.3) mg/dL Est Cr Clr Drug Dosing 42.38 mL/min Estimated GFR (MDRD) 53 BUN/Creatinine Ratio 16.92 Glucose 131 H (74-105) mg/dL Calcium 8.0 L (8.4-10.2) mg/dl Total Bilirubin 1.6 H (0.2-1.0) mg/dL AST 22 (10-42) IU/L ALT 13 (10-60) IU/L Alkaline Phosphatase 76 (42-121) IU/L Creatine Kinase (26-174) IU/L Troponin I 0.02 (0.00-0.02) ng/ml B-Natriuretic Peptide 198 H (0-100) pg/ml Total Protein 7.0 (6.7-8.2) g/dl Albumin 3.9 (3.2-5.5) g/dl Globulin 3.1 Albumin/Globulin Ratio 1.26 Ethyl Alcohol 30 mg/dL 03/26/ Range/Units 00:12 WBC (5.0-10.0) 10^3/uL RBC (4.6-6.2) 10^6/uL Hgb (14.0-18.0) g/dL Hct (40.0-54.0) % MCV (80-100) fL MCH (27.0-34.0) pg MCHC (33.0-35.0) g/dL Plt Count (150-450) 10^3/uL Neut % (Auto) (42.2-75.2) % Lymph % (Auto) (20.5-50.1) % [place] % (Auto) (2-8) % Eos % (Auto) (1.0-3.0) % Baso % (Auto) (0.0-1.0) % PT (9.0-12.0) SEC INR (0.9-1.2) Sodium (135-145) mmol/L Potassium (3.6-5.0) mmol/L Chloride (101-111) mmol/L Carbon Dioxide (21.0-31.0) mmol/L Anion Gap BUN (7-18) mg/dL Creatinine (0.6-1.3) mg/dL Est Cr Clr Drug Dosing mL/min Estimated GFR (MDRD) BUN/Creatinine Ratio Glucose (74-105) mg/dL Calcium (8.4-10.2) mg/dl Total Bilirubin (0.2-1.0) mg/dL AST (10-42) IU/L ALT (10-60) IU/L Alkaline Phosphatase (42-121) IU/L Creatine Kinase 91 (26-174) IU/L Troponin I (0.00-0.02) ng/ml B-Natriuretic Peptide (0-100) pg/ml Total Protein (6.7-8.2) g/dl Albumin (3.2-5.5) g/dl Globulin Albumin/Globulin Ratio Ethyl Alcohol mg/dL Meds: Medications Discontinued Medications Generic Name Dose Route Start Last Admin Trade Name Freq PRN Reason Stop Dose Admin Hydromorphone HCl 0.5 mg 03/26/19 00:15 03/26/19 00:24 Dilaudid IVPUSH 03/26/19 00:16 0.5 mg ONETIME ONE Administration Hydromorphone HCl 1 mg 03/26/19 01:09 03/26/19 01:14 Dilaudid IVPUSH 03/26/19 01:10 1 mg ONETIME ONE Administration Sodium Chloride 1,000 mls @ 200 mls/hr 03/26/19 00:13 03/26/19 00:27 Normal Saline IV 03/26/19 05:12 200 mls/hr .BOLUS ONE Administration Potassium Chloride 20 meq/ 100 mls @ 50 mls/hr 03/26/19 01:01 03/26/19 01:15 Premix IV 03/26/19 03:00 50 mls/hr ONETIME ONE Administration Potassium Chloride 20 meq 03/26/19 00:58 03/26/19 01:05 Klor-Con 10 PO 03/26/19 00:59 Not Given ONETIME ONE Departure - Departure Time of Disposition: 01:30 Disposition: DC/Tfer to Acute Hospital 02 Condition: Undetermined Clinical Impression: Fracture of neck of femur, hip, Chronic atrial fibrillation, Hypokalemia, Chronic anticoagulation Fall at home Qualifiers: Encounter type: initial encounter Qualified Code(s): W19.XXXA - Unspecified fall, initial encounter; Y92.009 - Unspecified place in unspecified non- institutional (private) residence as the place of occurrence of the external cause - Discharge Information Referrals: PCP,Unobtain [Primary Care Provider] - Forms: ED Department Discharge
[2019-03-26 00:44] LABS: ANION GAP 17.3
[2019-03-26] MEDS ORDERED: Potassium Chloride 10 MEQ Tab.ER PO ONE (00:58)
[2019-03-26] MEDS ORDERED: Potassium Chloride 20 MEQ in Premix Bag 1 BAG IV ONE (01:01)
== END 2019-03-26 02:08 ==
LOC: DL.ED
DX: S72.001A Fracture of unspecified part of neck of right femur, initial encounter for closed fracture (principal); I48.2 Chronic atrial fibrillation; I13.0 Hypertensive heart and chronic kidney disease with heart failure and stage 1 through stage 4 chronic kidney disease, or unspecified chronic kidney disease; I50.9 Heart failure, unspecified; E11.22 Type 2 diabetes mellitus with diabetic chronic kidney disease; N18.9 Chronic kidney disease, unspecified; E03.9 Hypothyroidism, unspecified; I25.10 Atherosclerotic heart disease of native coronary artery without angina pectoris; Z79.84 Long term (current) use of oral hypoglycemic drugs; W18.39XA Other fall on same level, initial encounter; Z79.899 Other long term (current) drug therapy; Y92.009 Unspecified place in unspecified non-institutional (private) residence as the place of occurrence of the external cause; Z79.01 Long term (current) use of anticoagulants
CPT/HCPCS: 36415; 51702; 70450; 72192; 80053; 82550; 83880; 84484; 85025; 85610; 93005; 96361; 96365; 96375; 96376; 99284; 99285-25; A4217; G0480; J1170; J3480; J7030

== ENCOUNTER 2021-05-21 14:56 | Emergency (ER) | payer MEDICARE, OTHER ==
[2021-05-21 15:48] VITALS: BP 144/86; PULSE 74
--- NOTE | 2021-05-21 16:43 | EDM.PDOC ---
ED HPI GENERAL MEDICAL PROBLEM - General Chief Complaint: Skin Complaint Stated Complaint: PATIENT BLEEDING FROM FACE Time Seen by Provider: 05/21/21 16:25 Source of Information: Reports: Patient History Limitations: Reports: No Limitations - History of Present Illness INITIAL COMMENTS - FREE TEXT/NARRATIVE: This 85 yo male patient was brought to the ED from the alf due to bleeding from a surgical wound to his right face. The patient did have a biopsy of the area today and is on a blood thinner. When the patient was in the alf, the nursing staff noticed there was some blood coming from the surgical site. As the applied pressure, they noticed additional blood coming for the dressing. Upon arrival in the ED, the patient no longer had active bleeding from the wound. The dressing was saturated with blood, but the dressings were not removed during this visit. Onset: Today Location: Reports: Face (right side surgical wound) Severity: Mild Improves with: Reports: None Worsens with: Reports: None Context: Reports: Other - Related Data Allergies Allergy/AdvReac Type Severity Reaction Status Date / Time No Known Allergies Allergy Verified 05/21/21 15:50 Home Meds: Home Meds Citalopram [Celexa] 20 mg PO DAILY 07/19/15 [History] Sennosides/Docusate Sodium [Stool Softener] 1 tab PO DAILY PRN 07/19/15 [History] Albuterol [Ventolin HFA] 2 puff INH Q6H PRN 11/20/16 [History] Levothyroxine [Synthroid] 100 mcg PO DAILY 11/20/16 [History] Lisinopril 5 mg PO BEDTIME 11/20/16 [History] Metoprolol Succinate [Toprol XL] 100 mg PO DAILY 01/25/17 [History] Glimepiride [Amaryl] 1 mg PO DAILY 06/07/17 [History] Rivaroxaban [Xarelto] 20 mg PO DAILY 06/07/17 [History] Furosemide [Lasix] 40 mg PO BID 10/30/17 [History] Zolpidem Tartrate [Ambien] 5 mg PO BEDTIME PRN 10/30/17 [History] Past Medical History HEENT History: Reports: Cataract, Hard of Hearing, Impaired Vision Other HEENT History: wears glasses for reading only Cardiovascular History: Reports: Afib, Aneurysm, CAD, Heart Failure, Hypertension, [place], SOB on Exertion Respiratory History: Reports: SOB, Other (See Below) Other Respiratory History: wears oxygen at home Gastrointestinal History: Reports: Chronic Constipation, GERD Genitourinary History: Reports: Chronic Renal Insuffiency, Other (See Below) Other Genitourinary History: hx renal cyst Musculoskeletal History: Reports: Back Pain, Chronic, Other (See Below) Other Musculoskeletal History: right hip pain, chronic Neurological History: Reports: CVA Psychiatric History: Reports: Depression Endocrine/Metabolic History: Reports: Diabetes, Type II, Hypothyroidism, Obes ity/BMI 30+ Hematologic History: Reports: Anticoagulation Therapy Immunologic History: Reports: None Oncologic (Cancer) History: Reports: None Dermatologic History: Reports: None - Infectious Disease History Infectious Disease History: Reports: C-Difficile, Measles, Mumps - Past Surgical History Head Surgeries/Procedures: Reports: None HEENT Surgical History: Reports: Cataract Surgery Cardiovascular Surgical History: Reports: Aneurysm, Cardiac Ablation, Coronary Artery Bypass Other Cardiovascular Surgeries/Procedures: cardioversion Respiratory Surgical History: Reports: None GI Surgical History: Reports: Colonoscopy, Other (See Below) Other GI Surgeries/Procedures: abdominal aaortic aneurysm repair Endocrine Surgical History: Reports: None Social & Family History - Family History Family Medical History: No Pertinent Family History Neurological: Reports: CVA - Tobacco Use Tobacco Use Status *Q: Never Tobacco User - Caffeine Use Caffeine Use: Reports: Coffee - Recreational Drug Use Recreational Drug Use: No - Living Situation & Occupation Living situation: Reports: , with Spouse Occupation: Retired ED ROS GENERAL - Review of Systems Review Of Systems: Comprehensive ROS is negative, except as noted in HPI. ED EXAM, SKIN/RASH Exam: See Below Exam Limited By: No Limitations General Appearance: Alert, WD/WN, No Apparent Distress Eye Exam: Bilateral Eye: EOMI, PERRL Ears: Other (The patient had some blood in the right ear canal) Nose: Normal Inspection, Normal Mucosa, No Blood Throat/Mouth: Normal Inspection, Normal Lips, Normal Teeth, Normal Gums, Normal Oropharynx, Normal Voice, No Airway Compromise Neck: Normal Inspection, Supple, Non-Tender, Full Range of Motion Respiratory/Chest: No Respiratory Distress, Lungs Clear, Normal Breath Sounds, No Accessory Muscle Use, Chest Non-Tender Cardiovascular: Normal Peripheral Pulses, Regular Rate, Rhythm, No Edema, No Gallop, No JVD, No Murmur, No Rub (Male) Exam: Deferred Rectal (Males) Exam: Deferred Skin: Wound/Incision (No active bleeding from the wound dressing, but the dressing is saturated with blood. The dressing and packing were not removed during the visit in order to avoid increased bleeding and blood loss. ) Location, Skin: Face Lymphatic: No Adenopathy Course - Vital Signs Last Recorded V/S: Last Vital Signs Temp 98.1 F 05/21/21 15:47 Pulse 74 05/21/21 15:47 Resp 16 05/21/21 15:47 BP 144/86 H 05/21/21 15:47 Pulse Ox 92 L 05/21/21 15:47 Departure - Departure Time of Disposition: 16:47 Disposition: Home, Self-Care 01 Condition: Fair Clinical Impression: Post-op bleeding Qualifiers: Surgical complication system/body Area: skin Procedure type: dermatologic Qualified Code(s): L76.21 - Postprocedural hemorrhage of skin and subcutaneous tissue following a dermatologic procedure - Discharge Information *PRESCRIPTION DRUG MONITORING PROGRAM REVIEWED*: Not Applicable *COPY OF PRESCRIPTION DRUG MONITORING REPORT IN PATIENT EMI: Not Applicable Care Plan Goals: The patient and his were advised of the examination results during the visit. The patient was encouraged to avoid itching or touching the area of concern. If the patient has any additional symptoms or concerns, the patient should either return to the emergency department or visit his primary care facility. Sepsis Event Note (ED) - Evaluation Sepsis Screening Result: No Definite Risk - Focused Exam Vital Signs: Vital Signs Temp Pulse Resp BP Pulse Ox 05/21/21 15:47 98.1 F 74 16 144/86 H 92 L
== END 2021-05-21 17:00 | disposition home or self-care (01) ==
LOC: DL.ED 14:56
DX: L76.21 Postprocedural hemorrhage of skin and subcutaneous tissue following a dermatologic procedure (principal); I48.91 Unspecified atrial fibrillation; I13.0 Hypertensive heart and chronic kidney disease with heart failure and stage 1 through stage 4 chronic kidney disease, or unspecified chronic kidney disease; E11.22 Type 2 diabetes mellitus with diabetic chronic kidney disease; N18.9 Chronic kidney disease, unspecified; I50.9 Heart failure, unspecified; E03.9 Hypothyroidism, unspecified; I25.10 Atherosclerotic heart disease of native coronary artery without angina pectoris; I25.2 Old myocardial infarction; E66.9 Obesity, unspecified; Z68.30 Body mass index [BMI] 30.0-30.9, adult; Z79.899 Other long term (current) drug therapy
CPT/HCPCS: 99282; 99283

== ENCOUNTER 2022-07-28 00:02 | Emergency (ER) | payer MEDICARE, OTHER ==
[2022-07-28 00:53] LABS: ANION GAP 10.4 mEq/L (7-13); CHLORIDE,CL 99 mmol/L (98-107); SODIUM,NA 139 mmol/L (136-145)
[2022-07-28 00:54] LABS: ESTIMATED GFR 58 mL/min (>=60)
== END 2022-07-28 02:08 ==
LOC: DL.ED 00:02
DX: S61.412A Laceration without foreign body of left hand, initial encounter (principal); S00.03XA Contusion of scalp, initial encounter; F03.90 Unspecified dementia, unspecified severity, without behavioral disturbance, psychotic disturbance, mood disturbance, and anxiety; I48.91 Unspecified atrial fibrillation; I25.10 Atherosclerotic heart disease of native coronary artery without angina pectoris; I13.0 Hypertensive heart and chronic kidney disease with heart failure and stage 1 through stage 4 chronic kidney disease, or unspecified chronic kidney disease; I50.9 Heart failure, unspecified; I25.2 Old myocardial infarction; E11.22 Type 2 diabetes mellitus with diabetic chronic kidney disease; N18.9 Chronic kidney disease, unspecified; E03.9 Hypothyroidism, unspecified; E66.9 Obesity, unspecified; Z86.73 Personal history of transient ischemic attack (TIA), and cerebral infarction without residual deficits; Z68.30 Body mass index [BMI] 30.0-30.9, adult; W22.09XA Striking against other stationary object, initial encounter; Y92.129 Unspecified place in nursing home as the place of occurrence of the external cause
CPT/HCPCS: 36415; 70450; 72125; 72192; 80053; 83605; 85025; 85610; 87040; 99284

== ENCOUNTER 2023-08-20 04:43 | Emergency (ER) | payer MEDICARE, OTHER ==
[2023-08-20] MEDS ORDERED: Sodium Chloride 0.9% 10 ML Syringe FLUSH PRN (04:48)
[2023-08-20 05:08] LABS: BASOPHILS PERCENT AUTO 0.4 % (0.0-1.0); HEMATOCRIT 40.2 % (40.0-54.0); HEMOGLOBIN 12.7 g/dL (14.0-18.0); LYMPHOCYTES PERCENT AUTO 17.8 % (20.5-50.1); MEAN CORPUSCULAR HEMOGLOBIN 28.5 pg (27.0-34.0); MEAN CORPUSCULAR HGB CONC 31.6 g/dL (33.0-35.0); MEAN CORPUSCULAR VOLUME 90.3 fL (80-100); MONOCYTES PERCENT AUTO 13.1 % (2-8); NEUTROPHILS PERCENT AUTO 64.7 % (42.2-75.2); PLATELET COUNT,PLT 225 10^3/uL (150-450); RED BLOOD CELL COUNT 4.45 10^6/uL (4.6-6.2); WHITE BLOOD CELL COUNT,WBC 7.9 10^3/uL (5.0-10.0)
[2023-08-20 05:10] LABS: APPEARANCE,URINE CLEAR (CLEAR); BILIRUBIN,URINE NEGATIVE (NEGATIVE); COLOR,URINE YELLOW (YELLOW); GLUCOSE,URINE NEGATIVE (NEGATIVE); KETONES,URINE NEGATIVE (NEGATIVE); LEUKOCYTE ESTERASE,URINE NEGATIVE (NEGATIVE); NITRITE,URINE NEGATIVE (NEGATIVE); OCCULT BLOOD,URINE NEGATIVE (NEGATIVE); PH,URINE 7.5 (5.0-9.0); PROTEIN,URINE NEGATIVE (NEGATIVE); UROBILINOGEN,URINE 0.2 mg/dL (0.2-1.0)
[2023-08-20 05:18] LABS: INR 1.1 (0.9-1.2); PROTHROMBIN TIME 11.2 SEC (9.0-12.0)
[2023-08-20 05:22] LABS: A/G RATIO 0.8; ALANINE AMINOTRANSFERASE,ALT 16 U/L (16-63); ALBUMIN 3.5 g/dL (3.4-5.0); ALKALINE PHOSPHATASE 86 U/L (46-116); ANION GAP 12.2 mEq/L (7-13); ASPARTATE AMNIOTRANSFERASE,AST 19 U/L (15-37); BILIRUBIN TOTAL 0.7 mg/dL (0.2-1.0); BLOOD UREA NITROGEN,BUN 40 mg/dL (7-18); BUN/CREATININE RATIO 20.4 (No establ ref range); C-REACTIVE PROTEIN 3.21 ng/dL (<=0.30); CALCIUM 8.8 mg/dL (8.5-10.1); CARBON DIOXIDE,CO2 31 mmol/L (21-32); CHLORIDE,CL 102 mmol/L (98-107); CREATININE 1.96 mg/dL (0.70-1.30); GLUCOSE RANDOM 88 mg/dL (70-99); MAGNESIUM 2.3 mg/dL (1.8-2.4); POTASSIUM,K 4.2 mmol/L (3.5-5.1); PROTEIN TOTAL,TP 7.7 g/dL (6.4-8.2); SODIUM,NA 141 mmol/L (136-145)
[2023-08-20 05:24] LABS: ESTIMATED GFR 33 mL/min (>=60); LACTIC ACID 0.9 mmol/L (0.4-2.0)
[2023-08-20 05:30] VITALS: BP 127/56; PULSE 66
[2023-08-20] MEDS ORDERED: Sodium Chloride 0.9% 500 ML IV SCH (05:30)
== END 2023-08-20 07:10 | disposition home or self-care (01) ==
LOC: DL.ED 04:43
DX: F03.90 Unspecified dementia, unspecified severity, without behavioral disturbance, psychotic disturbance, mood disturbance, and anxiety (principal); I25.10 Atherosclerotic heart disease of native coronary artery without angina pectoris; I13.0 Hypertensive heart and chronic kidney disease with heart failure and stage 1 through stage 4 chronic kidney disease, or unspecified chronic kidney disease; I50.9 Heart failure, unspecified; E11.22 Type 2 diabetes mellitus with diabetic chronic kidney disease; N18.9 Chronic kidney disease, unspecified; E03.9 Hypothyroidism, unspecified; E66.9 Obesity, unspecified; Z68.30 Body mass index [BMI] 30.0-30.9, adult; Z79.899 Other long term (current) drug therapy; W01.198A Fall on same level from slipping, tripping and stumbling with subsequent striking against other object, initial encounter
CPT/HCPCS: 36415; 70450; 72125; 80053; 81003; 83605; 83735; 85025; 85610; 86140; 99284; 99285; C1758; J3490; J7040